=== PATIENT | female | born 1985 ===

== ENCOUNTER → 2020-03-26 08:10 | Outpatient (BNVA) | payer MEDICAID, SELFPAY | PROVIDERS: PCP Family Medicine; Referring Provider Family Medicine; Visit Provider Student in an Organized Health Care Education/Training Program | DX: L40.50 Arthropathic psoriasis, unspecified (principal); L40.9 Psoriasis, unspecified; Z79.899 Other long term (current) drug therapy | CPT/HCPCS: 99214 ==

== ENCOUNTER 2020-06-24 14:02 | Outpatient (REF) | payer MEDICAID, SELFPAY | END 2020-06-24 14:03 | disposition home or self-care (01) | LOC: HO.LAB 14:02 | PROVIDERS: Visit Provider Internal Medicine | DX: Z20.828 Contact with and (suspected) exposure to other viral communicable diseases (principal) | CPT/HCPCS: 36415; C9803; U0003 ==

== ENCOUNTER → 2020-06-30 12:53 | Outpatient (BNVA) | payer MEDICAID, SELFPAY | PROVIDERS: PCP Family Medicine; Visit Provider Student in an Organized Health Care Education/Training Program | DX: Z76.89 Persons encountering health services in other specified circumstances (principal) ==

== ENCOUNTER 2020-11-03 14:29 | Outpatient (REF) | payer MEDICAID, SELFPAY ==
[2020-11-03 15:02] LABS: MANUAL DIFF FLAG NO
[2020-11-03 15:06] LABS: Basophils Percent Auto 0.1 % (0-2); Eosinophils Absolute Auto 0.6 X10*3/uL (0.0-0.4); Eosinophils Percent Auto 6.9 % (0-4); Hematocrit 36.5 % (37-47); Hemoglobin 11.6 g/dl (12.0-16.0); Imm Gran Abs Auto 0.02 X10*3/uL (0.00-0.03); Imm Gran Pct Auto 0.2 % (0.0-0.4); Lymphocytes Absolute Auto 2.1 X10*3/uL (1.2-4.9); Lymphocytes Percent Auto 25.6 % (20-40); Mean Corpuscular HGB Conc 31.8 g/dl (31.0-35.0); Mean Corpuscular Hemoglobin 27.6 pg (27.0-33.0); Mean Corpuscular Volume 86.7 fL (80-98); Mean Platelet Volume 10.4 fL (9.4-12.3); Monocytes Absolute Auto 0.7 X10*3/uL (0.1-1.2); Monocytes Percent Auto 8.1 % (2-11); Neutrophils Absolute Auto 4.8 X10*3/uL (2.0-8.3); Neutrophils Percent Auto 59.1 % (45-73); Platelet Count 336 X10*3/uL (160-400); Red Blood Count 4.21 X10*6/uL (4.20-5.50); Red Cell Distribution Width 14.3 % (11.0-16.0); White Blood Count 8.1 X10*3/uL (4.8-10.8)
[2020-11-03 15:29] LABS: Alanine Aminotransferase 13 U/L (0-31); Albumin Level 4.1 g/dL (3.5-5.0); Alkaline Phosphatase 81 U/L (39-117); Anion Gap 12 (12-20); Aspartate Amino Transferase 16 U/L (5-31); Bilirubin Total 0.4 mg/dL (0.0-1.0); Blood Urea Nitrogen 12 mg/dL (9-16); C Reactive Protein 2.13 mg/dL (< or = 0.50); Calcium 9.3 mg/dL (8.4-10.2); Carbon Dioxide 25 mmol/L (22-29); Chloride 108 mmol/L (96-108); Estimated Glomerular Filt Rate > 60; Glucose Random 73 mg/dL (60-115); Potassium 4.6 mmol/L (3.3-5.1); Sodium 140 mmol/L (135-145); Total Protein 6.9 g/dL (6.5-8.0)
[2020-11-03 15:43] LABS: Erythrocyte Sedimentation Rate 28 MM/HR (0-20)
== END 2020-11-03 14:30 | disposition home or self-care (01) ==
LOC: HO.LAB 14:29
PROVIDERS: PCP Family Medicine; Visit Provider Student in an Organized Health Care Education/Training Program
DX: L40.50 Arthropathic psoriasis, unspecified (principal)
CPT/HCPCS: 36415; 80053; 85025; 85652; 86140

== ENCOUNTER → 2020-11-05 13:57 | Outpatient (BNVA) | payer MEDICAID, SELFPAY | PROVIDERS: Visit Provider Student in an Organized Health Care Education/Training Program ==

== ENCOUNTER → 2020-12-17 07:47 | Outpatient (BNVA) | payer MEDICAID, SELFPAY | PROVIDERS: PCP Family Medicine; Visit Provider Student in an Organized Health Care Education/Training Program | DX: L40.50 Arthropathic psoriasis, unspecified (principal) | CPT/HCPCS: 99212 ==

== ENCOUNTER 2021-02-11 13:40 | Emergency (ER) | payer OTHER, MEDICAID, SELFPAY ==
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
[2021-02-11 14:05] VITALS: BP 108/46; PULSE 69; RESP 18; TEMP 36.4; O2SAT 99; BMI 52.8
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
== END 2021-02-11 18:20 | disposition home or self-care (01) ==
PROVIDERS: Emergency Provider Emergency Medicine; PCP Family Medicine
DX: S13.4XXA Sprain of ligaments of cervical spine, initial encounter (principal); V43.62XA Car passenger injured in collision with other type car in traffic accident, initial encounter; Y93.89 Activity, other specified; Y92.414 Local residential or business street as the place of occurrence of the external cause; Y99.9 Unspecified external cause status
CPT/HCPCS: 72125; 72128; 72131; 73030; 99282; 99284

== ENCOUNTER 2021-03-01 14:23 | Outpatient (REF) | payer MEDICAID, SELFPAY ==
--- NOTE | ~2021-03-01 | XR_ITS ---
EXAMINATION: XR HAND-BILATERAL CLINICAL INFORMATION: Psoriasis. COMPARISON: Left hand radiographs done on 07/21/2013. TECHNIQUE: 3 views each of both hands were obtained. FINDINGS: Right hand: Mild diffuse osteopenia is noted. Arthropathy at the distal radioulnar joint and the ulnar carpal joints are present. Small erosive changes are also noted within the intercarpal joints along the radial aspect of the hand. Erosive arthritic changes are noted at the DIP joint of the third digit. Soft tissues are unremarkable. Left hand: Mild diffuse osteopenia. Arthropathy at the distal radioulnar joint and ulnocarpal joints. Erosive arthropathy is noted at the DIP joint of the third digit. Erosive changes also noted within the distal part of the scaphoid. Soft tissues are unremarkable. XR/XR hand RT min 3V IMPRESSION: Abnormal radiographic appearance of both hands showing features consistent with psoriatic arthropathy.
--- NOTE | ~2021-03-01 | XR_ITS ---
EXAMINATION: XR HAND-BILATERAL CLINICAL INFORMATION: Psoriasis. COMPARISON: Left hand radiographs done on 07/21/2013. TECHNIQUE: 3 views each of both hands were obtained. FINDINGS: Right hand: Mild diffuse osteopenia is noted. Arthropathy at the distal radioulnar joint and the ulnar carpal joints are present. Small erosive changes are also noted within the intercarpal joints along the radial aspect of the hand. Erosive arthritic changes are noted at the DIP joint of the third digit. Soft tissues are unremarkable. Left hand: Mild diffuse osteopenia. Arthropathy at the distal radioulnar joint and ulnocarpal joints. Erosive arthropathy is noted at the DIP joint of the third digit. Erosive changes also noted within the distal part of the scaphoid. Soft tissues are unremarkable. XR/XR hand LT min 3V IMPRESSION: Abnormal radiographic appearance of both hands showing features consistent with psoriatic arthropathy.
[2021-03-01 14:59] LABS: MANUAL DIFF FLAG NO
[2021-03-01 15:03] LABS: Basophils Percent Auto 0.1 % (0-2); Eosinophils Absolute Auto 0.2 X10*3/uL (0.0-0.4); Eosinophils Percent Auto 2.4 % (0-4); Hemoglobin 11.8 g/dl (12.0-16.0); Imm Gran Abs Auto 0.02 X10*3/uL (0.00-0.03); Imm Gran Pct Auto 0.3 % (0.0-0.4); Lymphocytes Percent Auto 27.6 % (20-40); Mean Corpuscular HGB Conc 31.9 g/dl (31.0-35.0); Mean Corpuscular Hemoglobin 27.4 pg (27.0-33.0); Mean Platelet Volume 10.3 fL (9.4-12.3); Monocytes Absolute Auto 0.5 X10*3/uL (0.1-1.2); Monocytes Percent Auto 7.1 % (2-11); Neutrophils Absolute Auto 4.5 X10*3/uL (2.0-8.3); Neutrophils Percent Auto 62.5 % (45-73); Platelet Count 368 X10*3/uL (160-400); Red Cell Distribution Width 14.9 % (11.0-16.0); White Blood Count 7.2 X10*3/uL (4.8-10.8)
[2021-03-01 15:17] LABS: Alanine Aminotransferase 11 U/L (0-31); Albumin Level 4.4 g/dL (3.5-5.0); Alkaline Phosphatase 86 U/L (39-117); Anion Gap 16 (12-20); Aspartate Amino Transferase 18 U/L (5-31); Bilirubin Total 0.5 mg/dL (0.0-1.0); Blood Urea Nitrogen 14 mg/dL (9-16); C Reactive Protein 2.03 mg/dL (< or = 0.50); Calcium 10.1 mg/dL (8.4-10.2); Carbon Dioxide 24 mmol/L (22-29); Chloride 106 mmol/L (96-108); Estimated Glomerular Filt Rate > 60; Glucose Random 92 mg/dL (60-115); Potassium 4.8 mmol/L (3.3-5.1); Sodium 141 mmol/L (135-145); Total Protein 7.3 g/dL (6.5-8.0)
[2021-03-01 16:13] LABS: Erythrocyte Sedimentation Rate 29 MM/HR (0-20)
== END 2021-03-01 14:24 | disposition home or self-care (01) ==
LOC: HO.LAB 14:23
PROVIDERS: PCP Family Medicine; Visit Provider Student in an Organized Health Care Education/Training Program
DX: L40.50 Arthropathic psoriasis, unspecified (principal)
CPT/HCPCS: 36415; 73130; 80053; 85025; 85652; 86140

== ENCOUNTER 2021-03-16 15:32 | Outpatient (REF) | payer MEDICAID, SELFPAY ==
--- NOTE | ~2021-03-16 | XR_ITS ---
EXAMINATION: X-RAY RIGHT ANKLE X-RAY RIGHT FOOT CLINICAL INFORMATION: Pain. COMPARISON: Radiograph of the right foot dated from 04/02/2019. TECHNIQUE: 2 views of the right ankle and 3 views of the right foot were obtained FINDINGS: No evidence of acute fractures or malalignment. The talar dome and ankle mortise are intact. The tibiofibular syndesmosis is preserved. No radiopaque foreign bodies or joint effusions. XR/XR foot RT min 3V IMPRESSION: No acute fractures or malalignment.
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
== END 2021-03-16 15:33 | disposition home or self-care (01) ==
LOC: HO.XRAY 15:32
PROVIDERS: Absent Provider Family Medicine; PCP Family Medicine; Visit Provider Nurse Practitioner Family
DX: M25.571 Pain in right ankle and joints of right foot (principal); M79.671 Pain in right foot
CPT/HCPCS: 73610; 73630

== ENCOUNTER 2021-05-30 12:52 | Outpatient (REF) | payer MEDICAID, SELFPAY ==
[2021-05-30 14:22] LABS: MANUAL DIFF FLAG NO
[2021-05-30 14:35] LABS: Basophils Percent Auto 0.2 % (0-2); Eosinophils Absolute Auto 0.1 X10*3/uL (0.0-0.4); Hematocrit 35.8 % (37.0-47.0); Hemoglobin 11.6 g/dl (12.0-16.0); Imm Gran Abs Auto 0.02 X10*3/uL (0.00-0.03); Imm Gran Pct Auto 0.3 % (0.0-0.4); Lymphocytes Absolute Auto 1.8 X10*3/uL (1.2-4.9); Lymphocytes Percent Auto 27.8 % (20-40); Mean Corpuscular HGB Conc 32.4 g/dl (31.0-35.0); Mean Corpuscular Hemoglobin 28.4 pg (27.0-33.0); Mean Corpuscular Volume 87.7 fL (80.0-98.0); Mean Platelet Volume 10.4 fL (9.4-12.3); Monocytes Absolute Auto 0.5 X10*3/uL (0.1-1.2); Monocytes Percent Auto 7.6 % (2-11); Neutrophils Absolute Auto 4.1 x10*3/uL (2.0-8.3); Neutrophils Percent Auto 62.1 % (45-73); Platelet Count 300 X10*3/uL (160-400); Red Blood Count 4.08 X10*6/uL (4.20-5.50); Red Cell Distribution Width 14.5 % (11.0-16.0); White Blood Count 6.6 X10*3/uL (4.8-10.8)
[2021-05-30 14:58] LABS: Alanine Aminotransferase 15 U/L (0-31); Albumin Level 4.1 g/dL (3.5-5.0); Alkaline Phosphatase 80 U/L (39-117); Anion Gap 11 (12-20); Aspartate Amino Transferase 19 U/L (5-31); Bilirubin Total < 0.2 mg/dL (0.0-1.0); Blood Urea Nitrogen 10 mg/dL (9-16); C Reactive Protein 2.36 mg/dL (< or = 0.50); Calcium 9.8 mg/dL (8.4-10.2); Carbon Dioxide 26 mmol/L (22-29); Chloride 107 mmol/L (96-108); Estimated Glomerular Filt Rate > 60; Glucose Random 90 mg/dL (60-115); Potassium 4.7 mmol/L (3.3-5.1); Sodium 139 mmol/L (135-145); Total Protein 7.2 g/dL (6.5-8.0)
[2021-05-30 15:17] LABS: Erythrocyte Sedimentation Rate 36 MM/HR (0-20)
[2021-05-31 08:07] LABS: HBS Num1 0.53 mIU/mL (0-7.99); ~HepC Num1 0.07 S/CO (0.00-0.79); ~Hepatitis B Surface Antibody NONREACTIVE (Nonreactive); ~Hepatitis C Antibody Nonreactive (Nonreactive)
[2021-05-31 08:34] LABS: HBc Num1 0.06 S/CO (0.00-0.79); HBsAGNum1 0.22 S/CO (0.00-0.99); Hepatitis B Core Antibody Nonreactive (Nonreactive); Hepatitis B Surface Antigen Negative (Negative)
[2021-06-01 08:33] LABS: Hepatitis A Antibody IgM 0.15 Index (0-0.79); ~Hepatitis A Antibody IgM Nonreactive (Nonreactive)
[2021-06-01 21:17] LABS: TS Negative Control Passed; TS Panel A 0; TS Panel B 0; TS Positive Control Passed; TSpotTB Negative (Negative)
== END 2021-05-30 12:53 | disposition home or self-care (01) ==
LOC: HO.LAB 12:52
PROVIDERS: PCP Family Medicine; Visit Provider Nurse Practitioner Family
DX: L40.50 Arthropathic psoriasis, unspecified (principal); Z88.8 Allergy status to other drugs, medicaments and biological substances; Z91.013 Allergy to seafood; Z79.899 Other long term (current) drug therapy
CPT/HCPCS: 36415; 80053; 85025; 85652; 86140; 86481; 86704; 86706; 86709; 86803; 87340; 99212

== ENCOUNTER 2021-08-16 14:45 | Outpatient (REF) | payer MEDICAID, SELFPAY ==
--- NOTE | 2021-08-16 | PFT_ITS ---
FLOWS: FEV1 86% of predicted at 2.55 L. FVC 89% of predicted at 3.19 L. FEV1 to FVC ratio of 0.80. No bronchodilator response. LUNG VOLUMES: Total lung capacity 92% of predicted at 4.52 L. Residual volume 99% of predicted at 1.48 L. Slow vital capacity 89% of predicted at 3.05 L. Expiratory reserve volume 30% of predicted at 0.36 L. Diffusion capacity is normal. IMPRESSION: No obstructive or restrictive ventilatory defect. No bronchodilator response. Decreased expiratory reserve volume suggests extrathoracic restriction likely secondary to abdominal obesity. Steven Sotelo MD AP/MODL / [id number]
== END 2021-08-16 14:46 | disposition home or self-care (01) ==
LOC: HO.RESP 14:45
PROVIDERS: Visit Provider Family Medicine
DX: R07.89 Other chest pain (principal)
CPT/HCPCS: 94060; 94727; 94729

== ENCOUNTER 2021-09-02 12:49 | Outpatient (REF) | payer MEDICAID, SELFPAY ==
[2021-09-02 14:04] LABS: MANUAL DIFF FLAG NO
[2021-09-02 14:12] LABS: Basophils Percent Auto 0.1 % (0-2); Eosinophils Absolute Auto 0.1 X10*3/uL (0.0-0.4); Eosinophils Percent Auto 1.4 % (0-4); Hematocrit 36.7 % (37.0-47.0); Hemoglobin 11.6 g/dl (12.0-16.0); Imm Gran Abs Auto 0.03 X10*3/uL (0.00-0.03); Imm Gran Pct Auto 0.3 % (0.0-0.4); Lymphocytes Absolute Auto 1.8 X10*3/uL (1.2-4.9); Lymphocytes Percent Auto 21.1 % (20-40); Mean Corpuscular HGB Conc 31.6 g/dl (31.0-35.0); Mean Corpuscular Hemoglobin 27.9 pg (27.0-33.0); Mean Corpuscular Volume 88.2 fL (80.0-98.0); Mean Platelet Volume 10.4 fL (9.4-12.3); Monocytes Absolute Auto 0.7 X10*3/uL (0.1-1.2); Monocytes Percent Auto 7.7 % (2-11); Neutrophils Percent Auto 69.4 % (45-73); Platelet Count 358 X10*3/uL (160-400); Red Blood Count 4.16 X10*6/uL (4.20-5.50); Red Cell Distribution Width 15.1 % (11.0-16.0); White Blood Count 8.7 X10*3/uL (4.8-10.8)
[2021-09-02 14:42] LABS: Alanine Aminotransferase 16 U/L (0-31); Albumin Level 4.2 g/dL (3.5-5.0); Alkaline Phosphatase 90 U/L (39-117); Anion Gap 13 (12-20); Aspartate Amino Transferase 18 U/L (5-31); Bilirubin Total 0.3 mg/dL (0.0-1.0); Blood Urea Nitrogen 11 mg/dL (9-16); C Reactive Protein 2.48 mg/dL (< or = 0.50); Calcium 9.8 mg/dL (8.4-10.2); Carbon Dioxide 26 mmol/L (22-29); Chloride 104 mmol/L (96-108); Estimated Glomerular Filt Rate > 60; Glucose Random 88 mg/dL (60-115); Potassium 4.5 mmol/L (3.3-5.1); Sodium 138 mmol/L (135-145); Total Protein 7.2 g/dL (6.5-8.0)
[2021-09-02 14:50] LABS: Erythrocyte Sedimentation Rate 31 MM/HR (0-20)
[2021-09-02 16:02] LABS: Iron 36 mcg/dL (30-160)
[2021-09-02 16:16] LABS: Ferritin 14 ng/mL (10-122)
[2021-09-02 16:22] LABS: Percent Iron Saturation 9 % (15-50); Total Iron Binding Capacity 403 mcg/dL (228-428); Unsaturated Iron Binding 367 ug/dL
== END 2021-09-02 12:50 | disposition home or self-care (01) ==
LOC: HO.LAB 12:49
PROVIDERS: PCP Family Medicine; Visit Provider Nurse Practitioner Family
DX: L40.50 Arthropathic psoriasis, unspecified (principal); D64.9 Anemia, unspecified; Z86.16 Personal history of COVID-19; Z98.84 Bariatric surgery status; Z79.899 Other long term (current) drug therapy
CPT/HCPCS: 36415; 80053; 82728; 83540; 85025; 85652; 86140; 99212

== ENCOUNTER 2021-11-02 12:37 | Outpatient (REF) | payer MEDICAID, SELFPAY ==
[2021-11-02 12:59] LABS: MANUAL DIFF FLAG NO
[2021-11-02 13:36] LABS: Basophils Percent Auto 0.1 % (0-2); Eosinophils Absolute Auto 0.2 X10*3/uL (0.0-0.4); Eosinophils Percent Auto 2.2 % (0-4); Hematocrit 37.5 % (37.0-47.0); Hemoglobin 12.2 g/dl (12.0-16.0); Imm Gran Abs Auto 0.02 X10*3/uL (0.00-0.03); Imm Gran Pct Auto 0.2 % (0.0-0.4); Lymphocytes Absolute Auto 1.7 X10*3/uL (1.2-4.9); Lymphocytes Percent Auto 21.1 % (20-40); Mean Corpuscular HGB Conc 32.5 g/dl (31.0-35.0); Mean Corpuscular Hemoglobin 27.9 pg (27.0-33.0); Mean Corpuscular Volume 85.6 fL (80.0-98.0); Mean Platelet Volume 10.9 fL (9.4-12.3); Monocytes Absolute Auto 0.7 X10*3/uL (0.1-1.2); Monocytes Percent Auto 7.9 % (2-11); Neutrophils Absolute Auto 5.6 x10*3/uL (2.0-8.3); Neutrophils Percent Auto 68.5 % (45-73); Platelet Count 332 X10*3/uL (160-400); Red Blood Count 4.38 X10*6/uL (4.20-5.50); Red Cell Distribution Width 14.6 % (11.0-16.0); White Blood Count 8.2 X10*3/uL (4.8-10.8)
[2021-11-02 14:09] LABS: Alanine Aminotransferase 14 U/L (0-31); Albumin Level 4.3 g/dL (3.5-5.0); Alkaline Phosphatase 80 U/L (39-117); Anion Gap 11 (12-20); Aspartate Amino Transferase 17 U/L (5-31); Bilirubin Total 0.4 mg/dL (0.0-1.0); Blood Urea Nitrogen 15 mg/dL (9-16); C Reactive Protein 2.06 mg/dL (< or = 0.50); Calcium 9.9 mg/dL (8.4-10.2); Carbon Dioxide 27 mmol/L (22-29); Chloride 104 mmol/L (96-108); Estimated Glomerular Filt Rate > 60; Glucose Random 86 mg/dL (60-115); Iron 46 mcg/dL (30-160); Percent Iron Saturation 13 % (15-50); Potassium 4.3 mmol/L (3.3-5.1); Sodium 138 mmol/L (135-145); Total Iron Binding Capacity 361 mcg/dL (228-428); Total Protein 7.2 g/dL (6.5-8.0); Unsaturated Iron Binding 315 ug/dL
[2021-11-02 14:11] LABS: Ferritin 25 ng/mL (10-122)
[2021-11-02 14:14] LABS: Erythrocyte Sedimentation Rate 23 MM/HR (0-20)
== END 2021-11-02 12:38 | disposition home or self-care (01) ==
LOC: HO.LAB 12:37
PROVIDERS: PCP Family Medicine; Visit Provider Nurse Practitioner Family
DX: D64.9 Anemia, unspecified (principal); L40.50 Arthropathic psoriasis, unspecified
CPT/HCPCS: 36415; 80053; 82728; 83540; 85025; 85652; 86140

== ENCOUNTER → 2021-11-28 14:18 | Outpatient (BNVA) | payer MEDICAID, SELFPAY | PROVIDERS: PCP Internal Medicine; Visit Provider Nurse Practitioner Family | DX: L40.50 Arthropathic psoriasis, unspecified (principal); L40.9 Psoriasis, unspecified | CPT/HCPCS: 99212 ==

== ENCOUNTER 2022-02-06 13:38 | Outpatient (REF) | payer MEDICAID, SELFPAY ==
[2022-02-06 13:56] LABS: MANUAL DIFF FLAG NO
[2022-02-06 14:15] LABS: Basophils Percent Auto 0.2 % (0-2); Eosinophils Absolute Auto 0.1 X10*3/uL (0.0-0.4); Eosinophils Percent Auto 2.4 % (0-4); Hematocrit 37.2 % (37.0-47.0); Hemoglobin 12.1 g/dl (12.0-16.0); Imm Gran Abs Auto 0.01 X10*3/uL (0.00-0.03); Imm Gran Pct Auto 0.2 % (0.0-0.4); Lymphocytes Absolute Auto 1.3 X10*3/uL (1.2-4.9); Lymphocytes Percent Auto 25.7 % (20-40); Mean Corpuscular HGB Conc 32.5 g/dl (31.0-35.0); Mean Corpuscular Hemoglobin 29.2 pg (27.0-33.0); Mean Corpuscular Volume 89.6 fL (80.0-98.0); Mean Platelet Volume 11.1 fL (9.4-12.3); Monocytes Absolute Auto 0.4 X10*3/uL (0.1-1.2); Monocytes Percent Auto 8.6 % (2-11); Neutrophils Absolute Auto 3.1 x10*3/uL (2.0-8.3); Neutrophils Percent Auto 62.9 % (45-73); Platelet Count 329 X10*3/uL (160-400); Red Blood Count 4.15 X10*6/uL (4.20-5.50); Red Cell Distribution Width 15.2 % (11.0-16.0)
[2022-02-06 14:43] LABS: Alanine Aminotransferase 12 U/L (0-31); Albumin Level 4.3 g/dL (3.5-5.0); Alkaline Phosphatase 67 U/L (39-117); Anion Gap 15 (12-20); Aspartate Amino Transferase 15 U/L (5-31); Bilirubin Total 0.9 mg/dL (0.0-1.0); Blood Urea Nitrogen 11 mg/dL (9-16); Calcium 9.7 mg/dL (8.4-10.2); Carbon Dioxide 26 mmol/L (22-29); Chloride 107 mmol/L (96-108); Estimated Glomerular Filt Rate > 60; Glucose Random 86 mg/dL (60-115); Potassium 4.4 mmol/L (3.3-5.1); Sodium 144 mmol/L (135-145); Total Protein 7.2 g/dL (6.5-8.0)
[2022-02-06 14:57] LABS: Erythrocyte Sedimentation Rate 22 MM/HR (0-20)
== END 2022-02-06 13:39 | disposition home or self-care (01) ==
LOC: HO.LAB 13:38
PROVIDERS: PCP Family Medicine; Visit Provider Nurse Practitioner Family
DX: L40.50 Arthropathic psoriasis, unspecified (principal)
CPT/HCPCS: 36415; 80053; 85025; 85652; 86140

== ENCOUNTER → 2022-02-28 09:05 | Outpatient (BNVA) | payer MEDICAID, SELFPAY | PROVIDERS: PCP Family Medicine; Visit Provider Nurse Practitioner Family | DX: L40.50 Arthropathic psoriasis, unspecified (principal); M79.672 Pain in left foot | CPT/HCPCS: 99212 ==

== ENCOUNTER 2022-05-04 09:06 | Outpatient (REF) | payer MEDICAID, SELFPAY ==
--- NOTE | ~2022-05-04 | MM_ITS ---
EXAMINATION: MM DIAGNOSTIC DIGITAL BREAST TOMOSYNTHESIS, BILATERAL US DIAGNOSTIC ULTRASOUND BREAST/AXILLA, RIGHT CLINICAL INFORMATION: 36-year-old with recent superficial palpable concern right axilla, smaller than a pea. No prior breast imaging. The lifetime risk of breast cancer based on the Tyrer-Cuzick Model is 17%. COMPARISON: None (current study represents initial baseline exam). TECHNIQUE: Digital breast tomosynthesis is performed in both the craniocaudal and mediolateral oblique views along with computer-aided detection (CAD). Synthesized 2D images are generated from the tomosynthesis. Additional right MLO view is provided. Ultrasound right axillary is performed with patient supine and sitting upright. Grayscale imaging and color Doppler are performed without and with harmonics. Patient is able to point to the site of clinical concern at time of imaging. FINDINGS: There are scattered areas of fibroglandular density (ACR BI-RADS breast composition Category b). Breast tissue composition borders on predominantly fatty. Background stromal and fibroglandular densities appear normal. No significant mass or architectural abnormality or abnormal calcifications. The axilla are unremarkable. The skin contours are smooth. No skin thickening or coarsening of the Cheikh's ligaments. Ultrasound right axilla shows no cystic or solid mass, intradermal lesion, or edema tracking in soft tissue planes. No adenopathy. No hyperemia. Results are discussed with the patient at time of visit. MM/MM tomosynthesis diagnostic BI IMPRESSION: -No mammographic evidence of malignancy or inflammatory changes. -Unremarkable targeted right axillary ultrasound. ASSESSMENT: BI-RADS 1: Negative RECOMMENDATION: 1. Patient should be managed based on the clinical impression. 2. Otherwise, routine annual screening mammography, beginning age 40, or earlier as clinical risk factors warrant. This patient's information was entered into a reminder system with a target due date for their next mammogram.
== END 2022-05-04 09:07 | disposition home or self-care (01) ==
LOC: HO.MAMMO 09:06
PROVIDERS: PCP Family Medicine; Visit Provider Family Medicine
DX: R22.31 Localized swelling, mass and lump, right upper limb (principal)
CPT/HCPCS: 76642; 77062; 77066

== ENCOUNTER 2022-05-31 09:25 | Outpatient (REF) | payer MEDICAID, SELFPAY ==
[2022-05-31 09:43] LABS: MANUAL DIFF FLAG NO
[2022-05-31 10:20] LABS: Basophils Percent Auto 0.3 % (0-2); Eosinophils Absolute Auto 0.1 X10*3/uL (0.0-0.4); Eosinophils Percent Auto 4.5 % (0-4); Hematocrit 37.3 % (37.0-47.0); Imm Gran Abs Auto 0.01 X10*3/uL (0.00-0.03); Imm Gran Pct Auto 0.3 % (0.0-0.4); Lymphocytes Absolute Auto 1.3 X10*3/uL (1.2-4.9); Lymphocytes Percent Auto 41.2 % (20-40); Mean Corpuscular HGB Conc 32.2 g/dl (31.0-35.0); Mean Corpuscular Volume 90.1 fL (80.0-98.0); Monocytes Absolute Auto 0.3 X10*3/uL (0.1-1.2); Monocytes Percent Auto 8.1 % (2-11); Neutrophils Absolute Auto 1.4 x10*3/uL (2.0-8.3); Neutrophils Percent Auto 45.6 % (45-73); Platelet Count 281 X10*3/uL (160-400); Red Blood Count 4.14 X10*6/uL (4.20-5.50); Red Cell Distribution Width 13.4 % (11.0-16.0); White Blood Count 3.1 X10*3/uL (4.8-10.8)
[2022-05-31 11:01] LABS: Alanine Aminotransferase 31 U/L (0-31); Aspartate Amino Transferase 30 U/L (5-31); Estimated Glomerular Filt Rate > 60
[2022-05-31 11:13] LABS: Erythrocyte Sedimentation Rate 16 MM/HR (0-20)
== END 2022-05-31 09:26 | disposition home or self-care (01) ==
LOC: HO.LAB 09:25
PROVIDERS: PCP Family Medicine; Visit Provider Nurse Practitioner Family
DX: L40.50 Arthropathic psoriasis, unspecified (principal); Z79.899 Other long term (current) drug therapy
CPT/HCPCS: 36415; 82565; 84450; 84460; 85025; 85652; 86140; 99212

== ENCOUNTER 2022-06-07 09:34 | Outpatient (REF) | payer MEDICAID, SELFPAY ==
[2022-06-07 09:45] LABS: MANUAL DIFF FLAG NO
[2022-06-07 10:49] LABS: Basophils Percent Auto 0.2 % (0-2); Eosinophils Absolute Auto 0.3 X10*3/uL (0.0-0.4); Eosinophils Percent Auto 6.5 % (0-4); Hematocrit 37.1 % (37.0-47.0); Imm Gran Abs Auto 0.01 X10*3/uL (0.00-0.03); Imm Gran Pct Auto 0.2 % (0.0-0.4); Lymphocytes Absolute Auto 1.3 X10*3/uL (1.2-4.9); Lymphocytes Percent Auto 25.7 % (20-40); Mean Corpuscular HGB Conc 32.3 g/dl (31.0-35.0); Mean Corpuscular Hemoglobin 29.4 pg (27.0-33.0); Mean Corpuscular Volume 90.9 fL (80.0-98.0); Mean Platelet Volume 11.5 fL (9.4-12.3); Monocytes Absolute Auto 0.4 X10*3/uL (0.1-1.2); Monocytes Percent Auto 8.1 % (2-11); Neutrophils Absolute Auto 2.9 x10*3/uL (2.0-8.3); Neutrophils Percent Auto 59.3 % (45-73); Platelet Count 306 X10*3/uL (160-400); Red Blood Count 4.08 X10*6/uL (4.20-5.50); Red Cell Distribution Width 13.4 % (11.0-16.0); White Blood Count 4.9 X10*3/uL (4.8-10.8)
== END 2022-06-07 09:35 | disposition home or self-care (01) ==
LOC: HO.LAB 09:34
PROVIDERS: PCP Family Medicine; Visit Provider Nurse Practitioner Family
DX: L40.50 Arthropathic psoriasis, unspecified (principal)
CPT/HCPCS: 36415; 85025

== ENCOUNTER 2022-07-10 09:42 | Outpatient (REF) | payer MEDICAID, SELFPAY ==
[2022-07-10 09:57] LABS: MANUAL DIFF FLAG NO
[2022-07-10 10:10] LABS: Basophils Percent Auto 0.2 % (0-2); Eosinophils Absolute Auto 0.3 X10*3/uL (0.0-0.4); Eosinophils Percent Auto 5.1 % (0-4); Hematocrit 35.9 % (37.0-47.0); Hemoglobin 11.8 g/dl (12.0-16.0); Imm Gran Abs Auto 0.02 X10*3/uL (0.00-0.03); Imm Gran Pct Auto 0.4 % (0.0-0.4); Lymphocytes Absolute Auto 1.7 X10*3/uL (1.2-4.9); Lymphocytes Percent Auto 32.2 % (20-40); Mean Corpuscular HGB Conc 32.9 g/dl (31.0-35.0); Mean Corpuscular Hemoglobin 30.1 pg (27.0-33.0); Mean Corpuscular Volume 91.6 fL (80.0-98.0); Monocytes Absolute Auto 0.5 X10*3/uL (0.1-1.2); Monocytes Percent Auto 8.8 % (2-11); Neutrophils Absolute Auto 2.7 x10*3/uL (2.0-8.3); Neutrophils Percent Auto 53.3 % (45-73); Platelet Count 285 X10*3/uL (160-400); Red Blood Count 3.92 X10*6/uL (4.20-5.50); Red Cell Distribution Width 13.8 % (11.0-16.0); White Blood Count 5.1 X10*3/uL (4.8-10.8)
== END 2022-07-10 09:43 | disposition home or self-care (01) ==
LOC: HO.LAB 09:42
PROVIDERS: PCP Family Medicine; Visit Provider Nurse Practitioner Family
DX: L40.50 Arthropathic psoriasis, unspecified (principal)
CPT/HCPCS: 36415; 85025

== ENCOUNTER 2022-10-05 12:15 | Outpatient (REF) | payer MEDICAID, SELFPAY ==
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
--- NOTE | 2022-10-05 13:18 | ECG_ITS ---
Test Reason : 287.898 Blood Pressure : / mmHG Vent. Rate : 051 BPM Atrial Rate : 051 BPM P-R Int : 136 ms QRS Dur : 090 ms QT Int : 414 ms P-R-T Axes : 041 040 028 degrees QTc Int : 381 ms Sinus bradycardia Otherwise normal ECG When compared with ECG of 25-OCT-2017 15:26, No significant change was found Referred By: Lilo Aguirre Electronically Signed By:ADIN NIXON
[2022-10-05 13:33] LABS: MANUAL DIFF FLAG NO
[2022-10-05 13:58] LABS: Basophils Percent Auto 0.2 % (0-2); Eosinophils Absolute Auto 0.1 X10*3/uL (0.0-0.4); Eosinophils Percent Auto 3.1 % (0-4); Hematocrit 35.7 % (37.0-47.0); Hemoglobin 11.5 g/dl (12.0-16.0); Lymphocytes Absolute Auto 1.6 X10*3/uL (1.2-4.9); Lymphocytes Percent Auto 34.7 % (20-40); Mean Corpuscular HGB Conc 32.2 g/dl (31.0-35.0); Mean Corpuscular Hemoglobin 29.4 pg (27.0-33.0); Mean Corpuscular Volume 91.3 fL (80.0-98.0); Mean Platelet Volume 11.1 fL (9.4-12.3); Monocytes Absolute Auto 0.5 X10*3/uL (0.1-1.2); Monocytes Percent Auto 11.6 % (2-11); Neutrophils Absolute Auto 2.3 x10*3/uL (2.0-8.3); Neutrophils Percent Auto 50.4 % (45-73); Platelet Count 291 X10*3/uL (160-400); Red Blood Count 3.91 X10*6/uL (4.20-5.50); Red Cell Distribution Width 13.9 % (11.0-16.0); White Blood Count 4.6 X10*3/uL (4.8-10.8)
[2022-10-05 14:38] LABS: Erythrocyte Sedimentation Rate 16 MM/HR (0-20)
[2022-10-05 14:49] LABS: Alanine Aminotransferase 11 U/L (0-31); Albumin Level 4.4 g/dL (3.5-5.0); Alkaline Phosphatase 68 U/L (39-117); Anion Gap 15 (12-20); Aspartate Amino Transferase 16 U/L (5-31); Bilirubin Total 0.9 mg/dL (0.0-1.0); Blood Urea Nitrogen 13 mg/dL (9-16); C Reactive Protein 0.61 mg/dL (< or = 0.50); Calcium 9.6 mg/dL (8.4-10.2); Carbon Dioxide 22 mmol/L (22-29); Chloride 107 mmol/L (96-108); Estimated Glomerular Filt Rate > 60; Glucose Random 83 mg/dL (60-115); Sodium 139 mmol/L (135-145); Total Protein 6.9 g/dL (6.5-8.0)
[2022-10-06 04:26] LABS: HBS Num1 0.76 mIU/mL (0-7.99); HBc Num1 0.09 S/CO (0.00-0.79); HBsAGNum1 0.51 S/CO (0.00-0.99); Hepatitis A Antibody IgM 0.25 Index (0-0.79); Hepatitis B Core Antibody Nonreactive (Nonreactive); Hepatitis B Surface Antigen Negative (Negative); ~HepC Num1 0.07 S/CO (0.00-0.79); ~Hepatitis A Antibody IgM Nonreactive (Nonreactive); ~Hepatitis B Surface Antibody NONREACTIVE (Nonreactive); ~Hepatitis C Antibody Nonreactive (Nonreactive)
[2022-10-08 00:24] LABS: TS Negative Control Passed; TS Panel A 0; TS Panel B 0; TS Positive Control Passed; TSpotTB Negative (Negative)
== END 2022-10-05 12:16 | disposition home or self-care (01) ==
LOC: HO.LAB 12:15
PROVIDERS: PCP Family Medicine; Visit Provider Nurse Practitioner Family
DX: Z11.1 Encounter for screening for respiratory tuberculosis (principal); L40.50 Arthropathic psoriasis, unspecified; M54.50 Low back pain, unspecified; L40.9 Psoriasis, unspecified; Z87.898 Personal history of other specified conditions
CPT/HCPCS: 36415; 72100; 80053; 85025; 85652; 86140; 86481; 86704; 86706; 86709; 86803; 87340; 93005; 99212

== ENCOUNTER 2023-02-08 08:34 | Outpatient (AMB) | payer MEDICAID, SELFPAY ==
--- NOTE | 2023-02-08 08:44 | MHC.OFFVIS ---
Intake Vital Signs 02/08/23 08:45 Height 5 ft 2 in Weight 190 lb 14.725 oz BMI 34.9 BP 104/66 Blood Pressure Location Rt brachial Position Sitting Pulse 58 Pulse Source Pulse Oximeter Temp 97.4 F Temp Source Skin Pulse Oximetry (%) 98 Intake Visit Reasons: PSA Intake Note: Pt seen today for PsA follow up. Lots of knee pain and right hand; inflammation better. Reports hands always being cold, denies changes in color Hris Manager Required: No Accompanied by: Self / Same As Patient Allergies adalimumab [From HUMIRA] Allergy (Unknown, Verified 02/08/23 08:49) Rash seafood Allergy (Verified 02/08/23 08:49) RASH secukinumab [From Cosentyx] Allergy (Verified 02/08/23 08:49) Chest Pain Medication List - Last Reconciled 02/08/23 by Benny Rojas MD acetaminophen 1,000 mg PO Q8H albuterol 90 mcg/actuation mcg inhalation aripiprazole 4 mg PO DAILY baclofen 10 mg PO TID cholecalciferol (vitamin D3) 1,250 mcg PO QWEEK clonidine HCl 0.1 mg PO BID gabapentin 400 mg PO TID hydroxyzine HCl 10 - 20 mg PO Q8H PRN lidocaine 5% 1 patch topical DAILY trazodone 50 mg PO BEDTIME PRN venlafaxine ER 37.5 mg PO DAILY venlafaxine ER 150 mg PO DAILY HPI HPI Comments History of Present Illness Details 37yoF presents for follow-up of Psoriatic Arthritis. She was last seen in 10/08 by Norma Aguirre. Last visit patient complained of squeezing chest pain right after doing the Cosentyx injection. She had an EKG which was unremarkable and she was evaluated by her PCP and was told that no cause for chest pain was found. She has been off the Cosentyx since last visit. Patient is complaining of increasing bilateral knee pain worse in the right knee especially with standing up after sitting down for some time. Right wrist pain. She also has constant mid back pain. She states that her hands are always cold but he never change color to white or blue or purple. [facility] Medical History Allergic urticaria Arthralgia Dermatitis Gestational diabetes mellitus History of PCOS Iron deficiency Mass of finger Seronegative arthritis Surgical History H/O gastric bypass History of tubal ligation Umbilical hernia Family History Mother Thyroid cancer Hypertension Hx of cardiac pacemaker Social History Household Members: Family Housing: House Are you a primary healthcare recruiter to a significant other at home: No Do you presently have visiting nurse or other home services: No Alcohol intake: current Alcohol intake frequency: does not drink Patient Tobacco Use Status: Never used Tobacco e-Cigarette/Vaping Use: Never Used Review of Systems Musc Reports back pain and Reports arthralgias Physical Exam Vital Signs: Last Vital Signs Temp 97.4 F 02/08/23 08:45 Pulse 58 02/08/23 08:45 BP 104/66 02/08/23 08:45 Pulse Ox 98 02/08/23 08:45 BMI result Body Mass Index 34.9 Const General: cooperative, healthy appearing and comfortable Nutritional Appearance: obese Orientation/consciousness: patient oriented x3 Limitations: no limitations HEENT Head: Yes normocephalic and Yes atraumatic Mouth: moist mucous membranes Resp Effort & Inspection: normal respiratory effort and able to speak in complete sentences Auscultation: clear to auscultation bilaterally Cardio Rate: regular rate Rhythm: regular rhythm GI Inspection: No distended Palpation (GI): Soft to palpation Skin General skin exam: no rashes or lesions noted Neuro General: patient oriented x3 Extrem Other: Right wrist tenderness to palpation and pain with full flexion and extension along with crepitus Flexion deformity of the right index PIP Back discomfort with straight leg raise test bilaterally Negative Fabere test bilaterally Brenda test 10-14 cm Bilateral knee crepitus and right knee pain with full flexion Normal nailfold capillaroscopy Results Reviewed Results Reviewed: Previous serology negative RF/CCP/HLA B27/AISHA by IFA Assessment & Plan Assessment & Plan (1) Psoriatic arthritis: Comment: dx around 2009 erosive Humira- Discontinued due Rash Enbrel- 09/2017 - 09/2018 discontinued due to insurance change Xeljanz 11/03 - 04/06 - discontinued due to active disease on exam Cosentyx- 04/06 -10/08 DC due to chest pain Code(s): L40.50 - Arthropathic psoriasis, unspecified Plan: This is a 37-year-old female with is erosive psoriatic arthritis who presents for follow-up. She has been off the Cosentyx since last visit due to chest pain associated with injections. The chest pain lasts about 2-3 minutes. An EKG was unremarkable. Today patient is complaining of worsening right wrist pain as well as bilateral knee pain and back pain. Will check patient's inflammatory markers, check bilateral knee x-rays as well as SI joint x-rays to evaluate for sacroiliitis. Restart Cosentyx with a loading dose as patient has been off the medication for 4 months. Advised patient to use hydroxyzine 30 minutes to 1 hour before doing the Cosentyx injection. Try Salonpas patches for her back pain. Labs today and before next visit in 4 months (2) Psoriasis: Code(s): L40.9 - Psoriasis, unspecified Plan: No psoriasis at this time. Plan I spent 26 minutes reviewing patient's chart, evaluating patient, ordering diagnostic workup, counseling patient and documenting in the chart Orders: Orders Comprehensive Met. Panel Today L40.50 - Arthropathic psoriasis, unspecified C Reactive Protein Today L40.50 - Arthropathic psoriasis, unspecified Complete Blood Count Auto Diff Today L40.50 - Arthropathic psoriasis, unspecified Erythrocyte Sedimentation Rate Today L40.50 - Arthropathic psoriasis, unspecified XR knee LT 3V Today L40.50 - Arthropathic psoriasis, unspecified XR knee RT 3V Today L40.50 - Arthropathic psoriasis, unspecified XR knee standing BI Today L40.50 - Arthropathic psoriasis, unspecified XR sacroiliac joint min 3V Today L40.50 - Arthropathic psoriasis, unspecified Complete Blood Count Auto Diff 4 Months L40.50 - Arthropathic psoriasis, unspecified Comprehensive Met. Panel 4 Months L40.50 - Arthropathic psoriasis, unspecified C Reactive Protein 4 Months L40.50 - Arthropathic psoriasis, unspecified Erythrocyte Sedimentation Rate 4 Months L40.50 - Arthropathic psoriasis, unspecified Medications: New secukinumab (Cosentyx Pen) loading dose: 150 mg at weeks 0, 1, 2, 3, and 4 followed by 150 mg every 4 weeks 5 mL 1RF Coding Level of Care Code Est Pt Level 4 (52254) Diagnoses Psoriatic arthritis L40.50 Psoriasis L40.9
[2023-02-08 08:45] VITALS: BP 104/66; PULSE 58; TEMP 36.3; O2SAT 98; BMI 34.9
== END 2023-02-08 09:17 | disposition home or self-care (01) ==
PROVIDERS: PCP Family Medicine; Visit Provider Student in an Organized Health Care Education/Training Program
DX: L40.50 Arthropathic psoriasis, unspecified (principal); L40.9 Psoriasis, unspecified
CPT/HCPCS: 99214

== ENCOUNTER → 2023-02-08 08:34 | Outpatient (BNVA) | payer MEDICAID, SELFPAY | PROVIDERS: PCP Family Medicine; Visit Provider Student in an Organized Health Care Education/Training Program | DX: L40.50 Arthropathic psoriasis, unspecified (principal); L40.9 Psoriasis, unspecified | CPT/HCPCS: 99212 ==

== ENCOUNTER 2023-02-08 09:24 | Outpatient (REF) | payer MEDICAID, SELFPAY ==
--- NOTE | ~2023-02-08 | XR_ITS ---
EXAMINATION: XR KNEE, RIGHT CLINICAL INFORMATION: Arthropathic psoriasis. COMPARISON: Radiographs dated 01/11/2018. TECHNIQUE: AP, lateral, tunnel, and sunrise views of the right knee. FINDINGS: No fracture or joint effusion. Alignment is anatomic. Joint spaces are maintained. A sclerotic, well marginated bone island is seen within the proximal tibial shaft laterally. No abnormal soft tissue calcification. XR/XR knee LT 4V IMPRESSION: Unremarkable right knee. EXAMINATION: XR KNEE, LEFT CLINICAL INFORMATION: Arthropathic psoriasis. COMPARISON: Radiographs dated 05/21/2019. TECHNIQUE: AP, lateral, tunnel, and sunrise views of the left knee. FINDINGS: No fracture or joint effusion. Alignment is anatomic. Joint spaces are maintained. No abnormal soft tissue calcification. IMPRESSION: Normal left knee.
--- NOTE | ~2023-02-08 | XR_ITS ---
EXAMINATION: XR KNEE, RIGHT CLINICAL INFORMATION: Arthropathic psoriasis. COMPARISON: Radiographs dated 01/11/2018. TECHNIQUE: AP, lateral, tunnel, and sunrise views of the right knee. FINDINGS: No fracture or joint effusion. Alignment is anatomic. Joint spaces are maintained. A sclerotic, well marginated bone island is seen within the proximal tibial shaft laterally. No abnormal soft tissue calcification. XR/XR knee RT 4V IMPRESSION: Unremarkable right knee. EXAMINATION: XR KNEE, LEFT CLINICAL INFORMATION: Arthropathic psoriasis. COMPARISON: Radiographs dated 05/21/2019. TECHNIQUE: AP, lateral, tunnel, and sunrise views of the left knee. FINDINGS: No fracture or joint effusion. Alignment is anatomic. Joint spaces are maintained. No abnormal soft tissue calcification. IMPRESSION: Normal left knee.
--- NOTE | ~2023-02-08 | XR_ITS ---
EXAMINATION: XR SACROILIAC JOINTS CLINICAL INFORMATION: Arthropathic psoriasis. COMPARISON: Sacroiliac joints dated 04/05/2015; lumbar spine radiographs dated 10/05/2022.. TECHNIQUE: AP and bilateral Judet views of the sacroiliac joints FINDINGS: Bones and soft tissues are normal. No fracture. Alignment is anatomic. Sacroiliac joint spaces are well-maintained without erosions or surrounding sclerosis. A transitional lumbosacral junction is more fully appreciated on the lumbar spine radiographs dated 10/05/2022. XR/XR sacroiliac joint min 3V IMPRESSION: Normal sacroiliac joints.
[2023-02-08 10:37] LABS: MANUAL DIFF FLAG NO
[2023-02-08 10:43] LABS: Basophils Percent Auto 0.2 % (0-2); Eosinophils Absolute Auto 0.1 X10*3/uL (0.0-0.4); Hematocrit 36.2 % (37.0-47.0); Hemoglobin 11.5 g/dl (12.0-16.0); Imm Gran Abs Auto 0.01 X10*3/uL (0.00-0.03); Imm Gran Pct Auto 0.2 % (0.0-0.4); Lymphocytes Absolute Auto 1.6 X10*3/uL (1.2-4.9); Lymphocytes Percent Auto 35.6 % (20-40); Mean Corpuscular HGB Conc 31.8 g/dl (31.0-35.0); Mean Corpuscular Hemoglobin 28.5 pg (27.0-33.0); Mean Corpuscular Volume 89.8 fL (80.0-98.0); Mean Platelet Volume 11.2 fL (9.4-12.3); Monocytes Absolute Auto 0.4 X10*3/uL (0.1-1.2); Monocytes Percent Auto 8.8 % (2-11); Neutrophils Absolute Auto 2.4 x10*3/uL (2.0-8.3); Neutrophils Percent Auto 53.2 % (45-73); Platelet Count 309 X10*3/uL (160-400); Red Blood Count 4.03 X10*6/uL (4.20-5.50); Red Cell Distribution Width 15.2 % (11.0-16.0); White Blood Count 4.4 X10*3/uL (4.8-10.8)
[2023-02-08 11:04] LABS: Alanine Aminotransferase 14 U/L (0-31); Albumin Level 4.2 g/dL (3.5-5.0); Alkaline Phosphatase 65 U/L (39-117); Anion Gap 9 (12-20); Aspartate Amino Transferase 19 U/L (5-31); Bilirubin Total 0.7 mg/dL (0.0-1.0); Blood Urea Nitrogen 11 mg/dL (9-16); C Reactive Protein 0.23 mg/dL (< or = 0.50); Calcium 9.5 mg/dL (8.4-10.2); Carbon Dioxide 26 mmol/L (22-29); Chloride 108 mmol/L (96-108); Estimated Glomerular Filt Rate > 60; Glucose Random 86 mg/dL (60-115); Potassium 4.4 mmol/L (3.3-5.1); Sodium 139 mmol/L (135-145); Total Protein 7.3 g/dL (6.5-8.0)
[2023-02-08 11:29] LABS: Erythrocyte Sedimentation Rate 13 MM/HR (0-20)
== END 2023-02-08 09:25 | disposition home or self-care (01) ==
LOC: HO.10HDL 09:24
PROVIDERS: PCP Family Medicine; Visit Provider Student in an Organized Health Care Education/Training Program
DX: L40.50 Arthropathic psoriasis, unspecified (principal); R07.9 Chest pain, unspecified; M54.9 Dorsalgia, unspecified; M25.531 Pain in right wrist; Z79.899 Other long term (current) drug therapy
CPT/HCPCS: 36415; 72202; 73564; 80053; 85025; 85652; 86140

== ENCOUNTER 2023-06-19 07:43 | Outpatient (REF) | payer MEDICAID, SELFPAY ==
[2023-06-19 11:21] LABS: MANUAL DIFF FLAG NO
[2023-06-19 11:24] LABS: Basophils Percent Auto 0.2 % (0-2); Eosinophils Absolute Auto 0.1 X10*3/uL (0.0-0.4); Eosinophils Percent Auto 2.8 % (0-4); Hematocrit 33.4 % (37.0-47.0); Hemoglobin 10.8 g/dl (12.0-16.0); Imm Gran Abs Auto 0.01 X10*3/uL (0.00-0.03); Imm Gran Pct Auto 0.2 % (0.0-0.4); Lymphocytes Absolute Auto 1.5 X10*3/uL (1.2-4.9); Lymphocytes Percent Auto 34.8 % (20-40); Mean Corpuscular HGB Conc 32.3 g/dl (31.0-35.0); Mean Corpuscular Hemoglobin 27.8 pg (27.0-33.0); Mean Corpuscular Volume 86.1 fL (80.0-98.0); Mean Platelet Volume 11.2 fL (9.4-12.3); Monocytes Absolute Auto 0.4 X10*3/uL (0.1-1.2); Monocytes Percent Auto 9.6 % (2-11); Neutrophils Absolute Auto 2.2 x10*3/uL (2.0-8.3); Neutrophils Percent Auto 52.4 % (45-73); Platelet Count 277 X10*3/uL (160-400); Red Blood Count 3.88 X10*6/uL (4.20-5.50); Red Cell Distribution Width 15.8 % (11.0-16.0); White Blood Count 4.3 X10*3/uL (4.8-10.8)
[2023-06-19 11:56] LABS: Alanine Aminotransferase 11 U/L (0-31); Albumin Level 4.1 g/dL (3.5-5.0); Alkaline Phosphatase 60 U/L (39-117); Anion Gap 13 (12-20); Aspartate Amino Transferase 17 U/L (5-31); Bilirubin Total 0.6 mg/dL (0.0-1.0); Blood Urea Nitrogen 13 mg/dL (9-16); C Reactive Protein 0.52 mg/dL (< or = 0.50); Calcium 9.1 mg/dL (8.4-10.2); Carbon Dioxide 23 mmol/L (22-29); Chloride 108 mmol/L (96-108); Estimated Glomerular Filt Rate > 60; Glucose Random 89 mg/dL (60-115); Potassium 3.9 mmol/L (3.3-5.1); Sodium 140 mmol/L (135-145); Total Protein 7.1 g/dL (6.5-8.0)
[2023-06-19 12:00] LABS: Erythrocyte Sedimentation Rate 23 MM/HR (0-20)
== END 2023-06-19 07:44 | disposition home or self-care (01) ==
LOC: HO.10HDL 07:43
PROVIDERS: Visit Provider Student in an Organized Health Care Education/Training Program
DX: L40.50 Arthropathic psoriasis, unspecified (principal); L40.9 Psoriasis, unspecified; Z79.620 Long term (current) use of immunosuppressive biologic
CPT/HCPCS: 36415; 80053; 85025; 85652; 86140; 99212

== ENCOUNTER 2023-06-19 07:53 | Outpatient (AMB) | payer MEDICAID, SELFPAY ==
[2023-06-19 07:59] VITALS: BP 104/82; PULSE 90; TEMP 36.5; O2SAT 96; BMI 34.8
--- NOTE | 2023-06-19 07:59 | A.OFFVIS_ITS ---
Intake Vital Signs 06/19/23 07:59 Height 5 ft 2 in Weight 190 lb 4.143 oz BMI 34.8 BP 104/82 Blood Pressure Location Rt brachial Position Sitting Pulse 90 Pulse Source Pulse Oximeter Temp 97.7 F Temp Source Skin Pulse Oximetry (%) 96 Oxygen Delivery Method Room Air Intake Visit Reasons: PsA Allergies adalimumab [From HUMIRA] Allergy (Unknown, Verified 02/08/23 08:49) Rash seafood Allergy (Verified 02/08/23 08:49) RASH secukinumab [From Cosentyx] Allergy (Verified 02/08/23 08:49) Chest Pain HPI HPI Comments History of Present Illness Details 37yoF presents for follow-up of Psoriati c Arthritis. She was last seen in 02/07 Patient states that she is doing well overall. She had COVID infection last month and held her Cosentyx. She will be doing the Cosentyx injection soon. She states that she was having intermittent right upper chest tenderness to palpation. This has gone away. She denies any psoriasis rashes. No other complaints [facility] Medical History Dermatitis Gestational diabetes mellitus Allergic urticaria Iron deficiency Seronegative arthritis History of PCOS Arthralgia Mass of finger Surgical History Umbilical hernia History of tubal ligation H/O gastric bypass Family History Mother Thyroid cancer Hypertension Hx of cardiac pacemaker Social History Household Members: Family Housing: House Are you a primary senior care assistant to a significant other at home: No Do you presently have visiting nurse or other home services: No 75 years or older and lives alone: No Alcohol intake: current Alcohol intake frequency: does not drink Patient Tobacco Use Status: Never used Tobacco e-Cigarette/Vaping Use: Never Used Review of Systems Musc Denies arthralgias and Denies joint swelling Skin/Breast Denies rash Physical Exam Vital Signs: Last Vital Signs Temp 97.7 F 06/19/23 07:59 Pulse 90 06/19/23 07:59 BP 104/82 06/19/23 07:59 Pulse Ox 96 06/19/23 07:59 Oxygen Delivery Method Room Air 06/19/23 07:59 BMI result Body Mass Index 34.8 Const General: cooperative, healthy appearing and comfortable Nutritional Appearance: obese Orientation/consciousness: patient oriented x3 Limitations: no limitations HEENT Head: Yes normocephalic and Yes atraumatic Mouth: moist mucous membranes Resp Effort & Inspection: normal respiratory effort and able to speak in complete sentences Auscultation: clear to auscultation bilaterally Cardio Rate: regular rate Rhythm: regular rhythm GI Inspection: No distended Palpation (GI): Soft to palpation Skin General skin exam: no rashes or lesions noted Neuro General: patient oriented x3 Extrem Other: No active synovitis Flexion deformity of the right index PIP Back discomfort with straight leg raise test bilaterally Negative Fabere test bilaterally Bilateral knee crepitus without pain Normal nailfold capillaroscopy Results Reviewed Results Reviewed: Previous serology negative RF/CCP/HLA B27/AISHA by IFA Assessment & Plan Assessment & Plan (1) Psoriatic arthritis: Comment: dx around 2009 erosive Humira- Discontinued due Rash Enbrel- 09/2017 - 09/2018 discontinued due to insurance change Xeljanz 11/03 - 04/06 - discontinued due to active disease on exam Cosentyx- 04/06 -10/08 DC due to chest pain Code(s): L40.50 - Arthropathic psoriasis, unspecified Plan: This is a 37-year-old female with erosive psoriatic arthritis who presents for follow-up. On Cosentyx 150 mg every 4 weeks. She held her Cosentyx last month as she was having a COVID infection. This has resolved. She will do the Cosentyx injection soon. There is no active synovitis today. Continue with Cosentyx 150 mg every 4 weeks Labs today and before next visit in 4 months (2) Psoriasis: Code(s): L40.9 - Psoriasis, unspecified Plan: No psoriasis at this time. 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 Advised patient to hold Cosentyx at the 1st sign of infection or fever. Plan I spent 26 minutes reviewing patient's chart, evaluating patient, ordering diagnostic workup, counseling patient and documenting in the chart Orders: Orders Complete Blood Count Auto Diff 4 Months L40.50 - Arthropathic psoriasis, unspecified Comprehensive Met. Panel 4 Months L40.50 - Arthropathic psoriasis, unspecified C Reactive Protein 4 Months L40.50 - Arthropathic psoriasis, unspecified Erythrocyte Sedimentation Rate 4 Months L40.50 - Arthropathic psoriasis, unspecified Coding Level of Care Code Est Pt Level 4 (64514) Diagnoses Psoriatic arthritis L40.50 Psoriasis L40.9 penitentiary (current) use of immunosuppressive biologic Z79.620
== END 2023-06-19 08:27 | disposition home or self-care (01) ==
PROVIDERS: PCP Family Medicine; Referring Provider Family Medicine; Visit Provider Student in an Organized Health Care Education/Training Program
DX: L40.50 Arthropathic psoriasis, unspecified (principal); L40.9 Psoriasis, unspecified; Z79.620 Long term (current) use of immunosuppressive biologic
CPT/HCPCS: 99214

== ENCOUNTER 2023-10-12 09:39 | Outpatient (REF) | payer MEDICAID, SELFPAY ==
[2023-10-12 10:57] LABS: MANUAL DIFF FLAG NO
[2023-10-12 11:03] LABS: Basophils Percent Auto 0.4 % (0-2); Eosinophils Absolute Auto 0.1 X10*3/uL (0.0-0.4); Eosinophils Percent Auto 2.8 % (0-4); Hematocrit 36.9 % (37.0-47.0); Hemoglobin 12.1 g/dl (12.0-16.0); Imm Gran Abs Auto 0.01 X10*3/uL (0.00-0.03); Imm Gran Pct Auto 0.2 % (0.0-0.4); Lymphocytes Absolute Auto 1.4 X10*3/uL (1.2-4.9); Lymphocytes Percent Auto 29.3 % (20-40); Mean Corpuscular HGB Conc 32.8 g/dl (31.0-35.0); Mean Corpuscular Hemoglobin 29.9 pg (27.0-33.0); Mean Corpuscular Volume 91.1 fL (80.0-98.0); Mean Platelet Volume 10.6 fL (9.4-12.3); Monocytes Absolute Auto 0.5 X10*3/uL (0.1-1.2); Monocytes Percent Auto 9.3 % (2-11); Neutrophils Absolute Auto 2.9 x10*3/uL (2.0-8.3); Platelet Count 292 X10*3/uL (160-400); Red Blood Count 4.05 X10*6/uL (4.20-5.50); Red Cell Distribution Width 14.6 % (11.0-16.0); White Blood Count 4.9 X10*3/uL (4.8-10.8)
[2023-10-12 11:22] LABS: Alanine Aminotransferase 15 U/L (0-31); Albumin Level 4.2 g/dL (3.5-5.0); Alkaline Phosphatase 71 U/L (39-117); Anion Gap 8 (12-20); Aspartate Amino Transferase 18 U/L (5-31); Bilirubin Total 0.6 mg/dL (0.0-1.0); Blood Urea Nitrogen 12 mg/dL (9-16); C Reactive Protein 0.28 mg/dL (< or = 0.50); Calcium 9.2 mg/dL (8.4-10.2); Carbon Dioxide 26 mmol/L (22-29); Chloride 108 mmol/L (96-108); Estimated Glomerular Filt Rate > 60; Glucose Random 85 mg/dL (60-115); Potassium 4.3 mmol/L (3.3-5.1); Sodium 138 mmol/L (135-145); Total Protein 7.3 g/dL (6.5-8.0)
[2023-10-12 11:44] LABS: Erythrocyte Sedimentation Rate 14 MM/HR (0-20)
== END 2023-10-12 09:40 | disposition home or self-care (01) ==
LOC: HO.10HDL 09:39
PROVIDERS: Visit Provider Student in an Organized Health Care Education/Training Program
DX: L40.50 Arthropathic psoriasis, unspecified (principal)
CPT/HCPCS: 36415; 80053; 85025; 85652; 86140

== ENCOUNTER 2023-10-19 09:49 | Outpatient (REF) | payer MEDICAID, SELFPAY ==
[2023-10-19 11:40] LABS: Hemoglobin 12.6 g/dl (12.0-16.0); Mean Corpuscular HGB Conc 33.2 g/dl (31.0-35.0); Mean Corpuscular Hemoglobin 30.6 pg (27.0-33.0); Mean Corpuscular Volume 92.2 fL (80.0-98.0); Mean Platelet Volume 10.7 fL (9.4-12.3); Platelet Count 295 X10*3/uL (160-400); Red Blood Count 4.12 X10*6/uL (4.20-5.50); Red Cell Distribution Width 14.7 % (11.0-16.0); White Blood Count 4.1 X10*3/uL (4.8-10.8)
[2023-10-19 11:55] LABS: Estimated Average Glucose 94 mg/dL; Hemoglobin A1c % 4.9 % (<6.0)
[2023-10-19 12:24] LABS: Alanine Aminotransferase 17 U/L (0-31); Albumin Level 4.3 g/dL (3.5-5.0); Alkaline Phosphatase 73 U/L (39-117); Anion Gap 14 (12-20); Aspartate Amino Transferase 20 U/L (5-31); Bilirubin Total 0.6 mg/dL (0.0-1.0); Blood Urea Nitrogen 12 mg/dL (9-16); Calcium 9.9 mg/dL (8.4-10.2); Carbon Dioxide 25 mmol/L (22-29); Chloride 105 mmol/L (96-108); Estimated Glomerular Filt Rate > 60; Glucose Random 84 mg/dL (60-115); Iron 51 mcg/dL (30-160); Percent Iron Saturation 18 % (15-50); Potassium 4.5 mmol/L (3.3-5.1); Sodium 139 mmol/L (135-145); Total Iron Binding Capacity 291 mcg/dL (228-428); Total Protein 7.5 g/dL (6.5-8.0); Unsaturated Iron Binding 240 ug/dL
[2023-10-19 12:45] LABS: Ferritin 18 ng/mL (10-122)
== END 2023-10-19 09:50 | disposition home or self-care (01) ==
LOC: HO.HHCL 09:49
PROVIDERS: Visit Provider Student in an Organized Health Care Education/Training Program
DX: Z01.818 Encounter for other preprocedural examination (principal)
CPT/HCPCS: 36415; 80053; 82728; 83036; 83540; 85027

== ENCOUNTER 2023-12-27 12:52 | Outpatient (AMB) | payer MEDICAID, SELFPAY ==
--- NOTE | 2023-12-27 13:11 | MHC.OFFVIS ---
Vital Signs 12/27/23 13:15 Height 5 ft 2 in Weight 181 lb 10.574 oz BMI 33.2 BP 118/70 Blood Pressure Location Lt brachial Position Sitting Pulse 68 Pulse Source Pulse Oximeter Pulse Oximetry (%) 99 Oxygen Delivery Method Room Air Intake Visit Reasons: PsA/CM Intake Note: Patient presents for PsA. Allergies adalimumab [From HUMIRA] Allergy (Unknown, Verified 12/27/23 13:13) Rash seafood Allergy (Verified 12/27/23 13:13) RASH secukinumab [From Cosentyx] Allergy (Verified 12/27/23 13:13) Chest Pain Medication List - Last Reconciled 12/27/23 by Benny Rojas MD acetaminophen 1,000 mg PO Q8H albuterol 90 mcg/actuation mcg inhalation aripiprazole 4 mg PO DAILY baclofen 10 mg PO TID cholecalciferol (vitamin D3) 1,250 mcg PO QWEEK clonidine HCl 0.1 mg PO BID Cosentyx Pen (secukinumab) 150 mg at weeks 0, 1, 2, 3, and 4 followed by 150 mg every 4 weeks NS gabapentin 400 mg PO TID NS hydroxyzine HCl 10 - 20 mg PO Q8H PRN lidocaine 5% 1 patch topical DAILY trazodone 50 mg PO BEDTIME PRN venlafaxine ER 37.5 mg PO DAILY venlafaxine ER 150 mg PO DAILY HPI Comments Details: 38oF presents for follow-up of Psoriatic Arthritis. She was last seen in 06/2023 Patient held her Cosentyx since 09/2023 as she was going for a panniculectomy. He was asked to hold her Cosentyx by her surgeon. Her panniculectomy has healed well. Denies any surgical complications. She states that since she stopped Cosentyx she has had an episode when she went to the emergency room with left knee swelling. Per patient they did an ultrasound and there was no blood clot in her leg. She has been having lower back pain as well as multiple achy and stiff joints since she stopped Cosentyx. Denies any psoriasis patches [facility] Medical History Dermatitis Gestational diabetes mellitus Allergic urticaria Iron deficiency Seronegative arthritis History of PCOS Arthralgia Mass of finger Surgical History S/P panniculectomy Umbilical hernia History of tubal ligation H/O gastric bypass Family History Mother Thyroid cancer Hypertension Hx of cardiac pacemaker Social History Household Members: Family Housing: House Are you a primary primary care nurse practitioner to a significant other at home: No Do you presently have visiting nurse or other home services: No 75 years or older and lives alone: No Alcohol intake: current Alcohol intake frequency: does not drink Patient Tobacco Use Status: Never used Tobacco e-Cigarette/Vaping Use: Never Used Review of Systems Musc Reports back pain, Reports arthralgias and Reports stiffness Skin/Breast Denies rash Physical Exam Vital Signs: Last Vital Signs Pulse 68 12/27/23 13:15 BP 118/70 12/27/23 13:15 Pulse Ox 99 12/27/23 13:15 Oxygen Delivery Method Room Air 12/27/23 13:15 BMI result Body Mass Index 33.2 Const General: cooperative, healthy appearing and comfortable Nutritional Appearance: obese Orientation/consciousness: patient oriented x3 Limitations: no limitations HEENT Head: Yes normocephalic and Yes atraumatic Mouth: moist mucous membranes Resp Effort & Inspection: normal respiratory effort and able to speak in complete sentences Auscultation: clear to auscultation bilaterally Cardio Rate: regular rate Rhythm: regular rhythm GI Inspection: No distended Palpation (GI): Soft to palpation Skin General skin exam: no rashes or lesions noted Neuro General: patient oriented x3 Extrem Other: No active synovitis Flexion deformity of the right index PIP Left lumbar paraspinal muscle tenderness Back discomfort with straight leg raise test bilaterally Negative Fabere test bilaterally Right 4th toe swelling and tenderness Bilateral knee crepitus without pain Normal nailfold capillaroscopy Results Reviewed Results Reviewed: Previous serology negative RF/CCP/HLA B27/AISHA by IFA Assessment & Plan Assessment & Plan (1) Psoriatic arthritis: Comment: dx around 2009 erosive Humira- Discontinued due Rash Enbrel- 09/2017 - 09/2018 discontinued due to insurance change Xeljanz 11/03 - 04/06 - discontinued due to active disease on exam Cosentyx- 04/06 -10/08 DC due to chest pain, restarted afterwards chest pain likely unrelated to Cosentyx Code(s): L40.50 - Arthropathic psoriasis, unspecified Category: Medical Plan: This is a 38-year-old female with erosive psoriatic arthritis who presents for follow-up. Patient was doing quite well on Cosentyx 150 mg q.4 weeks however has held her Cosentyx since September 2023 because she was getting a panniculectomy. She has not had any surgical site complications. She is flaring as she has been off her medicines. Will need to restart Cosentyx. She will need another loading dose. Labs before next visit in 4 months (2) Psoriasis: Code(s): L40.9 - Psoriasis, unspecified Category: Medical Plan: No psoriasis at this time. 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 Advised patient to hold Cosentyx at the 1st sign of infection or fever. Plan I spent 26 minutes reviewing patient's chart, evaluating patient, ordering diagnostic workup, counseling patient and documenting in the chart Orders: Orders C Reactive Protein 4 Months L40.50 - Arthropathic psoriasis, unspecified Erythrocyte Sedimentation Rate 4 Months L40.50 - Arthropathic psoriasis, unspecified Hepatitis A,B,C Profile 4 Months Z11.59 - Encounter for screening for other viral diseases T Spot TB 4 Months Z11.7 - Encounter for testing for latent tuberculosis infection Complete Blood Count Auto Diff 4 Months L40.50 - Arthropathic psoriasis, unspecified Comprehensive Met. Panel 4 Months L40.50 - Arthropathic psoriasis, unspecified Medications: Changed From Cosentyx Pen (secukinumab) 150 mg subcut Q4W 1 mL 2RF NS To Cosentyx Pen (secukinumab) 150 mg at weeks 0, 1, 2, 3, and 4 followed by 150 mg every 4 weeks 4 mL 1RF NS Coding Level of Care Code Est Pt Level 4 (39386) Diagnoses Psoriatic arthritis L40.50 Psoriasis L40.9 residential (current) use of immunosuppressive biologic Z79.620
[2023-12-27 13:15] VITALS: BP 118/70; PULSE 68; O2SAT 99; BMI 33.2
== END 2023-12-27 13:46 | disposition home or self-care (01) ==
PROVIDERS: PCP Family Medicine; Visit Provider Student in an Organized Health Care Education/Training Program
DX: L40.50 Arthropathic psoriasis, unspecified (principal); L40.9 Psoriasis, unspecified; Z79.620 Long term (current) use of immunosuppressive biologic
CPT/HCPCS: 99214

== ENCOUNTER → 2023-12-27 12:52 | Outpatient (BNVA) | payer MEDICAID, SELFPAY | PROVIDERS: PCP Family Medicine; Visit Provider Student in an Organized Health Care Education/Training Program | DX: L40.50 Arthropathic psoriasis, unspecified (principal); L40.9 Psoriasis, unspecified; Z79.620 Long term (current) use of immunosuppressive biologic | CPT/HCPCS: 99212 ==

== ENCOUNTER 2024-04-28 09:19 | Outpatient (REF) | payer MEDICAID, SELFPAY ==
[2024-04-28 10:46] LABS: MANUAL DIFF FLAG NO
[2024-04-28 10:52] LABS: Basophils Percent Auto 0.5 % (0-2); Eosinophils Absolute Auto 0.1 X10*3/uL (0.0-0.4); Eosinophils Percent Auto 2.9 % (0-4); Hematocrit 37.2 % (37.0-47.0); Hemoglobin 12.1 g/dl (12.0-16.0); Imm Gran Abs Auto 0.01 X10*3/uL (0.00-0.03); Imm Gran Pct Auto 0.3 % (0.0-0.4); Lymphocytes Absolute Auto 1.2 X10*3/uL (1.2-4.9); Lymphocytes Percent Auto 30.9 % (20-40); Mean Corpuscular HGB Conc 32.5 g/dl (31.0-35.0); Mean Corpuscular Hemoglobin 29.8 pg (27.0-33.0); Mean Corpuscular Volume 91.6 fL (80.0-98.0); Mean Platelet Volume 10.5 fL (9.4-12.3); Monocytes Absolute Auto 0.3 X10*3/uL (0.1-1.2); Monocytes Percent Auto 8.1 % (2-11); Neutrophils Absolute Auto 2.2 x10*3/uL (2.0-8.3); Neutrophils Percent Auto 57.3 % (45-73); Platelet Count 325 X10*3/uL (160-400); Red Blood Count 4.06 X10*6/uL (4.20-5.50); Red Cell Distribution Width 13.3 % (11.0-16.0); White Blood Count 3.8 X10*3/uL (4.8-10.8)
[2024-04-28 11:07] LABS: Alanine Aminotransferase 19 U/L (0-31); Albumin Level 4.2 g/dL (3.5-5.0); Alkaline Phosphatase 76 U/L (39-117); Anion Gap 9 (12-20); Aspartate Amino Transferase 25 U/L (5-31); Bilirubin Total 0.8 mg/dL (0.0-1.0); Blood Urea Nitrogen 9 mg/dL (9-16); C Reactive Protein 0.42 mg/dL (< or = 0.50); Calcium 9.2 mg/dL (8.4-10.2); Carbon Dioxide 26 mmol/L (22-29); Chloride 108 mmol/L (96-108); Estimated Glomerular Filt Rate > 60; Glucose Random 103 mg/dL (60-115); Potassium 4.3 mmol/L (3.3-5.1); Sodium 139 mmol/L (135-145); Total Protein 7.2 g/dL (6.5-8.0)
[2024-04-28 11:31] LABS: Erythrocyte Sedimentation Rate 14 MM/HR (0-20)
[2024-04-28 11:33] LABS: HBS Num1 1.75 mIU/mL (0-7.99); HBc Num1 0.15 S/CO (0.00-0.79); HBsAGNum1 0.57 S/CO (0.00-0.99); Hepatitis B Core Antibody Nonreactive (Nonreactive); Hepatitis B Surface Antigen Negative (Negative); ~HepC Num1 0.09 S/CO (0.00-0.79); ~Hepatitis A Antibody IgM Nonreactive (Nonreactive); ~Hepatitis B Surface Antibody NONREACTIVE (Nonreactive); ~Hepatitis C Antibody Nonreactive (Nonreactive)
[2024-05-01 05:09] LABS: TS Negative Control Passed; TS Panel A 0; TS Panel B 0; TS Positive Control Passed; TSpotTB Negative (Negative)
== END 2024-04-28 09:20 | disposition home or self-care (01) ==
LOC: HO.10HDL 09:19
PROVIDERS: Visit Provider Student in an Organized Health Care Education/Training Program
DX: Z11.7 Encounter for testing for latent tuberculosis infection (principal); Z11.59 Encounter for screening for other viral diseases; L40.50 Arthropathic psoriasis, unspecified; L40.9 Psoriasis, unspecified; M54.50 Low back pain, unspecified; G89.29 Other chronic pain; Z96.20 Presence of otological and audiological implant, unspecified
CPT/HCPCS: 36415; 80053; 85025; 85652; 86140; 86481; 86704; 86706; 86709; 86803; 87340; 99212

== ENCOUNTER 2024-04-28 09:38 | Outpatient (AMB) | payer MEDICAID, SELFPAY ==
--- NOTE | 2024-04-28 09:46 | MHC.OFFVIS ---
Vital Signs 04/28/24 09:50 Height 5 ft 3.5 in Weight 182 lb 8.684 oz BMI 31.8 BP 115/70 Blood Pressure Location Lt brachial Position Sitting Pulse 64 Pulse Source Pulse Oximeter Pulse Oximetry (%) 99 Oxygen Delivery Method Room Air Intake Visit Reasons: PsA/cm Intake Note: Patient presents for PsA. Allergies adalimumab [From HUMIRA] Allergy (Unknown, Verified 04/28/24 09:50) Rash seafood Allergy (Verified 04/28/24 09:50) RASH secukinumab [From Cosentyx] Allergy (Verified 04/28/24 09:50) Chest Pain Medication List - Last Reconciled 04/28/24 by Benny Rojas MD acetaminophen 1,000 mg PO Q8H albuterol 90 mcg/actuation mcg inhalation aripiprazole 4 mg PO DAILY baclofen 10 mg PO TID cholecalciferol (vitamin D3) 1,250 mcg PO QWEEK clonidine HCl 0.1 mg PO BID Cosentyx Pen (secukinumab) 150 mg at weeks 0, 1, 2, 3, and 4 followed by 150 mg every 4 weeks NS gabapentin 400 mg PO TID NS hydroxyzine HCl 10 - 20 mg PO Q8H PRN lidocaine 5% 1 patch topical DAILY trazodone 50 mg PO BEDTIME PRN venlafaxine ER 37.5 mg PO DAILY venlafaxine ER 150 mg PO DAILY HPI Comments Details: 38oF presents for follow-up of Psoriatic Arthritis. She was last seen in 12/2023 She remains on Cosentyx regularly. She states that last week she had some pain and swelling of her right hand fingers. They lasted 2 or 3 days. It has resolved now. She states that she has been having lower mid back pain. 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 She states that she takes ibuprofen as needed for joint pains. She takes ibuprofen 800 mg about once a week. Psoriasis is well controlled [facility] Medical History Dermatitis Gestational diabetes mellitus Allergic urticaria Iron deficiency Seronegative arthritis History of PCOS Arthralgia Mass of finger Surgical History S/P panniculectomy Umbilical hernia History of tubal ligation H/O gastric bypass Family History Mother Thyroid cancer Hypertension Hx of cardiac pacemaker Social History Household Members: Family Housing: House Are you a primary healthcare network pricing consultant to a significant other at home: No Do you presently have visiting nurse or other home services: No 75 years or older and lives alone: No Alcohol intake: current Alcohol intake frequency: does not drink Patient Tobacco Use Status: Never used Tobacco e-Cigarette/Vaping Use: Never Used Review of Systems Musc Reports back pain, Reports arthralgias and Reports stiffness Skin/Breast Denies rash Physical Exam Vital Signs: Last Vital Signs Pulse 64 04/28/24 09:50 BP 115/70 04/28/24 09:50 Pulse Ox 99 04/28/24 09:50 Oxygen Delivery Method Room Air 04/28/24 09:50 BMI result Body Mass Index 31.8 Const General: cooperative, healthy appearing and comfortable Nutritional Appearance: obese Orientation/consciousness: patient oriented x3 Limitations: no limitations HEENT Head: Yes normocephalic and Yes atraumatic Mouth: moist mucous membranes Resp Effort & Inspection: normal respiratory effort and able to speak in complete sentences Auscultation: clear to auscultation bilaterally Cardio Rate: regular rate Rhythm: regular rhythm GI Inspection: No distended Palpation (GI): Soft to palpation Skin General skin exam: no rashes or lesions noted Neuro General: patient oriented x3 Extrem Other: No active synovitis both hands and wrists Flexion deformity of the right index PIP Lower lumbar vertebral tenderness as well as paraspinal muscle tenderness Back discomfort with straight leg raise test bilaterally Negative Fabere test bilaterally Bilateral knee crepitus without pain Normal nailfold capillaroscopy Assessment & Plan Assessment & Plan (1) Psoriatic arthritis: Comment: dx around 2009 erosive Humira- Discontinued due Rash Enbrel- 09/2017 - 09/2018 discontinued due to insurance change Xeljanz 11/03 - 04/06 - discontinued due to active disease on exam Cosentyx- 04/06 -10/08 DC due to chest pain, restarted afterwards chest pain likely unrelated to Cosentyx Code(s): L40.50 - Arthropathic psoriasis, unspecified Category: Medical Plan: This is a 38-year-old female with erosive psoriatic arthritis who presents for follow-up. doing quite well on Cosentyx 150 mg q.4 weeks. Her complaints are largely related to degenerative arthritis Continue with Cosentyx 150 mg q.4 weeks labs before next visit in 4 months (2) Psoriasis: Code(s): L40.9 - Psoriasis, unspecified Category: Medical Plan: No psoriasis at this time. 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 Advised patient to hold Cosentyx at the 1st sign of infection or fever. (4) Chronic lower back pain: Code(s): M54.50 - Low back pain, unspecified; G89.29 - Other chronic pain Category: Medical Qualifiers: Back pain laterality: midline Sciatica presence: without sciatica Qualified Code(s): M54.50 - Low back pain, unspecified; G89.29 - Other chronic pain Plan: Not interested in PT. Referred to pain manage Plan I spent 26 minutes reviewing patient's chart, evaluating patient, ordering diagnostic workup, counseling patient and documenting in the chart Orders: Orders Complete Blood Count Auto Diff 4 Months L40.50 - Arthropathic psoriasis, unspecified, Z79.620 - prison (current) use of immunosuppressive biologic Comprehensive Met. Panel 4 Months L40.50 - Arthropathic psoriasis, unspecified, Z79.620 - terminal makeup operator (current) use of immunosuppressive biologic C Reactive Protein 4 Months L40.50 - Arthropathic psoriasis, unspecified, Z79.620 - prison (current) use of immunosuppressive biologic Erythrocyte Sedimentation Rate 4 Months L40.50 - Arthropathic psoriasis, unspecified, Z79.620 - terminal makeup operator (current) use of immunosuppressive biologic Referrals Pain Management Referral M51.369 - Other intervertebral disc degeneration, lumbar region without mention of lumbar back pain or lower extremity pain Coding Level of Care Code Est Pt Level 4 (93245) Complex EM visit Add On G2211 Diagnoses Psoriatic arthritis L40.50 Psoriasis L40.9 terminal makeup operator (current) use of immunosuppressive biologic Z79.620 Chronic midline low back pain without sciatica M54.50; G89.29 Back pain laterality: midline Sciatica presence: without sciatica
[2024-04-28 09:50] VITALS: BP 115/70; PULSE 64; O2SAT 99; BMI 31.8
== END 2024-04-28 10:09 | disposition home or self-care (01) ==
PROVIDERS: PCP Family Medicine; Visit Provider Student in an Organized Health Care Education/Training Program
DX: L40.50 Arthropathic psoriasis, unspecified (principal); L40.9 Psoriasis, unspecified; Z79.620 Long term (current) use of immunosuppressive biologic; M54.50 Low back pain, unspecified; G89.29 Other chronic pain
CPT/HCPCS: 99214

== ENCOUNTER 2024-08-29 09:08 | Outpatient (REF) | payer MEDICAID, SELFPAY ==
--- OUTSIDE RECORDS SUMMARY | 2024-08-29 09:43 | XMS_ITS | Encounter Summary ---
Author Organization [employer] Address [address] [place] [address] Care Team Providers Care Media Manager Name Role Phone Ginger Medel MD Primary Care Provider [phone] David Miller Unavailable Unavailable Encounter Details Date Type Department Care Team (Late st Contact Info) Description 07/25/2022 Abstract [facility] MEDICINE [address], [place] [id number] Ginger Medel MD [address], [place] [phone] Social History Tobacco Use Types Packs/Day Years Used Date Smoking Tobacco: Never Assessed Comments Unknown Sex and Gender Information Value Date Recorded Sex Assigned at Female 04/17/2022 10:18 AM EDT Legal Sex Female 10:18 AM EDT Gender Identity Female 04/17/2022 10:18 AM EDT Sexual Orientation Straight 04/17/2022 10 :18 AM EDT documented as of this encounter Plan of Treatment Not on file documented as of this encounter Procedures Procedure Name Priority Date/Time Associated Diagnosis Comments PAP SMEAR Routine 05/14/2009 12:00 AM EST documented in this encounter Results * Pap Smear (05/14/2009 12:00 AM EST) Swab us Historical Provider LAB CYTOLOGY ORDERABLES F inal Result IMAGING documented in this encounter Visit Diagnoses Not on filedocumented in this encounter Additional Health Concerns Assessment Noted Time PHQ-9 Depression Total Score: 4 07/17/19 23 9:08 AM EST documented as of this encounter Care Teams Media Manager Relationship Specialty Start Date End Date Ginger Medel MD [address] [place] [address] PCP - General Family Medicine 06/18/18 David Miller FNP [address] [place] [address] Nurse Practitioner Family Medicine 05/01/23 documented as of this encounter
--- OUTSIDE RECORDS SUMMARY | 2024-08-29 09:43 | XMS_ITS | Clinical Summary ---
Author Organization [address] Address [address] [place] [address] Phone Care Team Providers Care Dinkey Dispatcher Name Role Phone Ginger Medel MD Primary Care Provider [phone] Allergies Active Allergy Reactions Criticality Noted Date Comments Adalimumab Rash 07/03/2019 Shellfish Containing Products Hives 2019 Medications acetaminophen (TYLENOL) 325 mg tablet Take 2 tablets (650 mg total) by mouth. Active acetaminophen (TYLENOL) 500 mg tablet Take 2 tablets (1,000 mg total) by mouth. 10/26/19 22 Active betamethasone dipropionate 0.05 % lotion Apply 5 to 10 drops to scalp twice a day if itchy 07/03/19 20 Active cyanocobalamin, vitamin B-12, 1,000 mcg tablet, sublingual Place 1,000 mcg under the tongue. 03/29/20 23 Active drospirenone-eth inyl estradiol-levome folate calcium (SANTY LINO) 3-0.02-0.451 mg (24) (4) per tablet Take 1 tablet by mouth 1 (one) time each day. 04/19/20 20 Active gabapentin (NEURONTIN) 300 mg capsule Take 1 capsule (300 mg total) by mouth. Active mometasone (ELOCON) 0.1 % cream APLIQUE AL AREA AFECTADA DOS VECES AL JUSTINO CUANDO SEA NECESARIO FOR ECZEMA 03/18/20 20 Active nystatin, bulk, 10 billion unit powder 1 each by Not Applicable route. 06/26/19 24 Active pantoprazole (PROTONIX) 40 mg EC tablet Take 1 tablet (40 mg total) by mouth 1 (one) time each day. 10/26/19 22 Active polyethylene glycol (MIRALAX) 17 gram packet Take 17 g by mouth. 10/26/19 Active simethicone (MYLICON) 80 mg chewable tablet Chew 1 tablet (80 mg total). 10/26/19 Active ursodioL (ACTIGALL) 300 mg capsule Take 2 capsules (600 mg total) by mouth. 10/26/19 Active U5-jjzdekh-anoq- B8-fvmuep-CW 295-2-53-5-1.5 mg tablet Take 1 tablet by mouth 1 (one) time each day. 08/23/19 24 Active medroxyprogester one acetate (PROVERA ORAL) Take by mouth. Active multivitamin (MULTIPLE VITAMINS ORAL) Take 1 tablet by mouth 1 (one) time each day. 08/23/19 Active ONDANSETRON HCL ORAL Take 4 mg by mouth. 10/26/19 Active VITAMIN A ORAL Take 1 capsule by mouth. 08/29/19 Active wheat dextrin 3 gram/3.8 gram powder Take 4 g by mouth. 10/26/19 Active multivitamin-min -iron-FA-vit K (Bariatric Multivitamins) 45 mg iron- 800 mcg-120 mcg capsuleIndicatio ns:Class 1 obesity due to excess calories with body mass index (BMI) of 32.0 to 32.9 in adult, unspecified whether serious comorbidity present,Postoper ative intestinal malabsorption Take 1 capsule by mouth 1 (one) time each day. 90 capsule 2 06/26/19 25 025 Active topiramate (Topamax) 50 mg tabletIndication s:Class 1 obesity due to excess calories with body mass index (BMI) of 32.0 to 32.9 in adult, unspecified whether serious comorbidity present Take 1 tablet (50 mg total) by mouth at bedtime. 30 each 1 07/23/19 25 025 Active phentermine 30 mg capsule Take 1 capsule (30 mg total) by mouth 1 (one) time each day before breakfast. Max Daily Amount: 30 mg 30 each 2 08/23/19 25 025 Active phentermine 15 mg capsuleIndicatio ns:Class 1 obesity due to excess calories with body mass index (BMI) of 32.0 to 32.9 in adult, unspecified whether serious comorbidity present Take 1 capsule (15 mg total) by mouth 1 (one) time each day before breakfast. Max Daily Amount: 15 mg 30 each 07/23/19 25 025 Discontinued Encounters Date Type Department Care Team Description 06/26/2024 10:15 AM EST Office Visit Bariatric Surgery - [address] [place] [address] Cristhian Vaz MD Class 1 obesity due to excess calories with body mass index (BMI) of 32.0 to 32.9 in adult, unspecified whether serious comorbidity present (Primary Dx); Postoperative intestinal malabsorption from Last 3 Months Surgical History Surgery Date Site/Laterality Comments GASTRIC BYPASS 08/2008 PROCEDURE: GASTRIC BYPASS FOR OBESIT; COMMENT: Liz-en-Y and small bowel resection TUBAL LIGATION 01/27/15 PROCEDURE: HISTORICAL TUBAL LIGATION; COMMENT: [facility] GASTRIC BYPASS 11/11/2021 PROCEDURE: RI GASTRIC RSTCV W/BYP W/SM INT RCNSTJ LIMIT ABSRPJ Medical History Medical History Date Comments H/O bariatric surgery 2016 DX:H/O bar iatric surgery; COMMENT: 08/2011 Liz-en-Y and small bowel resection RA (rheumatoid arthritis) ([facility]) 03/19/2018 DX:RA (rheumatoid arthritis) ([facility]) Asthma 11/17/2014 DX:Asthma Anxiety DX:Anxiety Depression 03/19/2018 DX:Depression PCOS (polycystic ovarian syndrome) DX:PCOS (polycystic ovarian syndrome) Vitamin D deficiency 09/22/2021 DX:Vitamin D deficiency Class 3 severe obesity due t o excess calories with serious comorbidity and body mass index (BMI) of 45.0 to 49.9 in adult ([facility]) 03/06/2019 DX:Class 3 severe obesity du e to excess calories with serious comorbidity and body mass index (BMI) of 45.0 to 49.9 in adult ([facility]) Iron deficiency anemia 09/22/2021 DX:Iron d eficiency anemia History of cervical dysplasia 09/22/2021 DX :History of cervical dysplasia; COMMENT: 03/20/12 Eating disorder, unspecified 09/22/2021 DX: Eating disorder, unspecified; COMMENT: Nu Newton PhD Family History Medical History Relation Name Comments Arthritis Maternal Grandmother Other cancer Mother thyroid cancer Prostate cancer Paternal Grandmother Breast cancer Neg Hx Cervical cancer Neg Hx Colon cancer Neg Hx Ovarian cancer Neg Hx Relation Name Status Comments Maternal Grandmother Mother Paternal Grandmother Social History Tobacco Use Types Packs/Day Years Used Date Smoking Tobacco: Never Smokeless Tobacco: Never Alcohol Use Standard Drinks/Week Comments No 0 (1 standard drink = 0.6 oz pur e alcohol) Comments Unknown Sex and Gender Information Value Date Recorded Sex Assigned at Not on file Legal Sex Female 9:05 AM EST Gender Identity Not on file Sexual Orientation Not on file Obstetrics History Last Filed Vital Signs Vital Sign Reading Time Taken Comments Blood Pressure 119/70 06/26/2024 10:11 AM EST Pulse 61 06/26/2024 10:11 AM EST Temperature 36.8 ??C (98.2 ??F) 06/26/2024 10:[address] Respiratory Rate - - Oxygen Saturation - - Inhaled Oxygen Concentration - - Weight 84.8 kg (187 lb) 06/26/2024 10:11 AM EST Height 162.6 cm (5' 4 ) 06/26/2024 10:11 AM EST Body Mass Index 32.1 06/26/2024 10:11 AM EST Plan of Treatment Upcoming Encounters Date Type Department Care Team (Late st Contact Info) Description 09/25/2024 10:00 AM EDT Office Visit Bariatric Surgery - [place] [address] [address] Cristhian Vaz MD [address] [address] 11/24/2024 9:45 AM EDT Office Visit Obstetrics & Gynecology - [facility] [address] [place] [phone] Dequan Gant CNM [address] [place] [phone] Health Maintenance Due Date Last Done Comments Social Influencers of Health Screening 05/27/2022 COVID-19 Vaccine ( - season) 2024 04/19/2021, 08/21/2020, 07/31/2020 DTaP,Tdap,and Td Vaccines (4 - Td or Tdap) 08/14/2024 08/14/2014, 02/11/2013, 03/20/2012 Depression Screening 12/10/2024 12/11/2023 Cervical Cancer Screening: Pap Smear 12/12/2024 12/12/2021 Breast Cancer Screening 11/07/2025 11/08/2023, 11/06 Cholesterol Screening (Lipid Panel) 10/28/2027 10/27/2022 Hepatitis A Vaccines Aged Out 01/23/2012, 08/23/2011, 07/25/2011 No longer eligible based on patient's age to complete this topic Hepatitis B Vaccines Completed 01/23/2012, 08/23/2011, 07/25/2011 HIV Screening Completed 10/27/2022 Hepatitis C Screening Completed 10/27/2022 MMR Vaccines Aged Out 2022 No longer eligi ble based on patient's age to complete this topic Pneumococcal Vaccine: Pediatrics (0 to 5 Years) and At-Risk Patients (6 to 64 Years) Completed 12/24/2023, 06/14/2006 Influenza Vaccine Completed 04/13/2024, , 04/06/2022, Additional history exists HIB Vaccines Aged Out No longer eligi ble based on patient's age to complete this topic HPV Vaccines Aged Out No longer eligi ble based on patient's age to complete this topic IPV Vaccines Aged Out No longer eligi ble based on patient's age to complete this topic Meningococcal ACWY Vaccine Aged Out N o longer eligible based on patient's age to complete this topic Meningococcal B Vacine Aged Out No lo nger eligible based on patient's age to complete this topic RSV Immunization Patients Under 20 months Aged Out No longer eligible based on patient's age to complete this topic Varicella Vaccines Aged Out No longer eligible based on patient's age to complete this topic Procedures Procedure Name Priority Date/Time Associated Diagnosis Comments [facility] SCREENING DIGITAL Routine 11/08/2023 3:48 PM EDT Encounter for screening mammogram for malignant neoplasm of breast PAP SMEAR Routine 12/12/2021 from Last 3 Months or Most Recently Relevant to Health Maintenance Results * [facility]WRENCE SCREENING DIGITAL (11/08/2023 3:48 PM EDT) Anatomical Region Laterality Modality Mammography 11/07/2023 9:10 AM EDT Narrative 11/08/2023 3:48 PM EDT [facility] Diagnostic Imaging Department [address] [place] [id number] Patient: ??CHERRY,PARRISH ?/Age/Sex: 1985 - 38 - Unit#: ??[id number] ? Location/Status: ??SPDIMAM/REG CLI ? Mnemonic/Ordering Site: ??DIGSC/SPMAM Ordering Physician: ??DEQUAN GANT CNM [facility] Screening Digital - 11/07/23 - 0941 Report Status:Signed EXAM: [facility] Screening Digital EXAM DATE AND TIME: 11/07/2023 9:41 AM HISTORY: ??Screening. 100 pound weight loss since 2021 following bariatric surgery per technologist notes. COMPARISON: ??05/04/22 TECHNIQUE: Bilateral digital breast tomosynthesis was performed in the CC and MLO projections. Computer aided detection with Technology Keiretsu 3D 3.1 was em ployed. TISSUE DENSITY: b. There are scattered areas of fibroglandular density. FINDINGS: No suspicious masses, grouped microcalcifications, or areas of architectural distortion are seen. There are rare benign calcifications, including skin calcifications. The vascularity is unremarkable. IMPRESSION: No mammographic evidence of malignancy is seen. No significant change. A negative mammogram in the presence of a clinically suspicious palpable abnormality does not preclude the possibility of malignancy or alter the indications for biopsy. BI-RADS: ??Category 2: Benign RECOMMENDATION(S): 1: Routine screening mammogram BILATERAL in 1 year. Dictating Physician: ??ALESSIA CUEVA MD Electronically Signed by: ??ALESSIA CUEVA MD Dic Date/Time: ??11/08/23 1547 Sign date/Time: ??11/08/231547 Procedure Note Alessia Cueva MD - 02/04/2024 [facility] Diagnostic Imaging Department [address] [place] [address] Patient: PARRISH CHERRY /Age/Sex: 1985 - 38 - F Unit#: [id number] Location/Status: [facility] CLI Mnemonic/Ordering Site: [facility] Ordering Physician: DEQUAN GANT CNM [facility] Screening Digital - 11/07/23 - 0941 Report Status:Signed EXAM: [facility] Screening Digital EXAM DATE AND TIME: 11/07/2023 9:41 AM HISTORY: Screening. 100 pound weight loss since 2021 followingbariatric surgery per technologist notes. COMPARISON: 05/04/22 TECHNIQUE: Bilateral digital breast tomosynthesis was performed in the CCand MLO projections. Computer aided detection with Technology Keiretsu 3D 3.1 wasem ployed. TISSUE DENSITY: b. There are scattered areas of fibroglandular density. FINDINGS: No suspicious masses, grouped microcalcifications, or areas ofarchitectural distortion are seen. There are rare benign calcifications, includingskin calcifications. The vascularity is unremarkable. IMPRESSION: No mammographic evidence of malignancy is seen. No significant change. A negative mammogram in the presence of a clinically suspicious palpable abnormality does not preclude the possibility of malignancy or alter the indications for biopsy. BI-RADS: Category 2: Benign RECOMMENDATION(S): 1: Routine screening mammogram BILATERAL in 1 year. Dictating Physician: ALESSIA CUEVA MD Electronically Signed by: ALESSIA CUEVA MD Dic Date/Time: 11/08/23 1547 Sign date/Time: 11/08/23 1548 us Dequan Gant CNM IMG BI PROCEDURES Final Result * Pap smear (12/12/2021) 12/12/2021 Narrative HISTORICAL TESTING LAB RESULTING AGENCY - 12/20/2021 9:30 AM EDT [id number] THINPREP PAP, IMAGED: NEGATIVE FOR SQUAMOUS INTRAEPITHELIAL LESION AND MALIGNANCY . JOS MURRAY , HANNAH(ASCP) (CASE ELECTRONICALLY SIGNED 12 18 2021) RESULT OF APTIMA HIGH RISK HPV ASSAY: HIGH RISK HPV: ??NEGATIVE (SEROTYPES 16,18,31,33,35,39,45,51,52,56,58,59,66,68) COMPLETED ON 2021-12-14 ADEQUACY: SATISFACTORY ENDOCERVICAL/TRANSFORMATION ZONE COMPONENT PRESENT. SOURCE: THINPREP PAP HPV ANY DX: ??REFLEX 16 AND 18, CERVICAL, IMAGED CLINICAL INFORMATION: HPV ANY DIAGNOSIS. HORMONES, [[id number]] us Dequan Gant CNM LAB CYTOLOGY ORDERABLES Final R esult HISTORICAL TESTING LAB RESULTING AGENCY from Last 3 Months or Most Recently Relevant to Health Maintenance Insurance MEDICAID - [place] Care Teams Dinkey Dispatcher Relationship Specialty Start Date End Date [place], MD Ginger [address] [address] PCP - General Internal Medicine 10/22/14
--- OUTSIDE RECORDS SUMMARY | 2024-08-29 09:43 | XMS_ITS | Clinical Summary ---
Author Organization [employer] Address [address] [facility] [address] [place] [address] Care Team Providers Care Senior Java Web Developer Name Role Phone Ginger Medel MD Primary Care Provider [phone] David Miller Unavailable Unavailable Allergies Active Allergy Reactions Criticality Noted Date Comments Adalimumab Rash Low 07/23/2017 Other reaction(s): Rash Fish-Derived Products Rash Low 11/01/2023 Shellfish Allergy 10/23/2022 Medications * This document contains information received from the source organization and may not represent a complete record from that organization. cloNIDine (Catapres) 0.1 MG tabletIndicatio ns:Anxious depression Take 1 tablet (0.1 mg) by mouth 2 times daily. 180 tablet 3 12/11/2023 Active hydrOXYzine HCl (Atarax) 10 MG tabletIndicatio ns:Anxious depression TAKE 1 TO 2 TABLETS BY MOUTH EVERY 6 HOURS IF NEEDED FOR ANXIETY 200 tablet 5 12/11/2023 Active traZODone (Desyrel) 150 MG tabletIndicatio ns:Anxious depression Take 1 tablet (150 mg) by mouth at bedtime. 90 tablet 3 12/11/2023 Active venlafaxine XR (Effexor XR) 150 MG 24 hr capsuleIndicati ons:Anxious depression Take 1 capsule orally once daily with food. Do not crush or chew. 90 capsule 3 12/11/2023 Active cyclobenzaprine (Flexeril) 10 MG tabletIndicatio ns:Psoriatic arthritis mutilans (CMS/HCC) Take 10 mg by mouth if needed in the morning, at noon, and at bedtime. 10/23/2023 Active ferrous sulfate 324 (65 Fe) MG EC tabletIndicatio ns:Hx of gastric bypass TOME YUDI TABLETA DOS VECES AL D A 05/30/2023 Active Cyanocobalamin (Vitamin B-12) 1000 MCG sublingual tabletIndicatio ns:Hx of gastric bypass Place 1 tablet under the tongue Once per day. 03/29/2023 Active gabapentin (Neurontin) 400 MG capsuleIndicati ons:Psoriatic arthritis mutilans (CMS/HCC) Take 400 mg by mouth 3 times daily. Active cholecalciferol (Vitamin D-3) 25 MCG (1000 UT) tabletIndicatio ns:Hx of gastric bypass Take 1,000 Units by mouth Once per day. Active Multiple Vitamin (multivitamin) capsuleIndicati ons:Hx of gastric bypass Take 1 capsule by mouth Once per day. Active ARIPiprazole (Abilify) 10 MG tabletIndicatio ns:Anxious depression Take 1 tablet (10 mg) by mouth Once per day. 90 tablet 3 12/24/2023 Active Active Problems Problem Noted Date Diagnosed Date Encounter for immunization 12/24/2023 Exercise counseling 12/24/2023 Dietary counseling 12/24/2023 Edentulous 12/24/2023 Overview (12/24/2023): -has dentures due to snoring occasionally -will schedule with specialist for refitting Assessment & Plan (12/24/2023 9:20 AM EDT): -has dentures due to snoring occasionally -will schedule with specialist for refitting Preventative health care 12/21/2023 Overview (12/24/2023): -next physical exam due after 12/23/2024 -eye care facilitated by Dr bree Falcon -dental home is in [facility] proxy given and filled Assessment & Plan (12/24/2023 9:18 AM EDT): -next physical exam due after 12/23/2024 -eye care facilitated by Dr bree Falcon -dental home is in [facility] proxy given and filled 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 Continue current medications: Trazodone 150 mg at bedtime, Abilify 10 mg daily, Venlafaxine 150 mg daily, Clonidine 0.1 mg BID, and Hydroxyzine 10 mg prn anxiety. She also takes Gabapentin 400 mg TID per [employer]. She has discontinued with her therapist. May request new referral in the future if interested. Since this provider will be retiring, patient is now referred back to PCP for further medication management. Any issues or concerns, call [facility]. All her questions were answered and I have wished her well. She agrees with the plan. Assessment & Plan (10/18/2023 1:53 PM EDT): Generally doing OK. Continue current medications: Trazodone 150 mg at bedtime, Abilify 10 mg daily, Venlafaxine 150 mg daily, Clonidine 0.1 mg BID, and Hydroxyzine 10 mg prn anxiety. She also takes Gabapentin 400 mg TID per [employer]. She will F/u with her therapist. F/U with me for final appointment in 6-8 weeks, at which we will discuss plans for transition of care. She agrees with the plan. Assessment & Plan (08/13/2023 10:25 AM EST): Not sleeping well. Will increase to Trazodone 150 mg at bedtime. Continue Abilify 10 mg daily, Venlafaxine 150 mg daily, Clonidine 0.1 mg BID, and Hydroxyzine 10 mg prn anxiety. She also takes Gabapentin 400 mg TID per [employer]. She will F/u with Integrated clinician as needed. On 05/01/2023 provider informed patient that I would be retiring, but we would make every effort to ensure smooth transition of care. F/U with me in 2 months. She agrees with the plan. Assessment & Plan (07/12/2023 10:10 AM EST): Mood has not been stable, stress and anxiety r/t her ESL classes. Will increase to Abilify 10 mg daily. Continue Trazodone 100 mg at bedtime, Venlafaxine 150 mg daily, Clonidine 0.1 mg BID, and Hydroxyzine 10 mg prn anxiety. She also takes Gabapentin 400 mg TID per [employer]. She will F/u with Integrated clinician. On 05/01/2023 provider informed patient that I would be retiring, but we would make every effort to ensure smooth transition of care. F/U with me in 1 month. She agrees with the plan. Hx of gastric bypass 10/23/2022 Overview (12/21/2023): Pt s/p kelli en y bypass 08/2011. She desires revision and had gained most of the weight back. -She under went robotic laparoscopic revision of gastric bypass to long limb bypass w/ Dr. Olivo on 11/11/21. -Doing well. Assessment & Plan (12/21/2023 9:03 AM EDT): Pt s/p kelli en y bypass 08/2011. She desires revision and had gained most of the weight back. -She under went robotic laparoscopic revision of gastric bypass to long limb bypass w/ Dr. Olivo on 11/11/21. -Doing well. Assessment & Plan (10/23/2022 9:05 AM EDT): Pt s/p kelli en y bypass 08/2011. She desires revision and had gained most of the weight back. -She under went robotic laparoscopic revision of gastric bypass to long limb bypass w/ Dr. Olivo on 11/11/21. -Doing well. 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 Serology was negative RF and CCP. -Humira discontinued due to rash. -Enbrel discounted due to insurance. -Xeljanz 11/03-03/2020 discontinued due to inactive disease on exam. -Cosentyx since 03/2021 discontinued due to chest pain. -Rheumatology visit with Dr. Richardson 12/27/23: From Cosentyx Pen (secukinumab) restarted 150 mg subcut Q4W 1 mL 2RF NS To Cosentyx Pen (secukinumab) 150 mg at weeks 0, 1, 2, 3, and 4 followed by 150 mg every 4 weeks 4 mL 1RF NS -Rheumatology visit with Dr. Richardson 04/28/24 doing quite well on Cosentyx 150 mg q.4 weeks Assessment & Plan (12/24/2023 8:19 AM EDT): - Pt followed by rheumatology Lilo Aguirre, SEMAJ - T-spot was neg 04/2017 -MRI of her hands from 2009 demonstrated tenosynovitis. Serology was negative RF and CCP. -Humira discontinued due to rash. -Enbrel discounted due to insurance. -Xeljanz 11/03-03/2020 discontinued due to inactive disease on exam. -Cosentyx since 03/2021 discontinued due to chest pain. -Not on any medication. Assessment & Plan (10/24/2022 7:11 AM EDT): - Pt followed by rheumatology Lilo Aguirre, SEMAJ - T-spot was neg 04/2017 -MRI of her hands from 2009 demonstrated tenosynovitis. Serology was negative RF and CCP. -Humira discontinued due to rash. -Enbrel discounted due to insurance. -Xeljanz 11/03-03/2020 discontinued due to inactive disease on exam. -Cosentyx since 03/2021 discontinued due to chest pain. -Not on any medication. 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 Currently no anemia. Hemaglobin 11.4 w/NCV 86 on 07/27/2021. Ferritin was 14 on 2018. Vitamin D deficiency 04/03/2013 Overview (12/21/2023): Dysplasia of cervix 03/20/2012 Overview (12/24/2023): -Distant hx of dysplasia [facility] cervix. [facility]20[facility]. Assessment & Plan (12/24/2023 8:58 AM EDT): -Distant hx of dysplasia of cervix. [facility] normal [facility]2021. Assessment & Plan (10/24/2022 7:15 AM EDT): -Distant hx of dysplasia of cervix. [facility], last pap was normal 11/2021. We have requested report for our records on 10/24/2022. PCOS (polycystic ovarian syndrome) 03/20/2012 Assessment & Plan (10/24/2022 7:16 AM EDT): -now with monthly periods -continue metformin Mild intermittent asthma without complication Overview (10/24/2022): Well controlled. It is possible she does not have asthma or only with URIs. PFTs revealed very mild degree of restrictive pulmonary disorder, which may be consistent with obesity. A very mild degree of small airway obstructive disorder, which may not be significant. Assessment & Plan (12/24/2023 8:19 AM EDT): Well controlled. It is possible she does not have asthma or only with URIs. PFTs revealed very mild degree of restrictive pulmonary disorder, which may be consistent with obesity. A very mild degree of small airway obstructive disorder, which may not be significant. Assessment & Plan (10/24/2022 7:14 AM EDT): -Well controlled. It is possible she does not have asthma or only with URIs. PFTs revealed very mild degree of restrictive pulmonary disorder, which may be consistent with obesity. A very mild degree of small airway obstructive disorder, which may not be significant. Obesity 12/25/2011 Assessment & Plan (10/24/2022 7:16 AM EDT): -hx of gastric bypass with revision 10/[address] Vaz Resolved Problems Problem Noted Date Diagnosed Date Resolved Date Preop examination 10/19/2023 12/21/2023 Assessment & Plan (10/19/2023 6:05 PM EDT): RCRI is 0 going for moderate risk procedure Today had CBC,chem and hb1AC wnl, only noted mild leukopenia -to f w PCP No indication for EKG There are no contraindications for procedure -advised pt to avoid any NSAIDS,ASA 7 days prior surgery -pt is ok to take w sip of water aripiprazole and clonidine the morning of surgery ,and to hold rest of meds that takes in am . Pt is no longer using Cosentyx for lat 2 months so no further recommendation in regards this biologic agent . -this note will be faxed to surgeon Major depression 07/06/2023 12/21/2023 Panic disorder 06/04/2023 12/21/2023 Physical exam 10/23/2022 12/21/2023 Assessment & Plan (10/24/2022 7:17 AM EDT): -We called her [facility]PER, last PAP was 11/2021, NILM HPV negative. We are requesting results. -Next PE due 10/2023 KOMAL (generalized anxiety disorder) 07/17/2022 12/21/2023 Assessment & Plan (06/04/2023 5:00 PM EST): During IBH Consult Ruchi presenting with depressed mood, loss of interests/pleasure , changes in sleep difficulty falling asleep and difficulty staying asleep , change in appetite or weight reduce appetite, thoughts of worthlessness or guilt, fatigue/loss of energy, difficulty concentrating, excessive worry/anxiety, difficulty controlling worry, restless/keyed up/On edge, easily fatigued, and irritability, and palpitations, sensation of shortness of breath/smothering, Chest pain/discomfort, nausea/abdominal distress; for a period of 18+ mo, Ruchi reports feeling onset of panic attack today, in the context of unable to identify significant stressors. Behavioral Health Integration Plan Internal Follow up with [facility] Assessment & Plan (05/01/2023 9:53 AM EST): Mood is better, more stable. Still having problems concentrating and retaining information. Unclear if this is a recent development since starting ESL classes, or may have also affected her early schooling, since she does not remember much about childhood. She is finding it very distressing. Will request a BE with integrated clinician to help further assess. Also encouraged her to consider referral for counseling. Today 05/01/2023 provider informed patient that I would be retiring within the next year or so, but we would make every effort to ensure smooth transition of care. Continue current medications: Trazodone 100 mg at bedtime, Abilify to 5 mg daily, Venlafaxine 150 mg daily, Clonidine 0.1 mg BID, and Hydroxyzine 10 mg prn anxiety. She also takes Gabapentin 400 mg TID per [employer]. F/U with me in 6-8 weeks. She agrees with the plan. Assessment & Plan (03/19/2023 9:25 AM EDT): Not doing well, with increased anxiety, mood swings, poor sleep with racing thoughts. Will increase Trazodone to 100 mg at bedtime. Increase Abilify to 5 mg daily. Decrease Venlafaxine to 150 mg daily (stop the additional Venlafaxine 37.5 mg daily). Continue Clonidine 0.1 mg BID, and Hydroxyzine 10 mg prn anxiety. She also takes Gabapentin 400 mg TID per [employer]. F/U with me in 4-6 weeks. She agrees with the plan. Assessment & Plan (11/14/2022 9:47 AM EDT): Not doing as well, encouraged to continue looking for other work/activities outside the home. Consider finding a new therapist. Meanwhile, continue Aripiprazole 2 mg 2 tablets daily, Venlafaxine 150 mg plus 37.5 mg daily, Trazodone 50 mg at bedtime, Clonidine 0.1 mg BID, and Hydroxyzine 10 mg prn anxiety. She also takes Gabapentin 400 mg TID per [employer]. F/U with me in 2-3 months. She agrees with the plan. Assessment & Plan (10/24/2022 7:13 AM EDT): -Followed by Margaret for therapy and ARNOLD Guaman for psychiatric prescribing. -Continue venlafaxine 150 mg plus 37.5 mg daily, Abilify 2 mg 2 tablets (total dose of 4 mg) daily, Trazodone 50 mg at bedtime, clonidine 0.1 mg BID; and hydroxyzine 25 mg every 6-8 hours as needed for panic attack. -Lewis BINGHAM Assessment & Plan (09/14/2022 9:32 AM EDT): Doing well. Continue medications as usual. F/U 2 months. She agrees with the plan. Assessment & Plan (07/17/2022 9:44 AM EST): Having increasing anxiety episodes, but avoids Hydroxyzine r/t sedation. Will discontinue Hydroxyzine 25 mg. Will instead have Hydroxyine 10 mg to take 1-2 tabs every 8 hrs prn. Continue other medications as usual. Not interested in resuming counseling. F/U 2 months. She agrees with the plan. Seronegative arthritis 09/11/201310/24 Overview (10/23/2022): Followed by rheumatology 05/31/2022 for psoriatic arthritis. -Humira discontinued due to rash. -Enbrel discounted due to insurance. -Xeljanz 11/03-03/2020 discontinued due to inactive disease on exam. -Cosentyx since 03/2020 discontinued due to chest discomfort. -Not on any medication. Assessment & Plan (10/23/2022 10:15 AM EDT): Followed by rheumatology 05/31/2022 for psoriatic arthritis. -Humira discontinued due to rash. -Enbrel discounted due to insurance. -Xeljanz 11/03-03/2020 discontinued due to inactive disease on exam. -Cosentyx since 03/2020 discontinued due to chest discomfort.. -Not on any medication. Joint pain 07/02/2013 10/24/2022 Immunizations Name Administration Dates Next Due Hep A / Hep B 01/23/2012,08/23/2011,07/25/2011 Influenza Injectable Quadriv alant Preservative Free IIV4 MDCK 03/31/2020 Influenza injectable quadriv alent IIV4 with preservative 03/07/2021,04/02/2018,05/23/2017,05/04,03/25/2015 Influenza injectable quadriv alent preservative free 03/16/2023,04/06/2022,03/07/2021,04/02 Influenza, IIV3, injectable 03/16/2011,0 03/02/2010,04/22/2007,06/14 Influenza, Split (incl. twin fied surface antigen) 04/03/2013,03/20/2012 MMR 2022 Pneumococcal Conjugate PCV 20 12/24/2023 Pneumococcal Polysaccharide PPSV23 06/14/2006 Tdap 08/14/2014,02/11/2013,03/20/2012 Family History Medical History Relation Name Comments Thyroid cancer Mother pacemarker Mother Relation Name Status Comments Mother Social History Tobacco Use Types Packs/Day Years Used Date Smoking Tobacco: Never Smokeless Tobacco: Never Tobacco Cessation:Counseling Given: Not Answered Alcohol Use Standard Drinks/Week Comments Never 0 (1 standard drink = 0.6 oz pur e alcohol) Alcohol Answer Date Recorded Frequency of Alcohol Consumption Not on file 12/24/2023 Average Number of Drinks Not on file 024 Frequency of Binge Drinking Not on file 070 01/2024 Score 0 12/24/2023 Depression Answer Date Recorded Patient Health Questionnaire-9 Score 4 12/11/2023 Patient Health Questionnaire-9 Score 4 12/11/2023 Last PHQ-9: Questionnaire Data Not on file 0 12/11/2023 Housing Stability Answer Date Recorded What is your housing situation today? I have corazon reeves 12/12/[address] you li ve. Do you have problems with any of the following? None of the above 12/12/2023 Food Insecurity Answer Date Recorded Within the past 12 months, y ou worried that your food would run out before you got money to buy more: Sometimes True 2023 Within the past 12 months,th e food you bought just didn't last and you didn't have enough money to get more: Sometimes True 12/12/2023 Transportation Answer Date Recorded In the past 12 months, has l ack of transportation kept you from medical appts, meetings, work or from getting things needed for daily living? No 12/12/2023 Utilities Answer Date Recorded In the past 12 months, has t he electric, gas, oil or water company threatened to shut off services in your home? No 12/12/2023 Depression Answer Date Recorded Patient Health Questionnaire-2 Score 2 12/11/2023 Internet Access Answer Date Recorded Internet Access Q1 Yes 02/18/2024 Internet Access Q2 Not on file 02/18/2024 Comments Unknown Sex and Gender Information Value Date Recorded Sex Assigned at Female 04/17/2022 10:18 AM EDT Legal Sex Female 10:18 AM EDT Gender Identity Female 04/17/2022 10:18 AM EDT Sexual Orientation Straight 04/17/2022 10 :18 AM EDT Last Filed Vital Signs Vital Sign Reading Time Taken Comments Blood Pressure 110/64 12/24/2023 8:58 AM EDT Pulse 63 12/24/2023 8:58 AM EDT Temperature 37.2 ??C (98.9 ??F) 12/24/2023 8:58 AM ED T Respiratory Rate 20 12/24/2023 8:58 AM EDT Oxygen Saturation 98% 12/24/2023 8:58 AM EDT Inhaled Oxygen Concentration - - Weight 83.3 kg (183 lb 9.6 oz) 12/24/2023 8:58 A M EDT Height 160.7 cm (5' 3.25 ) 12/24/2023 8:58 AM ED T Body Mass Index 32.27 12/24/2023 8:58 AM EDT Plan of Treatment Health Maintenance Due Date Last Done Comments COVID-19 Vaccine ( season) 2024 04/19/2021, 08/21/2020, 07/31/2020 Influenza Vaccine (#1) 2024 , 04/06/2022, 03/07/2021, Additional history exists Mammogram 05/04/2024 05/04/2022 DTaP/Tdap/Td Vaccines (4 - Td or Tdap) 08/14/2024 08/14/2014, 02/11/2013, 03/20/2012 Depression Screening 12/10/2024 12/11/2023, 12/11/19 24 SDOH Screening 12/11/2024 12/12/2023 Alcohol/Substance Use Screening 12/23/2024 12/24/2023 Family Planning (PISQ) 12/23/2024 12/24/2023 Tobacco Screening 12/23/2024 12/24/2023 Cervical Cancer Screening 11/16/2026 HPV/Cotest 11/16/2026 11/16/2021 Pap Smear 11/16/2026 11/16/2021, 05/14/2009 Lipid Panel 10/28/2027 10/27/2022 Zoster Vaccines (1 of 2) 11/05/2033 RSV Patients and Patients Aged 60 years or older (1 - 1-dose 75+ series) 11/05/2058 Hepatitis A Vaccines Aged Out 01/23/2012, 08/23/2011, 07/25/2011 No longer eligible based on patient's age to complete this topic Hepatitis B Vaccines Completed 01/23/2012, 08/23/2011, 07/25/2011 HIV Screening Completed 10/27/2022 Hepatitis C Screening Completed 10/27/2022 , 10/05/2022, 05/30/2021 Pneumococcal Vaccine: Pediatrics (0 to 5 Years) and At-Risk Patients (6 to 49) Years) Completed 12/24/2023, 06/14/2006 HIB Vaccines Aged Out No longer eligi ble based on patient's age to complete this topic HPV Vaccines Aged Out No longer eligi ble based on patient's age to complete this topic IPV Vaccines Aged Out No longer eligi ble based on patient's age to complete this topic Meningococcal Vaccine Aged Out No sherlyn hieu eligible based on patient's age to complete this topic RSV under 20 months Aged Out No longe r eligible based on patient's age to complete this topic Rotavirus Vaccines Aged Out No longer eligible based on patient's age to complete this topic Procedures Procedure Name Priority Date/Time Associated Diagnosis Comments HEPATITIS C AB W/REFL TO HCV RNA, QN, PCR Routine 10/27/2022 9:47 AM EDT Routine screening for STI (sexually transmitted infection) HIV 1/2 ANTIGEN/ANTIBODY, FOURTH GENERATION W/RFL Routine 10/27/2022 9:47 AM EDT Routine screening for STI (sexually transmitted infection) LIPID PANEL, STANDARD Routine 10/27/2022 9:47 AM EDT Class 2 severe obesity due to excess calories with serious comorbidity and body mass index (BMI) of 35.0 to 35.9 in adult (CMS/HCC) MAMMOGRAM GENERIC Routine 05/04/2022 9:5 3 AM EST PAP + HPV30 NEG (AGE 30+) Routine 11/16/2021 12:00 AM EDT from Last 3 Months or Most Recently Relevant to Health Maintenance Results * Hepatitis C Antibody with Reflex to HCV, RNA, Quantitative, Real-Time PCR (10/27/2022 9:47 AM EDT) Hepatitis C Antibody NON-REACT THALIA NON-REACT THALIA Comuto Index 0.11 <1.00 Comuto Comment: HCV antibody was non-reactive. There is no laboratory evidence of HCV infection. In most cases, no further action is required. However, if recent HCV exposure is suspected, a test for HCV RNA (test code 16484) is suggested. For additional information please refer to http://[employer]/faq/RZI20q4 (This link is being provided for informational/ educational purposes only.) Blood Venous blood specimen / Unknown 10/27/2022 9:47 AM EDT 10/27/2022 9:47 AM EDT Narrative [facility] - 11/02/2022 2:24 PM EDT FASTING:YES FASTING: YES Ginger Medel MD LAB BLOOD ORDERABLES Final Result [facility] [address], [place] [address] [employer] [place] [employer] [address] [place] [address] * HIV-1/2 Antigen and Antibodies, Fourth Generation, with Reflexes (10/27/2022 9:47 AM EDT) Pathologist [facility] HIV Antigen/Antibody, 4th Generation NON-REAC TIVE NON-REAC TIVE [employer] [facility] Comment: HIV-1 antigen and HIV-1/HIV-2 antibodies were not detected. There is no laboratory evidence of HIV infection. PLEASE NOTE: This information has been disclosed to you from records whose confidentiality may be protected by state law. ??If your state requires such protection, then the state law prohibits you from making any further disclosure of the information without the specific written consent of the person to whom it pertains, or as otherwise permitted by law. A general authorization for the release of medical or other information is NOT sufficient for this purpose. ?? For additional information please refer to http://[employer]/faq/DOG764 (This link is being provided for informational/ educational purposes only.) The performance of this assay has not been clinically validated in patients less than 2 years old. Blood Venous blood specimen / Unknown 10/27/2022 9:47 AM EDT 10/27/2022 9:47 AM EDT Narrative [facility] - 11/02/2022 2:24 PM EDT FASTING:YES FASTING: YES Ginger Medel MD LAB BLOOD ORDERABLES Final Result Performing Organization Address City/[facility]/ZIP Co de Phone Number [facility] [address], [place] [address] [employer] [place] [employer] [address] [place] [address] * Lipid Panel, Standard (10/27/2022 9:47 AM EDT) Cholesterol, Total 176 <200 mg/dL [employer] [place] [employer] HDL Cholesterol 74 > OR = 50 mg/dL [employer] [place] [employer] Triglycerides 57 <150 mg/dL [employer] [place] [employer] LDL Cholesterol 88 mg/dL (calc) [employer] [place] [employer] Comment: Reference range: <100 Desirable range <100 mg/dL for primary prevention; ?? <70 mg/dL for patients with CHD or diabetic patients with > or = 2 CHD risk factors. LDL-C is now calculated using the Kathleen calculation, which is a validated novel method providing better accuracy than the Friedewald equation in the estimation of LDL-C. Filemon CHANCE et al. TATYANA. 2013;310(19): 8756-0677 (http://education.[employer]/faq/XXY240) Chol/HDLC Ratio 2.4 <5.0 (calc) [facility] Non-HDL Cholesterol 102 <130 mg/dL (calc) [facility] [facility] Comment: For patients with diabetes plus 1 major ASCVD risk factor, treating to a non-HDL-C goal of <100 mg/dL (LDL-C of <70 mg/dL) is considered a therapeutic option. Blood Venous blood specimen / Unknown 10/27/2022 9:47 AM EDT 10/27/2022 9:47 AM EDT Narrative [facility] - 11/02/2022 2:24 PM EDT FASTING:YES FASTING: YES Ginger Medel MD LAB BLOOD ORDERABLES Final Result [facility] [address], [place] [address] [facility] [address] [place] [address] * Mammography Report 1 (05/04/2022 9:53 AM EST) Anatomical Region Laterality Modality Breast Bilateral Mammography 05/04/2022 9:53 AM EST Narrative 05/04/2022 10:41 AM EST Refer to the Notes tab for result details [facility] Procedure: Mammography Report 1 Procedure Note Provider, Kaila, - 09/10/2022 Refer to the Notes tab for result details [facility] Procedure: Mammography Report 1 Ginger Medel MD IMG BI PROCEDURES Final Re sult * PAP + HPV30 neg (age 30+) (11/16/2021 12:00 AM EDT) Historical Provider LAB PATHOLOGY ORDERABLES Final Result IMAGING from Last 3 Months or Most Recently Relevant to Health Maintenance Insurance [employer] C3 Care Teams Senior Java Web Developer Relationship Specialty Start Date End Date Ginger Medel MD [address] [place] [address] PCP - General Family Medicine 06/18/18 David Miller FNP [address] [place] [address] Nurse Practitioner Family Medicine 05/01/23
--- OUTSIDE RECORDS SUMMARY | 2024-08-29 09:43 | XMS_ITS | Encounter Summary ---
Author Organization [facility] [employer] Address [address] [place] [address] Care Team Providers Care Cognos Architect Name Role Phone Ginger Medel MD Primary Care Provider [phone] David Miller Unavailable Unavailable Reason for Visit * Reason Comments Med Refill Encounter Details Date Type Department Care Team (Late st Contact Info) Description 07/11/2023 Refill [facility] [address] [place] [address] David Miller FNP Anxious depression Social History Tobacco Use Types Packs/Day Years Used Date Smoking Tobacco: Never Smokeless Tobacco: Never Alcohol Use Standard Drinks/Week Comments Never 0 (1 standard drink = 0.6 oz pur e alcohol) Depression Answer Date Recorded Patient Health Questionnaire-9 Score 8 07/12/2023 Patient Health Questionnaire-9 Score 8 07/12/2023 Last PHQ-9: Questionnaire Data Not on file 0 07/12/2023 Housing Stability Answer Date Recorded What is your housing situation today? I have corazon reeves 04/23/[address] you li ve. Do you have problems with any of the following? None of the above 04/23/2023 Food Insecurity Answer Date Recorded Within the past 12 months, y ou worried that your food would run out before you got money to buy more: Often true 04/23/2023 Within the past 12 months,th e food you bought just didn't last and you didn't have enough money to get more: Often true 11/2022 Transportation Answer Date Recorded In the past 12 months, has l ack of transportation kept you from medical appts, meetings, work or from getting things needed for daily living? No 04/23/2023 Utilities Answer Date Recorded In the past 12 months, has t he electric, gas, oil or water company threatened to shut off services in your home? 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
[2024-08-29 10:25] LABS: MANUAL DIFF FLAG NO
[2024-08-29 10:31] LABS: Basophils Percent Auto 0.6 % (0-2); Eosinophils Absolute Auto 0.1 X10*3/uL (0.0-0.4); Eosinophils Percent Auto 3.1 % (0-4); Hematocrit 34.8 % (37.0-47.0); Hemoglobin 11.6 g/dl (12.0-16.0); Imm Gran Abs Auto 0.01 X10*3/uL (0.00-0.03); Imm Gran Pct Auto 0.3 % (0.0-0.4); Lymphocytes Absolute Auto 1.3 X10*3/uL (1.2-4.9); Mean Corpuscular HGB Conc 33.3 g/dl (31.0-35.0); Mean Corpuscular Hemoglobin 29.7 pg (27.0-33.0); Mean Platelet Volume 10.5 fL (9.4-12.3); Monocytes Absolute Auto 0.3 X10*3/uL (0.1-1.2); Monocytes Percent Auto 9.1 % (2-11); Neutrophils Absolute Auto 1.7 x10*3/uL (2.0-8.3); Neutrophils Percent Auto 48.9 % (45-73); Platelet Count 282 X10*3/uL (160-400); Red Blood Count 3.91 X10*6/uL (4.20-5.50); Red Cell Distribution Width 14.2 % (11.0-16.0); White Blood Count 3.5 X10*3/uL (4.8-10.8)
[2024-08-29 11:10] LABS: Erythrocyte Sedimentation Rate 14 MM/HR (0-20)
[2024-08-29 11:20] LABS: Alanine Aminotransferase 17 U/L (0-31); Albumin Level 3.9 g/dL (3.5-5.0); Alkaline Phosphatase 79 U/L (39-117); Anion Gap 11 (12-20); Aspartate Amino Transferase 23 U/L (5-31); Bilirubin Total 0.5 mg/dL (0.0-1.0); Blood Urea Nitrogen 11 mg/dL (9-16); C Reactive Protein 0.23 mg/dL (< or = 0.50); Calcium 8.8 mg/dL (8.4-10.2); Carbon Dioxide 24 mmol/L (22-29); Chloride 109 mmol/L (96-108); Estimated Glomerular Filt Rate > 60; Glucose Random 84 mg/dL (60-115); Potassium 3.9 mmol/L (3.3-5.1); Sodium 140 mmol/L (135-145)
== END 2024-08-29 09:09 | disposition home or self-care (01) ==
LOC: HO.10HDL 09:08
PROVIDERS: Visit Provider Student in an Organized Health Care Education/Training Program
DX: L40.50 Arthropathic psoriasis, unspecified (principal); Z79.620 Long term (current) use of immunosuppressive biologic
CPT/HCPCS: 36415; 80053; 85025; 85652; 86140; 99212

== ENCOUNTER 2024-08-29 09:16 | Outpatient (AMB) | payer MEDICAID, SELFPAY ==
--- NOTE | 2024-08-29 09:22 | A.OFFVIS_ITS ---
Vital Signs 08/29/24 09:30 Height 5 ft 3.5 in Weight 185 lb 10.067 oz BMI 32.4 BP 112/70 Blood Pressure Location Lt brachial Position Sitting Pulse 63 Pulse Source Pulse Oximeter Pulse Oximetry (%) 98 Oxygen Delivery Method Room Air Intake Visit Reasons: PsA Intake Note: Patient presents for PsA. Allergies adalimumab [From HUMIRA] Allergy (Unknown, Verified 08/29/24 09:29) Rash seafood Allergy (Verified 08/29/24 09:29) RASH secukinumab [From Cosentyx] Allergy (Verified 08/29/24 09:29) Chest Pain Medication List - Last Reconciled 08/29/24 by Eli Holcomb MD acetaminophen 1,000 mg PO Q8H albuterol 90 mcg/actuation mcg inhalation aripiprazole 4 mg PO DAILY baclofen 10 mg PO TID cholecalciferol (vitamin D3) 1,250 mcg PO QWEEK clonidine HCl 0.1 mg PO BID gabapentin 400 mg PO TID hydroxyzine HCl 10 - 20 mg PO Q8H PRN lidocaine 5% 1 patch topical DAILY secukinumab (Cosentyx Pen) 150 mg subcut Q4W trazodone 50 mg PO BEDTIME PRN venlafaxine ER 37.5 mg PO DAILY venlafaxine ER 150 mg PO DAILY HPI Comments Details: Patient is a 38-year-old female with chronic lower back pain, psoriasis and psor iatic arthritis here today for follow up Interval History: Patient last seen 04/28/[address] Rojas. At that time she was on Cosentyx every 4 weeks. She continued to have intermittent pain and swelling specifically to her right hand. When it would occur it would last for about 2-3 days. 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 Her psoriasis was well controlled. Today, Reports that her arthritis is controlled Complaining of low back pain that is worse than usual. Worse at the end of the day. No prolonged AM stiffness Also notes an episode of dactylitis involving one of the toes of her feet. This also resolved Rheumatologic History: Psoriasis and psoriatic arthritis dx around 2009 erosive Humira- Discontinued due Rash Enbrel- 09/2017 - 09/2018 discontinued due to insurance change Xeljanz 11/03 - 04/06 - discontinued due to active disease on exam Cosentyx- 04/06 -10/08 DC due to chest pain, restarted afterwards chest pain likely unrelated to Cosentyx Current Rheumatology Medication(s): Cosentyx 150mg every 4 weeks SC Gabapentin 400mg tid daily PFSH Medical History Dermatitis Gestational diabetes mellitus Allergic urticaria Iron deficiency Seronegative arthritis History of PCOS Arthralgia Mass of finger Surgical History S/P panniculectomy Umbilical hernia History of tubal ligation H/O gastric bypass Family History Mother Thyroid cancer Hypertension Hx of cardiac pacemaker Social History Household Members: Family Housing: House Are you a primary child care sitter to a significant other at home: No Do you presently have visiting nurse or other home services: No 75 years or older and lives alone: No Alcohol intake: current Alcohol intake frequency: does not drink Patient Tobacco Use Status: Never used Tobacco e-Cigarette/Vaping Use: Never Used Review of Systems Const Details: Review of Systems Constitutional: Denies fever, chills, weight loss ENT: Denies vision changes, eye pain or eye redness, dental caries, dry mouth GI: Denies nausea, vomiting, diarrhea, abdominal pain, change in BM Pulm: Denies SOB, ROMO, hemoptysis, wheezing Cards: Denies chest pain, palpitations Skin: Denies Raynaud's, rash, nail changes, photosensitivity, ETCHER MACHINE: Denies headaches, weakness, paresthesias, recurrent falls MSK: as per HPI All other systems reviewed and are unremarkable except noted above Physical Exam Vital Signs: Last Vital Signs Pulse 63 08/29/24 09:30 BP 112/70 08/29/24 09:30 Pulse Ox 98 08/29/24 09:30 Oxygen Delivery Method Room Air 08/29/24 09:30 BMI result Body Mass Index 32.4 Vital signs reviewed Physical Examination CONSTITUITIONAL Patient alert and cooperative. Well appearing and in no apparent painful distress HEENT Conjunctiva and sclera clear. ?Pupils equal round and reactive to light. ?No lymphadenopathy. ? CHEST/RESPIRATORY SYSTEM Normal respiratory effort and able to speak in complete sentences. ?Clear to auscultation bilaterally. ?No crackles, rales, rhonchi, wheezes heard. CARDIAC SYSTEM Regular rate and rhythm. ?S1 and S2 heard no murmurs. ?Radial pulses intact bilaterally MSK Hands: ?Good appraiser auditor strength bilaterally. No deformities noted. ?No synovitis noted to the MCPs, PIPs or DIPs. ?No tenderness to palpation of these joints. [place]-neck deformity noted to the right 2nd PIP Wrists: ?Full range of motion at the wrists without pain. ?No tenderness to palpation or synovitis noted to the wrists. Elbows: Full range of motion without pain. No tenderness, weakness, swelling, increased warmth or erythema. Shoulders: Full range of motion without pain. No tenderness, weakness, swelling, increased warmth or erythema. Hips: Full range of motion without pain. Hip bursa: No tenderness to palpation Knees: ?Full range of motion. ?No tenderness, swelling, increased warmth or erythema.?No effusion or crepitations Ankles: Full range of motion. ?No tenderness, swelling, increased warmth or er ythema.? Feet: ?Negative squeeze test. ?No tenderness to palpation or swelling of the MTPs. Tender points:?No tenderness to palpation of the bilateral trapezius, supraspinatus, greater trochanters, anterior costochondral junctions, bilateral gluteal areas, bilateral suboccipital muscle insertions SKIN Skin intact without rashes. Results Reviewed Results Reviewed: Laboratory Tests 04/28/24 08/29/24 09:26 09:12 WBC 3.5 L RBC 3.91 L Hgb 11.6 L Hct 34.8 L Plt Count 282 ESR 14 Pending Sodium 139 Pending Potassium 4.3 Pending Chloride 108 Pending Carbon Dioxide 26 Pending BUN 9 Pending Creatinine 0.68 Pending Calcium 9.2 D Pending AST 25 Pending ALT 19 Pending Alkaline Phosphatase 76 Pending C-Reactive Protein 0.42 Pending Total Protein 7.2 Pending Albumin 4.2 Pending Infectious serologies 04/28/24 09:26 Hepatitis A IgM Ab Nonreactive Hep Bs Antigen Negative Hep Bs Antibody NONREACTIVE Hep B Core Total Ab Nonreactive Hepatitis C Ab (EIA) Nonreactive TB Test (T-Spot) Com Negative Assessment & Plan Assessment & Plan (1) Psoriatic arthritis: Comment: dx around 2009 erosive Humira- Discontinued due Rash Enbrel- 09/2017 - 09/2018 discontinued due to insurance change Xeljanz 11/03 - 04/06 - discontinued due to active disease on exam Cosentyx- 04/06 -10/08 DC due to chest pain, restarted afterwards chest pain likely unrelated to Cosentyx Code(s): L40.50 - Arthropathic psoriasis, unspecified Category: Medical Plan: #PsA/PsO Patient is a 38-year-old female with psoriasis complicated by psoriatic arthritis currently in remission. There is concern that her low back pain and her dactylitis episode with her toe are evidence of still underlying disease. We will get x-rays of her low back as well as follow up her labs done today they are not resulted as yet. Plan - Cosentyx 150mg SC every 4 weeks - Gabapentin 400mg tid - Check L/S spine and SI joint XR - Follow up labs - RTC 4 months - Labs before follow up: CBC, CMP, ESR, CRP, hepatitis panel, T spot (2) Chronic lower back pain: Code(s): M54.50 - Low back pain, unspecified; G89.29 - Other chronic pain Category: Medical Qualifiers: Back pain laterality: midline Sciatica presence: without sciatica Qualified Code(s): M54.50 - Low back pain, unspecified; G89.29 - Other chronic pain Plan: #Chronic low back pain Patient with known chronic low back pain but now having worsening. We will check x-rays to see if there is involvement of psoriatic arthritis in her SI joints/L-spine. 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 ?Risks include infections, injection site reactions, activation of inflammatory bowel disease. Benefits include improved disease activity. Discussed with patient that if she is feeling sick or having flu-like symptoms she is to hold the medication that week and resolved the following week. Plan I spent 33 minutes reviewing the record and labs, taking a history, examining the patient, discussing the treatment plan, ordering diagnostic work up and documenting in the medical record Orders: Orders Complete Blood Count Auto Diff 4 Months L40.50 - Arthropathic psoriasis, unspecified, Z79.620 - [facility] (current) use of immunosuppressive biologic Erythrocyte Sedimentation Rate 4 Months L40.50 - Arthropathic psoriasis, unspecified, Z79. - manager intermediate (current) use of immunosuppressive biologic T Spot TB 4 Months L40.50 - Arthropathic psoriasis, unspecified, Z79.620 - manager intermediate (current) use of immunosuppressive biologic Comprehensive Met. Panel 4 Months L40.50 - Arthropathic psoriasis, unspecified, Z79.620 - [facility] (current) use of immunosuppressive biologic C Reactive Protein 4 Months L40.50 - Arthropathic psoriasis, unspecified, Z79.620 - [facility] (current) use of immunosuppressive biologic Hepatitis A,B,C Profile 4 Months L40.50 - Arthropathic psoriasis, unspecified, Z79.620 - manager intermediate (current) use of immunosuppressive biologic XR sacroiliac joint min 3V Today G89.29 - Other chronic pain, L40.50 - Arthropathic psoriasis, unspecified, M54.50 - Low back pain, unspecified XR lumbar spine 4V min Today G89.29 - Other chronic pain, L40.50 - Arthropathic psoriasis, unspecified, M54.50 - Low back pain, unspecified Coding Level of Care Code Est Pt Level 4 (21175) Complex EM visit Add On G2211 Diagnoses Psoriatic arthritis L40.50 Chronic midline low back pain without sciatica M54.50; G89.29 Back pain laterality: midline Sciatica presence: without sciatica [facility] (current) use of immunosuppressive biologic Z79.
[2024-08-29 09:30] VITALS: BP 112/70; PULSE 63; O2SAT 98; BMI 32.4
== END 2024-08-29 10:11 | disposition home or self-care (01) ==
LOC: HO.RHE 09:16
PROVIDERS: PCP Family Medicine; Visit Provider Student in an Organized Health Care Education/Training Program
DX: L40.50 Arthropathic psoriasis, unspecified (principal); M54.50 Low back pain, unspecified; G89.29 Other chronic pain; Z79.620 Long term (current) use of immunosuppressive biologic
CPT/HCPCS: 99214

== ENCOUNTER 2024-09-13 10:03 | Outpatient (REF) | payer MEDICAID, SELFPAY ==
--- NOTE | ~2024-09-13 | XR_ITS ---
CLINICAL HISTORY: L40.50 - Arthropathic psoriasis, unspecified 5 views lumbar spine Comparison: None Findings: Normal alignment. Very mild dextrocurvature. No acute fractures or dislocation. No significant degenerative change. IMPRESSION: No acute findings. This document has been electronically signed by: Ariela Pratt MD on 09/15/2024 15:56:50
--- NOTE | ~2024-09-13 | XR_ITS ---
CLINICAL HISTORY: L40.50 - Arthropathic psoriasis, unspecified 3 views sacroiliac joints Comparison: None Findings No acute fractures. There are tiny bilateral sacroiliac joint osteophytes. No joint space loss, erosive change or sclerosis. 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 This document has been electronically signed by: Ariela Pratt MD on 09/15/2024 15:17:09
== END 2024-09-13 10:04 | disposition home or self-care (01) ==
LOC: HO.LAB 10:03
PROVIDERS: PCP Family Medicine; Visit Provider Student in an Organized Health Care Education/Training Program
DX: L40.50 Arthropathic psoriasis, unspecified (principal); M54.50 Low back pain, unspecified; G89.29 Other chronic pain
CPT/HCPCS: 72110; 72202

== ENCOUNTER → 2024-09-13 10:28 | Outpatient (BNV) | payer MEDICAID, SELFPAY | PROVIDERS: PCP Family Medicine; Visit Provider Radiology Diagnostic Radiology | DX: L40.50 Arthropathic psoriasis, unspecified (principal) | CPT/HCPCS: 72110; 72202 ==

== ENCOUNTER 2024-10-31 08:34 | Outpatient (AMB) | payer MEDICAID, SELFPAY ==
--- NOTE | 2024-10-31 08:39 | MHC.OFFVIS ---
Vital Signs 10/31/24 08:50 Height 5 ft 3.5 in Weight 178 lb 2 oz BMI 31.1 BP 126/68 Blood Pressure Location Rt brachial Position Sitting Pulse 68 Pulse Source Pulse Oximeter Pulse Oximetry (%) 98 Oxygen Delivery Method Room Air Intake Visit Reasons: Sacroiliitis, not elsewhere classified Intake Note: Pain today 08/25 Hemodialysis Technician Required: No Accompanied by: Self / Same As Patient Allergies adalimumab [From HUMIRA] Allergy (Unknown, Verified 10/31/24 08:50) Rash seafood Allergy (Verified 10/31/24 08:50) RASH secukinumab [From Cosentyx] Allergy (Verified 10/31/24 08:50) Chest Pain HPI Comments Details: The patient is a 38-year-old female presenting with low back pain. The patient reports the pain began six to eight months ago, shortly after undergoing a panicolectomy. Endorses coccygeal pain primarily precipitated by prolonged sitting, direct pressure, and resting on hard surfaces like the floor or sofa. It persists prominently when stationary for prolonged periods. The onset of this coccygeal pain is detailed as after her surgical intervention. There is mention of past accidental trauma from childhood, possibly aggravating the pain. The pain is isolated to the coccyx with no shooting or radiating pain to other areas such as her legs or feet. The severity has led her to explore various pain management options including [id number] medications like ibuprofen/tylenol and medical interventions like gabapentin and lidocaine patches, with limited success. The pain does impede her activities when sitting or leaning back, notably affecting her daily routine like sitting on soft surfaces. - Onset and Timing: Initiated six to eight months ago after panicolectomy, persisting since. - Quality and Character: Ache, persistent. - Primary Location: Coccygeal area. - Areas of Radiation: No radiation to legs or feet. - Exacerbating Factors: Sitting for long periods, pressure on coccyx, lying down for extended time. - Relieving Factors: Standing, avoiding direct pressure. - Functional Interferences: Difficulty arising from seated positions, necessity to push herself up, noted discomfort from lying down, sleep disturbance on a sofa. - Affect: The patient did not report significant mood or psychological impacts from the coccygeal pain in the conversation. - Analgesia: Current use of Tylenol and ibuprofen?neither providing adequate relief. Medications include gabapentin and baclofen. Lidocaine patches were utilized without benefit. - Adverse Effects: None reported from current regimen. - Activities of Daily Living: Impacts ability to sit for extended periods; disrupts rest when lying on soft support like a sofa. - Aberrant Drug Related Behaviors: None reported; patient self-medicates ibuprofen beyond typical [id number] dosages without augmentation of relief or concern described. [facility] Medical History Dermatitis Gestational diabetes mellitus Allergic urticaria Iron deficiency Seronegative arthritis History of PCOS Arthralgia Mass of finger Surgical History S/P panniculectomy Umbilical hernia History of tubal ligation H/O gastric bypass Family History Mother Thyroid cancer Hypertension Hx of cardiac pacemaker Social History Household Members: Family Housing: House Are you a primary director day care center to a significant other at home: No Do you presently have visiting nurse or other home services: No 75 years or older and lives alone: No Alcohol intake: current Alcohol intake frequency: does not drink Patient Tobacco Use Status: Never used Tobacco e-Cigarette/Vaping Use: Never Used Review of Systems Const Details: - Musculoskeletal: Reports persistent low back pain, coccygeal pain exacerbated by sitting and lying down; Denies radiation of pain to legs or other extremities. Physical Exam Vital Signs: Last Vital Signs Pulse 68 10/31/24 08:50 BP 126/68 10/31/24 08:50 Pulse Ox 98 10/31/24 08:50 Oxygen Delivery Method Room Air 10/31/24 08:50 BMI result Body Mass Index 31.1 General: awake, alert, oriented. Answers questions appropriately. Fully engaged in examination. Skin: warm, dry, intact HEENT: Normocephalic. Hearing intact. Cardiac: External chest normal in appearance. Respiratory: No cough, audible wheezing or stridor. Abdomen: without gross distension. MS: No obvious swelling or deformities. Able to transition from sit to stand unassisted. Ambulates with bilaterally normal heel strike and toe off Nontender over midline lumbar vertebrae and lumbar paraspinal muscles SLR negative bilaterally No tenderness over bilateral PSIS Tenderness noted directly over coccyx upon palpation. Neurological: Oriented to person, place, time and situation. Thought process intact. No gait abnormalities appreciated. Psychiatric: Appropriate mood and affect. Good judgment and insight. Results Reviewed Results Reviewed: 09/15/24 XR LS Findings: Normal alignment. Very mild dextrocurvature. No acute fractures or dislocation. No significant degenerative change. IMPRESSION: No acute findings. 09/15/24 XR SIJ Findings No acute fractures. There are tiny bilateral sacroiliac joint osteophytes. No joint space loss, erosive change or sclerosis. 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 Assessment & Plan Assessment & Plan (1) Coccydynia: Code(s): M53.3 - Sacrococcygeal disorders, not elsewhere classified Category: Medical Plan For the coccydynia, the plan is to attempt securing insurance approval for a local injection targeting the ganglion impar. Given the patient?s poor response to previous analgesics and pain management strategies, such injections are considered appropriate based on her reported symptoms and previous post-surgical onset. Pre-procedural measures such as Ativan may be considered to address anxiety due to the nature of this site-specific intervention. We discussed the likelihood of coccydynia, with a plausible scenario of coccygeal nerve involvement due to its localization and symptomatology. I explained to the patient the merits of pursuing a ganglion impar block injection to mitigate her symptoms. The potential benefit of targeted nerve injection, balanced against the unlikely utility of additional physical therapy, was outlined thoroughly. I clarified the logistics involving insurance approval and scheduling, assuring procedures would be conducted under optimal precision standards for patient comfort. The patient expressed understanding of the treatment concept and procedural process. Additionally, plans to alleviate any anxiety were considered via Ativan administration pre-procedure. Patient consented to the discussed plan. Will schedule for fluoroscopy guided ganglion impar block with local anesthetic. Patient will be sent Ativan for the injection to help with preprocedure anxiety. Patient was informed and verbally consented to the use of an ambient scribe for clinic note documentation during this visit. Coding Level of Care Code New Pt Level 4 (55953) Complex EM visit Add On G2211 Diagnoses Coccydynia M53.3
--- OUTSIDE RECORDS SUMMARY | 2024-10-31 08:46 | XMS_ITS | Clinical Summary ---
Author Organization [employer] Address [address] [facility] 7t [place] [address] Care Team Providers Care Information Technology Officer Name Role Phone Ginger Medel MD Primary Care Provider +1- [phone] David Miller Unavailable Unavailable Allergies Active Allergy [...] -eye care facilitated by Dr bree Falcon dental ruby is in [facility] proxy given and filled Assessment & Plan (12/24/2023 9:18 AM EDT): -next physical exam due after 12/23/2024 -eye care facilitated by Dr bree Falcon -dental ruby is in [facility] proxy given and filled 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 Continue current medications: Trazodone 150 mg at bedtime, Abilify 10 mg daily, Venlafaxine 150 mg daily, Clonidine 0.1 mg BID, and Hydroxyzine 10 mg prn anxiety. She also takes Gabapentin 400 mg TID per Chip Crusher Operator. She has discontinued with her therapist. May request new referral in the future if interested. Since this provider will be retiring, patient is now referred back to PCP for further medication management. Any issues or concerns, call [facility]. All her questions were answered and I have wished her well. She agrees with the plan. Assessment & Plan (10/18/2023 1:53 PM EDT): Generally doing OK. Continue current medications: Trazodone 150 mg at bedtime, Abilify 10 mg daily, Venlafaxine 150 mg daily, Clonidine 0.1 mg BID, and Hydroxyzine 10 mg prn anxiety. She also takes Gabapentin 400 mg TID per Chip Crusher Operator. She will F/u with her therapist. F/U [...] also takes Gabapentin 400 mg TID per Chip Crusher Operator. She will F/u with Integrated clinician as [...] also takes Gabapentin 400 mg TID per Chip Crusher Operator. She will F/u with Integrated clinician. On [...] -Doing well. 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 Holcomb 08/2024 - Cosentyx 150mg SC every 4 weeks - Gabapentin 400mg tid - Check L/S spine and SI joint XR - Follow up labs Assessment & Plan (12/24/2023 8:19 AM EDT): - Pt followed by rheumatology Lilo Aguirre [...] -Distant hx of dysplasia of cervix. Per [facility], last pap was normal 11/2021. Assessment & Plan (12/24/2023 8:58 AM EDT): -[facility]. Assessment & Plan (10/24/2022 7:15 AM EDT): -Distant hx of dysplasia of cervix. Per [facility] office, last pap was normal 11/2021. We [...] (10/24/2022 7:17 AM EDT): -We called her BRUSH WASHER, last PAP was 11/2021, NILM HPV negative. [...] Health Integration Plan Internal Follow up with [facility] Assessment & Plan (05/01/2023 9:53 [...] also takes Gabapentin 400 mg TID per Chip Crusher Operator. F/U with me in 6-8 weeks. She [...] also takes Gabapentin 400 mg TID per Chip Crusher Operator. F/U with me in 4-6 weeks. She [...] also takes Gabapentin 400 mg TID per Chip Crusher Operator. F/U with me in 2-3 months. She [...] on any medication. Joint pain 07/02/2013 10/24/2022 Encounters Date Type Department Care Team Description 10/14/2024 Telephone [facility]INE [address] [place] [phone] Ginger Medel MD December Recalls 10/14/2024 Travel 10/03/2024 Telephone [facility] [address] [place] [address] Ginger Medel MD December Recalls 09/13/2024 Orders Only [facility] External Provider, [facility] 08/29/2024 Population Health Risk Score [facility] (C[facility]) Department [address] [place] [phone] Provider, Population Health Generic from Last 3 Months Immunizations Immunization Administration Dates Next Due Hep A / [...] 12/24/2023 8:58 AM EDT Plan of Treatment Upcoming Encounters Date Type Department Care Team (Late st Contact Info) Description 12/24/2024 10:30 AM EDT Office Visit [facility]INE [address] [place] [address] Ginger Medel MD [address] [place] [address] Health Maintenance Due Date Last Done Comments COVID-19 Vaccine ( season) 2024 04/19/2021, 08/21/2020, 07/31/2020 Mammogram 05/04/2024 05/04/2022 DTaP/Tdap/Td Vaccines (4 - [...] (6 to 49) Years) Completed 12/24/2023, 06/14/2006 Influenza Vaccine Completed 04/13/2024, , 04/06/2022, Additional history exists HIB Vaccines Aged Out No longer eligi ble based on patient's age to complete this topic HPV Vaccines Aged Out No longer eligi ble based on patient's age to complete this topic IPV Vaccines Aged Out No longer eligi ble based on patient's age to complete this topic Meningococcal B Vaccine Aged Out No l onger eligible based on patient's age to complete [...] Procedure Name Priority Date/Time Associated Diagnosis Comments XR LUMBAR SPINE COMPLETE 4+ VIEWS Routine 09/15/2024 3:56 PM EDT XR SACROILIAC JOINTS 3+ VIEWS Routine 09/15/2024 3:17 PM EDT HEPATITIS C AB W/REFL TO HCV RNA, [...] (BMI) of 35.0 to 35.9 in adult ([facility]) MAMMOGRAM GENERIC Routine 05/04/2022 9:5 3 AM EST PAP + HPV30 NEG (AGE 30+) Routine 11/16/2021 12:00 AM EDT from Last 3 Months or Most Recently Relevant to Health Maintenance Results * XR Lumbar Spine Complete 4+ Views (09/15/2024 3:56 PM EDT) Anatomical Region Laterality Modality Spine, L-spine Radiographic Kimberly ging 09/15/2024 3:56 PM EDT Narrative 09/15/2024 3:57 PM EDT ? [facility] ?[address] ?[place] [address] ?XRay Report ? Signed ? Patient: Ruchi Cherry ?MR#: [id number] ? : 1985 ?Acct:[id number] ? Age/Sex: 38 / F ?ADM Date: 09/13/24 ? Loc: HO.LAB ? Attending Dr: Eli Holcomb MD ? Ordering Physician: Eli Holcomb MD ?? Date of Service: 09/13/24 ?? Procedure(s): XR lumbar spine 4V min ?? Accession Number(s): [id number] ? cc: Eli Holcomb MD; Ginger Medel MD ? CLINICAL HISTORY: L40.50 - Arthropathic psoriasis, unspecified ? 5 views lumbar spine ? Comparison: None ? Findings: ?? Normal alignment. Very mild dextrocurvature. ?? No acute fractures or dislocation. ?? No significant degenerative change. ? IMPRESSION: ?? No acute findings. ? This document has been electronically signed by: Ariela Pratt MD on ?? 09/15/2024 15:56:50 ? Dictated By: ?Ariela Pratt MD ? Signed By: ?<Electronically signed by Ariela Pratt MD in OV> ? 09/15/247 ? DD/ ? TD/TT: 09/15/246 ? School Adjustment Counselor: ? Procedure Note Carlos, Image - 09/15/[address] [address] XRay Report Signed Patient: Ruchi Cherry MMR#: [id number] : 1985Acct:[id number] Age/Sex: 38 / FADM Date: 09/13/24 Loc: HO.LAB Attending Dr: Eli Holcomb MD Ordering Physician: Eli Holcomb MD Date of Service: 09/13/24 Procedure(s): XR lumbar spine 4V min Accession Number(s): [id number] cc: Eli Holcomb MD; Ginger Medel MD CLINICAL HISTORY: L40.50 - Arthropathic psoriasis, unspecified 5 views lumbar spine Comparison: None Findings: Normal alignment. Very mild dextrocurvature. No acute fractures or dislocation. No significant degenerative change. IMPRESSION: No acute findings. This document has been electronically signed by: Ariela Pratt MD on 09/15/2024 15:56:50 Dictated By: Ariela Pratt MD Signed By: <Electronically signed by Ariela Pratt MD in OV> 09/15/24 1557 DD/ 1556 TD/TT: 09/15/24 1556 School Adjustment Counselor: us [facility] External Provider IMG XR PROCEDURES Final Result * XR Sacroiliac Joints 3+ Views (09/15/2024 3:17 PM EDT) Anatomical Region Laterality Modality Sacroiliac joint, Pelvis Radiogr aphic Imaging 09/15/2024 3:17 PM EDT Narrative 09/15/2024 3:18 PM EDT ? [facility] ?[address] ?[place] [address] ?XRay Report ? Signed ? Patient: Cherry,Ruchi M ?MR#: [id number] ? : 1985 ?Acct:[id number] ? Age/Sex: 38 / F ?ADM Date: 03/29/25 ? Loc: HO.LAB ? Attending Dr: Eli Holcomb MD ? Ordering Physician: Eli Holcomb MD ?? Date of Service: 09/13/24 ?? Procedure(s): XR sacroiliac joint min 3V ?? Accession Number(s): [id number] ? cc: Eli Holcomb MD; Ginger Medel MD ? CLINICAL HISTORY: L40.50 - Arthropathic psoriasis, unspecified ? 3 views sacroiliac joints ? Comparison: None ? Findings ?? No acute fractures. ?? There are tiny bilateral sacroiliac joint osteophytes. No joint space ?? loss, erosive change or sclerosis. ? IMPRESSION: ?? 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 ? This document has been electronically signed by: Ariela Pratt MD on ?? 09/15/2024 15:17:09 ? Dictated By: ?Ariela Pratt MD ? Signed By: ?<Electronically signed by Ariela Pratt MD in OV> ? 09/15/24 1518 ? DD/ 1517 ? TD/TT: 09/15/241516 ? School Adjustment Counselor: ? Procedure Note Donbraydonter, Image - 09/15/[address] [address] XRay Report Signed Patient: Ruchi Cherry MMR#: [id number] : 1985Acct:[id number] Age/Sex: 38 / FADM Date: 09/13/24 Loc: HO.LAB Attending Dr: Eli Holcomb MD Ordering Physician: Eli Holcomb MD Date of Service: 09/13/24 Procedure(s): XR sacroiliac joint min 3V Accession Number(s): [id number] cc: Eli Holcomb MD; Ginger Medel MD CLINICAL HISTORY: L40.50 - Arthropathic psoriasis, unspecified 3 views sacroiliac joints Comparison: None Findings No acute fractures. There are tiny bilateral sacroiliac joint osteophytes. No joint space loss, erosive change or sclerosis. 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 This document has been electronically signed by: Ariela Pratt MD on 09/15/2024 15:17:09 Dictated By: Ariela Pratt MD Signed By: <Electronically signed by Ariela Pratt MD in OV> 09/15/24 1518 DD/ 1517 TD/TT: 09/15/24 1517 School Adjustment Counselor: [facility] External Provider IMG XR PROCEDURES Final Result * Hepatitis C Antibody with Reflex to HCV, RNA, Quantitative, Real-Time PCR (10/27/2022 9:47 AM EDT) Pathologist [facility] Hepatitis C Antibody NON-REACT THALIA NON-REACT THALIA [employer] Index 0.11 <1.00 [employer] Comment: HCV antibody was non-reactive. There is no laboratory evidence of HCV infection. In most cases, no further action is required. However, if recent HCV exposure is suspected, a test for HCV RNA (test code 96286) is suggested. For additional information please refer to http://education.Voxli/faq/XUS92c6 (This link is being provided for informational/ educational purposes only.) Blood Venous blood specimen / Unknown 10/27/2022 9:47 AM EDT 10/27/2022 9:47 AM EDT Narrative [facility] - 11/02/2022 2:24 PM EDT FASTING:YES FASTING: YES Result [facility] Ginger Medel MD LAB BLOOD ORDERABLES Final Result [facility] [address], [place] [address] [employer] [address] [place] [address] * HIV-1/2 Antigen and Antibodies, Fourth Generation, with Reflexes (10/27/2022 9:47 AM EDT) [facility] HIV Antigen/Antibody, 4th Generation NON-REAC TIVE NON-REAC TIVE [employer] Comment: HIV-1 antigen and HIV-1/HIV-2 antibodies were [...] ?? For additional information please refer to http://MediaSpike.Voxli/faq/RKS417 (This link is being provided for informational/ educational purposes only.) The performance of this assay has not been clinically validated in patients less than 2 years old. Blood Venous blood specimen / Unknown 10/27/2022 9:47 AM EDT 10/27/2022 9:47 AM EDT Narrative [facility] - 11/02/2022 2:24 PM EDT FASTING:YES FASTING: YES Ginger Medel MD LAB BLOOD ORDERABLES Final Result [facility] [address], [place] [address] [employer] [address] [place] [address] * Lipid Panel, Standard (10/27/2022 9:47 AM EDT) [facility] Signature Cholesterol, Total 176 <200 mg/dL [employer] HDL Cholesterol 74 > OR = 50 mg/dL [employer] Triglycerides 57 <150 mg/dL [employer] LDL Cholesterol 88 mg/dL (calc) [employer] Comment: Reference range: <100 Desirable range <100 mg/dL for primary prevention; ?? <70 mg/dL for patients with CHD or diabetic patients with > or = 2 CHD risk factors. LDL-C is now calculated using the Kathleen calculation, which is a validated novel method providing better accuracy than the Friedewald equation in the estimation of LDL-C. Filemon CHANCE et al. TATYANA. 2013;310(19): 8342-8311 (http://education.Hoodinn/faq/WKZ390) Chol/HDLC Ratio 2.4 <5.0 (calc) [employer] Non-HDL Cholesterol 102 <130 mg/dL (calc) [employer] Comment: For patients with diabetes plus 1 major ASCVD risk factor, treating to a non-HDL-C goal of <100 mg/dL (LDL-C of <70 mg/dL) is considered a therapeutic option. Blood Venous blood specimen / Unknown 10/27/2022 9:47 AM EDT 10/27/2022 9:47 AM EDT Narrative [facility] - 11/02/2022 2:24 PM EDT FASTING:YES FASTING: YES Ginger Medel MD LAB BLOOD ORDERABLES Final Result Performing Organization Address [facility] de Phone Number [facility] [address], [place] [address] [employer] [address] [place] [address] * Mammography Report 1 (05/04/2022 9:53 AM EST) Anatomical Region Laterality Modality Breast Bilateral Mammography 05/04/2022 9:53 AM EST Narrative 05/04/2022 10:41 AM EST Refer to the Notes tab for result details [facility] Procedure: Mammography Report 1 Procedure Note Provider, MD Kaila - 09/10/2022 Refer to the Notes tab for result details [facility] Procedure: Mammography Report 1 Ginger Medel MD IMG BI PROCEDURES Final Re sult * PAP + HPV30 neg (age 30+) (11/16/2021 12:00 AM EDT) Kaila Provider LAB PATHOLOGY ORDERABLES Final Result IMAGING from Last 3 Months or Most Recently Relevant to Health Maintenance Insurance C3 Care Teams Information Technology Officer Relationship Specialty Start Date End Date [place], MD Ginger [address] [place] [address] PCP - General Family Medicine 06/18/18 David Miller FNP [address] [place] [phone] Nurse Practitioner Family Medicine 05/01/23 Eli Holcomb MD Rheumatology 09/01/24
--- OUTSIDE RECORDS SUMMARY | 2024-10-31 08:46 | XMS_ITS | Encounter Summary ---
Author Organization [employer] Address [address] [facility] 7t [place] [address] Care Team Providers Care Music Publicist Name Role Phone Ginger Medel MD Primary Care Provider +1- [phone] David Miller Unavailable Unavailable Encounter Details Date Type Department Care Team (Late st Contact Info) Description 07/25/2022 Abstract [facility]INE [address] [place] [address] [phone] Ginger Medel MD [address] [place] [address] [phone] Social History Tobacco Use Types Packs/Day Years Used Date Smoking Tobacco: Never Assessed Comments Unknown Sex and Gender Information Value Date Recorded Sex Assigned at Female 04/17/2022 10:18 AM EDT Legal Sex Female 10:18 AM EDT Gender Identity Female 04/17/2022 10:18 AM EDT Sexual Orientation Straight 04/17/2022 10 :18 AM EDT documented as of this encounter Plan of Treatment Upcoming Encounters Date Type Department Care Team (Late st Contact Info) Description 12/24/2024 10:30 AM EDT Office Visit [facility] [address] [place] [address] [phone] Ginger Medel MD [address] [place] [address] [phone] documented as of this encounter Procedures Procedure [...] documented as of this encounter Care Teams Music Publicist Relationship Specialty Start Date End Date Ginger Medel MD [address] [place] [address] PCP - General Family Medicine 06/18/18 David Miller FNP [address] [place] [address] Nurse Practitioner Family Medicine 05/01/23 Eli Holcomb MD Rheumatology 09/01/24 documented as of this encounter
--- OUTSIDE RECORDS SUMMARY | 2024-10-31 08:46 | XMS_ITS | Encounter Summary ---
Author Organization [facility] Address [address] [place] [address] Care Team Providers Care Timber Harvester Operator Name Role Phone Ginger Medel MD Primary Care Provider +1- [phone] Reason for Visit * Reason Onset Date Comments Prior auth 10/02/2024 Prior Auth Encounter Details Date Type Department Care Team (Late Contact Info) Description 10/02/2024 Telephone Bariatric Surgery - [place] 175 [facility] [address] [place] [phone] Cristhian Vaz MD 175 [facility] [address] [place] [address] Prior auth (Prior Auth) Social History Tobacco Use Types Packs/Day Years Used Date Smoking Tobacco: Never Smokeless Tobacco: Never Alcohol Use Standard Drinks/Week Comments No 0 (1 standard drink = 0.6 oz pur e alcohol) Comments Unknown Sex and Gender Information Value Date Recorded Sex Assigned at Not on file Legal Sex Female 9:05 AM EST Gender Identity Not on file Sexual Orientation Not on file documented as of this encounter Progress Notes * Florinda Cardenas - 10/02/2024 2:34 PM EDT Patient needs a PA documented in this encounter Plan of Treatment Upcoming Encounters Date Type Department Care Team (Late Contact Info) Description 11/05/2024 11:00 AM EDT Consult Plastic & Reconstructive Surgery [facility] [address] [place] [address] Yanick Lake, DO 300 [facility] [address] [place] [address] 11/14/2024 10:15 AM EDT [facility]oint[facility] [address] [phone] 11/24/2024 9:45 AM EDT Office Visit Obstetrics & Gynecology - [address] [phone] Charlene Amos CNM [address] [place] [phone] 01/28/2025 10:30 AM EDT Nutrition Bariatric Surgery - [address] [phone] Karine Rogers, RILEY [address] [phone] 02/03/2025 9:00 AM EDT Office Visit Bariatric Surgery - [address] [phone] Cristhian Vaz MD [address] [phone] documented as of this encounter Visit Diagnoses Not on filedocumented in this encounter Care Teams Timber Harvester Operator Relationship Specialty Start Date End Date Ginger Medel MD [address] [place] [phone] PCP - General Internal Medicine 10/22/14 documented as of this encounter
--- OUTSIDE RECORDS SUMMARY | 2024-10-31 08:46 | XMS_ITS | Encounter Summary ---
Author Organization [employer] Address [address] [facility] 7t [place] [address] Care Team Providers Care Lumber Chain Offbearer Name Role Phone Ginger Medel MD Primary Care Provider +1- [phone] David Miller Unavailable Unavailable Reason for Visit * Reason Comments Med Refill Encounter Details Date Type Department Care Team (Late st Contact Info) Description 07/11/2023 Refill [facility] [address] [place] [address] David Miller FNP Anxious depression Social History [...] AM EDT documented as of this encounter Functional Status * Over the past 2 weeks, how often have you been bothered by any of the following problems? Question Answer Date of Assessment Author Patient Health Questionnaire -2 Score 3 07/12/2023 9:28 AM Sunita Bro MA * If you checked off any problems on this questionnaire so far, Question Answer Date of Assessment Author How difficult have these problems made it for you to do your work, take care of things at home, or get along with other people? Very difficult 07/12/2023 9:28 AM Sunita Bro MA * Over the past 2 weeks, how often have you been bothered by any of the following problems? Question Answer Date of Assessment Author Little interest or pleasure in doing things Several days 07/12/2023 9:28 AM Norma Bro MA Feeling down, depressed, or hopeless More than half the days 07/12/2023 9:28 AM Norma Bro MA Trouble falling or staying asleep, or sleeping too much Several days 07/12/2023 9:28 AM Norma Bro MA Feeling tired or having little energy Not at all 07/12/2023 9:28 AM Norma Bro MA Poor appetite or overeating Not at all 07/12/2023 9:28 AM Norma Bro MA Feeling bad about yourself - or that you are a failure or have let yourself or your family down Not at all 07/12/2023 9:28 AM Norma Bro MA Trouble concentrating on things, such as reading the newspaper or watching television Nearly every day 07/12/2023 9:28 AM Norma Bro MA Moving or speaking so slowly that other people could have noticed? Or the opposite - being so fidgety or restless that you have been moving around a lot more than usual. Several days 07/12/2023 9:28 AM Norma Bro MA Thoughts that you would be better off or hurting yourself in some way Not at all 07/12/2023 9:28 AM Norma Bro MA Patient Health Questionnaire-9 Score 8 07/12/2023 9:28 AM Norma Bro MA documented as of this encounter Plan of Treatment Upcoming Encounters Date Type Department Care Team (Late st Contact Info) Description 12/24/2024 10:30 AM EDT Office Visit [facility] [address] [place] [address] Ginger Medel MD [address] [place] [address] documented as of this encounter Visit Diagnoses Diagnosis Anxious depression documented in this encounter Additional Health Concerns Assessment Noted Time PHQ-9 Depression Total Score: 15 024 9:59 AM EST documented as of this encounter Care Teams Lumber Chain Offbearer Relationship Specialty Start Date End Date Ginger Medel MD [address] [place] [phone] PCP - General Family Medicine 06/18/18 David Miller FNP [address] [place] [address] Nurse Practitioner Family Medicine 05/01/23 Eli Holcomb MD Rheumatology 09/01/24 documented as of this encounter
--- OUTSIDE RECORDS SUMMARY | 2024-10-31 08:46 | XMS_ITS | Clinical Summary ---
Author Organization [address] Address [address] [place] [address] Phone Care Team Providers Care Seismic Computer Name Role Phone Ginger Medel MD Primary Care Provider +1- [phone] Allergies Active Allergy Reactions Criticality Noted Date [...] Active drospirenone-eth inyl estradiol-levome folate calcium (SANTY LNIO) 3-0.02-0.451 mg (24) (4) per tablet Take [...] (600 mg total) by mouth. 10/26/19 Active D0-qbtzuov-xifb- W0-ecoeah-WI 919-2-99-5-1.5 mg tablet Take 1 tablet by mouth 1 (one) time each day. 08/23/19 24 Active medroxyprogester one acetate (PROVERA ORAL) Take by mouth. Active multivitamin (MULTIPLE VITAMINS ORAL) Take 1 tablet by mouth 1 (one) time each day. 08/23/19 Active ONDANSETRON HCL ORAL Take 4 mg by mouth. 10/26/19 Active VITAMIN A ORAL Take 1 capsule by mouth. 08/29/19 24 Active wheat dextrin 3 gram/3.8 gram powder [...] 90 capsule 2 06/26/19 25 025 Active FeroSuL 325 mg (65 mg iron) tabletIndication s:Vitamin D deficiency TAKE 1 TABLET (325 MG TOTAL) BY MOUTH 1 (ONE) TIME EACH DAY. DO NOT CRUSH, CHEW, OR SPLIT. 30 tablet 08/30/19 25 Active topiramate (TOPAMAX) 50 mg tabletIndication s:Class 1 obesity due to excess calories with body mass index (BMI) of 32.0 to 32.9 in adult, unspecified whether serious comorbidity present TAKE 1 TABLET (50 MG TOTAL) BY MOUTH AT BEDTIME. 30 tablet 09/23/19 25 025 Active tirzepatide, weight loss, (Zepbound) 5 mg/0.5 mL solution Inject 5 mg under the skin every 7 (seven) days. 2 mL 10/30/19 25 Active tirzepatide, weight loss, (Zepbound) 2.5 mg/0.5 mL injection Inject 0.5 mL (2.5 mg total) under the skin every 7 (seven) days for 28 days. 2 mL 09/30/19 25 025 Discontinued Active Problems Problem Noted Date Diagnosed Date Class 1 obesity with body ma ss index (BMI) of 32.0 to 32.9 in adult 10/14/2024 Encounters Date Type Department Care Team Description 10/14/2024 2:00 PM EDT Telemedicine Bariatric Surgery [address] [phone] Class 1 obesity with body mass index (BMI) of 32.0 to 32.9 in adult, unspecified obesity type, unspecified whether serious comorbidity present (Primary Dx) 10/02/2024 Telephone Bariatric Surgery [address] [phone] Cristhian Vaz MD Prior auth (Prior Auth) 09/25/2024 10:00 AM EDT Office Visit Bariatric Surgery [address] [phone] Cristhian Vaz MD Class 1 obesity due to excess calories with body mass index (BMI) of 31.0 to 31.9 in adult, unspecified whether serious comorbidity present (Primary Dx) from Last 3 Months Surgical History Surgery Date Site/Laterality Comments GASTRIC BYPASS 08/2008 PROCEDURE: GASTRIC BYPASS FOR OBESIT; COMMENT: Liz-en-Y and small bowel resection TUBAL LIGATION 01/27/15 PROCEDURE: HISTORICAL TUBAL LIGATION; COMMENT: [facility] GASTRIC BYPASS 11/11/2021 PROCEDURE: [place] GASTRIC RSTCV W/BYP W/SM INT RCNSTJ LIMIT ABSRPJ Medical History Medical History Date Comments H/O bariatric surgery 2016 DX:H/O bar iatric surgery; COMMENT: 08/2011 Liz-en-Y and small bowel resection RA (rheumatoid arthritis) (C MS/HCC V24, CMS/HCC V28) 03/19/2018 DX:RA (rheumatoid arthritis) (HCC) Asthma 11/17/2014 DX:Asthma Anxiety DX:Anxiety Depression 03/19/2018 DX:Depression PCOS (polycystic ovarian syndrome) DX:PCOS (polycystic ovarian syndrome) Vitamin D deficiency 09/22/2021 DX:Vitamin D deficiency Class 3 severe obesity due t o excess calories with serious comorbidity and body mass index (BMI) of 45.0 to 49.9 in adult ([facility] V24, [facility] V28) 03/06/2019 DX:Class 3 severe obesity due to excess calories with serious comorbidity and body mass index (BMI) of 45.0 to 49.9 in adult ([facility]) Iron deficiency anemia 09/22/2021 DX:Iron d eficiency [...] Sign Reading Time Taken Comments Blood Pressure 117/73 09/25/2024 9:50 AM EDT Pulse 62 09/25/2024 9:50 AM EDT Temperature 36.6 ??C (97.8 ??F) 09/25/2024 9:50 AM ED T Respiratory Rate - - Oxygen Saturation - - Inhaled Oxygen Concentration - - Weight 83.9 kg (185 lb) 10/24/2024 10:40 AM EDT Height 160 cm (5' 3 ) 10/24/2024 10:40 AM EDT Body Mass Index 32.77 10/24/2024 10:40 AM EDT Plan of Treatment Upcoming Encounters Date Type Department Care Team (Late st Contact Info) Description 11/05/2024 11:00 AM EDT Consult Plastic & Reconstructive Surgery - [place] [address] [facility] [address] [place] [phone] Yanick Lake, DO [address] [address] 11/14/2024 10:15 AM EDT [facility]oint[facility] [address] [phone] 11/24/2024 9:45 AM EDT Office Visit Obstetrics & Gynecology - [address] [phone] Charlene Gant CNM 175 [place] [phone] 01/28/2025 10:30 AM EDT Nutrition Bariatric Surgery - [address] [phone] Karine Rogers, RILEY [address] [phone] 02/03/2025 9:00 AM EDT Office Visit Bariatric Surgery [address] [phone] Cristhian Vaz MD [address] [phone] Health Maintenance Due Date Last Done Comments Social Influencers of Health Screening 05/27/2022 COVID-19 Vaccine ( season) 2024 04/19/2021, 08/21/2020, 07/31/2020 DTaP,Tdap,and Td [...] Procedure Name Priority Date/Time Associated Diagnosis Comments DEISI SCREENING DIGITAL Routine 11/08/2023 3:48 PM EDT Encounter for screening mammogram for malignant neoplasm of breast PAP SMEAR Routine 12/12/2021 from Last 3 Months or Most Recently Relevant to Health Maintenance Results * DEISI SCREENING DIGITAL (11/08/2023 3:48 PM EDT) Anatomical Region Laterality Modality Mammography 11/07/2023 9:10 AM EDT Narrative 11/08/2023 3:48 PM EDT [facility] Diagnostic Imaging Department [address] [place] [address] Patient: ??PARRISH CHERRY ?/Age/Sex: 1985 - 38 - F Unit#: ??[id number] ? Location/Status: ??SPDIMAM/REG CLI ? Mnemonic/Ordering Site: ??DIGSC/SPMAM Ordering Physician: ??CHARLENE GANT CNM Deisi Screening Digital - 11/07/23 - 940 Report Status:Signed EXAM: [facility] Screening Digital EXAM DATE AND TIME: 11/07/2023 9:41 AM HISTORY: ??Screening. 100 pound weight loss since 2021 following bariatric surgery per technologist notes. COMPARISON: ??05/04/22 TECHNIQUE: Bilateral digital breast tomosynthesis was performed in the CC and MLO projections. Computer aided detection with Videofropper 3D 3.1 was em ployed. TISSUE DENSITY: [...] MD Dic Date/Time: ??11/08/23 1547 Sign date/Time: ??11/08/23 1548 Procedure Note Alessia Cueva MD - 02/04/2024 [facility] Diagnostic Imaging Department [address] [place] [address] Patient: CHERRYPARRISH LUCERO./Age/Sex: 1985 - 38 - F Unit#: [id number] Location/Status: SPDIMAM/REG CLI Mnemonic/Ordering Site: DIGAR/[facility] Ordering Physician: CHARLENE GANT CNM [facility] Screening Digital - 11/07/23 - 0941 Report Status:Signed EXAM: [facility] Screening Digital EXAM DATE AND TIME: 11/07/2023 9:41 AM HISTORY: Screening. 100 pound weight loss since 2021 followingbariatric surgery per technologist notes. COMPARISON: 05/04/22 TECHNIQUE: Bilateral digital breast tomosynthesis was performed in the CCand MLO projections. Computer aided detection with Videofropper 3D 3.1 wasem ployed. TISSUE DENSITY: b. [...] Signed by: ALESSIA CUEVA MD Dic Date/Time: 11/08/231546 Sign date/Time: 11/08/231547 Charlene Gant CNM IMG BI PROCEDURES Final Result * Pap smear (12/12/2021) 12/12/2021 Narrative HISTORICAL TESTING LAB RESULTING AGENCY - 12/20/2021 9:30 AM EDT [id number] THINPREP PAP, IMAGED: NEGATIVE FOR SQUAMOUS INTRAEPITHELIAL LESION AND MALIGNANCY . HANNAH BENAVIDES(ASCP) (CASE ELECTRONICALLY SIGNED 12 18 2021) RESULT OF APTIMA HIGH RISK HPV ASSAY: HIGH RISK HPV: ??NEGATIVE (SEROTYPES 16,18,31,33,35,39,45,51,52,56,58,59,66,68) COMPLETED ON 2021-12-14 ADEQUACY: SATISFACTORY ENDOCERVICAL/TRANSFORMATION ZONE COMPONENT PRESENT. SOURCE: THINPREP PAP HPV ANY DX: ??REFLEX 16 AND 18, CERVICAL, IMAGED CLINICAL INFORMATION: HPV ANY DIAGNOSIS. HORMONES, [Z01.419] us Charlene Gant CNM LAB CYTOLOGY ORDERABLES Final R esult HISTORICAL TESTING LAB RESULTING AGENCY from Last 3 Months or Most Recently Relevant to Health Maintenance Insurance MEDICAID - [place] Care Teams Seismic Computer Relationship Specialty Start Date End Date Sheridan, MD Ginger [address] [place] [phone] PCP - General Internal Medicine 10/22/14
[2024-10-31 08:50] VITALS: BP 126/68; PULSE 68; O2SAT 98; BMI 31.1
== END 2024-10-31 09:20 | disposition home or self-care (01) ==
PROVIDERS: PCP Family Medicine; Visit Provider Registered Nurse Emergency
DX: M53.3 Sacrococcygeal disorders, not elsewhere classified (principal)
CPT/HCPCS: 99204

== ENCOUNTER → 2024-10-31 08:34 | Outpatient (BNVA) | payer MEDICAID, SELFPAY | PROVIDERS: PCP Family Medicine; Visit Provider Registered Nurse Emergency | DX: M53.3 Sacrococcygeal disorders, not elsewhere classified (principal) | CPT/HCPCS: 99212 ==

== ENCOUNTER 2025-01-02 10:17 | Outpatient (REF) | payer MEDICAID, SELFPAY ==
[2025-01-02 10:33] LABS: MANUAL DIFF FLAG NO
--- OUTSIDE RECORDS SUMMARY | 2025-01-02 10:37 | XMS_ITS | Encounter Summary ---
Author Organization [facility] Address [address] [place] [address] Care Team Providers Care Claims Vice President Name Role Phone Ginger Medel MD Primary Care Provider +1- [phone] Reason for Visit * Reason Onset Date Comments Med Refill 12/29/2024 Zepbound w/titra tion Encounter Details Date Type Department Care Team (Late Contact Info) Description 12/29/2024 Telephone Bariatric Surgery - [place] [address] [phone] Cristhian Vaz MD [address] [address] Med Refill (Zepbound w/titration ) Social History Tobacco Use Types Packs/Day Years Used Date Smoking Tobacco: Never Smokeless Tobacco: Never Alcohol Use Standard Drinks/Week Comments No 0 (1 standard drink = 0.6 oz pur e alcohol) Comments No Sex and Gender Information Value Date Recorded Sex Assigned at Not on file Legal Sex Female 9:05 AM EST Gender Identity Not on file Sexual Orientation Not on file documented as of this encounter Progress Notes * Abeba Juarez - 12/29/2024 10:28 AM EDT Patient did well on Zepbound 7.5 mgs and would like a refill with titration. If appropriate, please send script for Zepbound 10 mgs to their pharmacy. The patient does have a follow up in 01/28/2025 documented in this encounter Plan of Treatment Upcoming Encounters Date Type Department Care Team (Late Contact Info) Description 02/03/2025 9:00 AM EDT Office Visit Bariatric Surgery - [place] [address] [phone] Cristhian Vaz MD [address] [phone] 03/20/2025 9:30 AM EDT Telemedicine Bariatric Surgery - [place] [address] [phone] Karine Rogers, RD [address] [phone] Scheduled Procedures Name Priority Associated Diagnoses Date/Ti me BRACHIOPLASTY Skin laxity documented as of this encounter Visit Diagnoses Not on filedocumented in this encounter Care Teams Claims Vice President Relationship Specialty Start Date End Date Ginger Medel MD [address] [place] [phone] PCP - General Internal Medicine 10/22/14 documented as of this encounter
--- OUTSIDE RECORDS SUMMARY | 2025-01-02 10:37 | XMS_ITS | Encounter Summary ---
Author Organization [facility] Address [address] [place] [phone] Phone Care Team Providers Care Armament Mechanic Name Role Phone Lizy, Ginger Torres MD Primary Care [facility] Encounter Details Date Type Department Care Team (Late st Contact Info) Description 11/08/2023 Procedure Pass OR Admitting Dept - Virtual Department [address] [place] [address] Social History Tobacco Use Types Packs/Day Years Used Date Smoking Tobacco: Never Smokeless Tobacco: Never Alcohol Use Standard Drinks/Week Comments Never 0 (1 standard drink = 0.6 oz pur e alcohol) Education Answer Date Recorded Are you interested in more education? Not on alona e 08/29/2023 Are you concerned about learning? Not on file 08/29/2023 No 08/29/2023 No 08/29/2023 Digital Access Answer Date Recorded No 08/29/2023 No 08/29/2023 Reliable internet access at home? Not on file 08/29/2023 Device with a working camera? Not on file Intimate Partner Violence Answer Date R ecorded Are you denied basic needs s uch as food, clothing, or medical care? No 11/08/2023 In the past 12 months have y ou been in a relationship with a person who hurts, threatens, or tries to control you? No 11/08/2023 Are you denied basic needs s uch as food, clothing, or medical care? No 11/08/2023 In the past 12 months have y ou been in a relationship with a person who hurts, threatens, or tries to control you? No 11/08/2023 Comments No Sex and Gender Information Value Date Recorded Sex Assigned at Not on file Legal Sex Female 1:49 PM EST Gender Identity Not on file Sexual Orientation Not on file documented as of this encounter Plan of Treatment Not on file documented as of this encounter Visit Diagnoses Not on filedocumented in this encounter Care Teams Armament Mechanic Relationship Specialty Start Date End Date Lizy, Ginger Torres MD [address] [place] [phone] PCP - General Family Medicine 08/24/23 documented as of this encounter Additional Source Comments The information contained in this document represents components of the legal health record. It is not the complete legal health record.[facility]
--- OUTSIDE RECORDS SUMMARY | 2025-01-02 10:37 | XMS_ITS | Encounter Summary ---
Author Organization [employer] Address [address] [place] [address] Care Team Providers Care Tumbler Machine Operator Name Role Phone Ginger Medel MD Primary Care Provider +1- [phone] David Miller Unavailable Unavailable Cristhian Vaz MD Unavailable Encounter Details Date Type Department Care Team (Late st Contact Info) Description 07/25/2022 Abstract [facility] MEDICINE [address] [place], [place] [phone] Ginger Medel MD [address] [place], [place] [phone] Social History Tobacco Use Types Packs/Day Years [...] documented as of this encounter Care Teams Tumbler Machine Operator Relationship Specialty Start Date End Date Ginger Medel MD [address] [place] [address] PCP - General Family Medicine 06/18/18 David Miller FNP [address] [place] [address] Nurse Practitioner Family Medicine 05/01/23 Cristhian Vaz MD [address] [place] [phone] Bariatrics 12/24/24 Eli Holcomb MD Rheumatology 09/01/24 documented as of this encounter
[2025-01-02 11:14] LABS: Hematocrit 35.5 % (37.0-47.0); Hemoglobin 12.1 g/dl (12.0-16.0); Imm Gran Abs Auto 0.01 X10*3/uL (0.00-0.03); Imm Gran Pct Auto 0.2 % (0.0-0.4); Lymphocytes Absolute Auto 1.3 X10*3/uL (1.2-4.9); Mean Corpuscular HGB Conc 34.1 g/dl (31.0-35.0); Mean Corpuscular Hemoglobin 30.1 pg (27.0-33.0); Mean Corpuscular Volume 88.3 fL (80.0-98.0); NRBC Abs Auto 0.000 X10*3/uL (0.0-0.012); NRBC Pct Auto 0.0 /100WBC (0.0-0.2); Platelet Count 289 X10*3/uL (160-400); Red Blood Count 4.02 X10*6/uL (4.20-5.50); White Blood Count 5.3 X10*3/uL (4.8-10.8)
[2025-01-02 12:12] LABS: Alanine Aminotransferase 13 U/L (0-31); Albumin Level 4.5 g/dL (3.5-5.0); Alkaline Phosphatase 71 U/L (39-117); Anion Gap 10 (12-20); Aspartate Amino Transferase 19 U/L (5-31); Blood Urea Nitrogen 10 mg/dL (9-16); Calcium 9.1 mg/dL (8.4-10.2); Carbon Dioxide 24 mmol/L (22-29); Chloride 110 mmol/L (96-108); Estimated Glomerular Filt Rate > 60; Potassium 4.1 mmol/L (3.3-5.1); Sodium 140 mmol/L (135-145); Total Protein 7.3 g/dL (6.5-8.0)
[2025-01-02 12:38] LABS: HBS Num1 1.32 mIU/mL (0-7.99); HBc Num1 0.09 S/CO (0.00-0.79); HBsAGNum1 0.39 S/CO (0.00-0.99); Hepatitis A Antibody IgM 0.15 Index (0-0.79); Hepatitis B Surface Antigen Negative (Negative); ~HepC Num1 0.07 S/CO (0.00-0.79); ~Hepatitis A Antibody IgM Nonreactive (Nonreactive); ~Hepatitis B Surface Antibody NONREACTIVE (Nonreactive); ~Hepatitis C Antibody Nonreactive (Nonreactive)
[2025-01-05 17:29] LABS: TS Negative Control Passed; TS Panel A 0; TS Panel B 0; TS Positive Control Passed; TSpotTB Negative (Negative)
== END 2025-01-02 10:18 | disposition home or self-care (01) ==
LOC: HO.LAB 10:17
PROVIDERS: PCP Family Medicine; Visit Provider Student in an Organized Health Care Education/Training Program
DX: Z11.59 Encounter for screening for other viral diseases (principal); Z11.1 Encounter for screening for respiratory tuberculosis; L40.50 Arthropathic psoriasis, unspecified; Z79.620 Long term (current) use of immunosuppressive biologic
CPT/HCPCS: 36415; 80053; 85025; 85652; 86140; 86481; 86704; 86706; 86709; 86803; 87340

== ENCOUNTER 2025-01-07 09:14 | Outpatient (AMB) | payer MEDICAID, SELFPAY ==
--- NOTE | 2025-01-07 09:39 | A.OFFVIS_ITS ---
Vital Signs 01/07/25 09:40 Height 5 ft 3.5 in Weight 166 lb 14.239 oz BMI 29.1 BP 120/70 Blood Pressure Location Lt brachial Position Sitting Pulse 82 Pulse Source Pulse Oximeter Pulse Oximetry (%) 100 Oxygen Delivery Method Room Air Intake Visit Reasons: PsA Intake Note: Patient presents for follow up on PSA. Patient would like to talk about Cosentyx, feels not working. Allergies adalimumab (From HUMIRA) Allergy (Unknown, Verified 01/07/25 09:42) Rash seafood Allergy (Verified 01/07/25 09:42) RASH secukinumab (From Cosentyx) Allergy (Verified 01/07/25 09:42) Chest Pain Medication List - Last Reconciled 01/07/25 by Eli Holcomb MD acetaminophen 1,000 mg PO Q8H aripiprazole 4 mg PO DAILY baclofen 10 mg PO TID clonidine HCl 0.1 mg PO BID gabapentin 400 mg PO TID hydroxyzine HCl 10 - 20 mg PO Q8H PRN lidocaine 5% 1 patch topical DAILY secukinumab (Cosentyx Pen) 150 mg subcut Q4W tirzepatide (weight loss) (Zepbound) 10 mg subcut QWEEK trazodone 50 mg PO BEDTIME PRN venlafaxine ER 37.5 mg PO DAILY venlafaxine ER 150 mg PO DAILY HPI Comments Details: Patient is a 38-year-old female with chronic lower back pain, psoriasis and psoriatic arthritis here today for follow up Interval History: Patient last seen 08/19/24 with me - on Cosentyx and gabapentin - arthritis controlled - psoriasis controlled - back pain worse at the end of the day - Sent to pain management Today, - saw pain management, scheduled for back injection but she cancelled due to anxiety - PsO controlled - Feels that the consentyx makes her tired. Has not taken the Consentyx since October due to insurance issues and feels her fatigue improved - Pain and swelling to the right DIP Rheumatologic History: Psoriasis and psoriatic arthritis dx around 2009 erosive Humira- Discontinued due Rash Enbrel- 09/2017 - 09/2018 discontinued due to insurance change Xeljanz 11/03 - 04/06 - discontinued due to active disease on exam Cosentyx- 04/06 -10/08 DC due to chest pain, restarted afterwards chest pain likely unrelated to Cosentyx Current Rheumatology Medication(s): Cosentyx 150mg every 4 weeks SC (not taking since October) Gabapentin 400mg tid daily PFSH Medical History Dermatitis Gestational diabetes mellitus Allergic urticaria Iron deficiency Seronegative arthritis History of PCOS Arthralgia Mass of finger Surgical History S/P panniculectomy Umbilical hernia History of tubal ligation H/O gastric bypass Family History Mother Thyroid cancer Hypertension Hx of cardiac pacemaker Social History Household Members: Family Housing: House Are you a primary manager medicare to a significant other at home: No Do you presently have visiting nurse or other home services: No 75 years or older and lives alone: No Alcohol intake: current Alcohol intake frequency: does not drink Patient Tobacco Use Status: Never used Tobacco e-Cigarette/Vaping Use: Never Used Review of Systems Const Details: Review of Systems Constitutional: Denies fever, chills, weight loss ENT: Denies vision changes, eye pain or eye redness, dental caries, dry mouth GI: Denies nausea, vomiting, diarrhea, abdominal pain, change in BM Pulm: Denies SOB, ROMO, hemoptysis, wheezing Cards: Denies chest pain, palpitations Skin: Denies Raynaud's, rash, nail changes, photosensitivity, SPECIFICATIONS CHECKER: Denies headaches, weakness, paresthesias, recurrent falls MSK: as per HPI All other systems reviewed and are unremarkable except noted above Physical Exam Exam Exam: Vital signs reviewed Physical Examination CONSTITUITIONAL Patient alert and cooperative. Well appearing and in no apparent painful distress HEENT Conjunctiva and sclera clear. No lymphadenopathy. CHEST/RESPIRATORY SYSTEM Normal respiratory effort and able to speak in complete sentences. Clear to auscultation bilaterally. No crackles, rales, rhonchi, wheezes heard. CARDIAC SYSTEM Regular rate and rhythm. S1 and S2 heard no murmurs. Radial pulses intact bilaterally MSK Hands * Right Hand: Able to make a fist. Swelling and flexion deformity noted to the right 2nd DIP with TTP. * Left Hand: Able to make a fist. No swelling or tenderness to palpation of these joints. No deformities noted. Wrists * Right Wrist: Full ROM. 70 degrees of wrist flexion, 80 degrees of wrist extension. No swelling or TTP * Left Wrist: Full ROM. 70 degrees of wrist flexion, 80 degrees of wrist extension. No swelling or TTP Elbows * Right Elbow: Full ROM. No swelling or TTP. No TTP of the medial and lateral epicondyles * Left Elbow: Full ROM. No swelling or TTP. No TTP of the medial and lateral epicondyles Shoulders * Right shoulder: Full ROM. No swelling noted. No TTP of the AC joint, subacromial bursa or posterior shoulder * Left shoulder: Full ROM. No swelling noted. No TTP of the AC joint, subacromial bursa or posterior shoulder Knees * Right knee: Full ROM. No swelling noted. No TTP of the knee joint lie or pes anserine bursa * Left knee: Full ROM. No swelling noted. No TTP of the knee joint lie or pes anserine bursa. Ankles * Right ankle: Good ankle dorsiflexion and plantar flexion. Mild swelling and TTP of the ankle joint * Left ankle: Good ankle dorsiflexion and plantar flexion. No swelling. No TTP of the ankle joint Feet * Right foot: Negative squeeze test * Left foot: Negative squeeze test Tender points? * No tenderness to palpation of the bilateral trapezius, supraspinatus, anterior costochondral junctions, bilateral suboccipital muscle insertions SKIN No rashes Vital Signs: Last Vital Signs Pulse 82 01/07/25 09:40 BP 120/70 01/07/25 09:40 Pulse Ox 100 01/07/25 09:40 Oxygen Delivery Method Room Air 01/07/25 09:40 BMI result Body Mass Index 29.1 Results Reviewed Results Reviewed: Laboratory Tests 01/02/25 10:31 WBC 5.3 RBC 4.02 L Hgb 12.1 Hct 35.5 L Plt Count 289 ESR 17 Sodium 140 Potassium 4.1 Chloride 110 H Carbon Dioxide 24 BUN 10 Creatinine 0.66 AST 19 ALT 13 C-Reactive Protein 0.42 Infectious serologies 01/02/25 10:31 Hepatitis A IgM Ab Nonreactive Hep Bs Antigen Negative Hep Bs Antibody NONREACTIVE Hep B Core Total Ab Nonreactive Hepatitis C Ab (EIA) Nonreactive TB Test (T-Spot) Com Negative Assessment & Plan Assessment & Plan (1) Psoriatic arthritis: Comment: dx around 2009 erosive Humira- Discontinued due Rash Enbrel- 09/2017 - 09/2018 discontinued due to insurance change Xeljanz 11/03 - 04/06 - discontinued due to active disease on exam Cosentyx- 04/06 -10/08 DC due to chest pain, restarted afterwards chest pain likely unrelated to Cosentyx Code(s): L40.50 - Arthropathic psoriasis, unspecified Category: Medical Plan: #PsA/PsO Patient is a 38-year-old female with psoriasis complicated by psoriatic arthritis. Patient with mild disease activity with the swelling and tenderness to palpation of the right 2nd DIPs and swelling of the right ankle. This is on a background of not taking her Cosentyx since October. We will need to contact the pharmacy and figure out why she has not been getting her medication. I also want to check x-rays of her hands to see if there has been progression of erosions involving the right 2nd DIPs because of the flexion deformity noted. Plan - Cosentyx 150mg SC every 4 weeks. Follow up with insurance/pharmacy about why patient not getting medication - Gabapentin 400mg tid - Check Hand XR bilaterally - RTC 4 months - Labs before follow up: CBC, CMP, ESR, CRP (2) Chronic lower back pain: Code(s): M54.50 - Low back pain, unspecified; G89.29 - Other chronic pain Category: Medical Qualifiers: Back pain laterality: midline Sciatica presence: without sciatica Qualified Code(s): M54.50 - Low back pain, unspecified; G89.29 - Other chronic pain Plan: #Chronic low back pain Patient with known chronic low back pain but now having worsening. 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 ?Risks include infections, injection site reactions, activation of inflammatory bowel disease. Benefits include improved disease activity. Discussed with patient that if she is feeling sick or having flu-like symptoms she is to hold the medication that week and resolved the following week. Plan I spent 40 minutes reviewing the record and labs, taking a history, examining the patient, discussing the treatment plan, ordering diagnostic work up, contacting pharmacy/insurance and documenting in the medical record Orders: Orders XR hand RT min 3V Today L40.50 - Arthropathic psoriasis, unspecified Erythrocyte Sedimentation Rate 4 Months L40.50 - Arthropathic psoriasis, unspecified XR hand LT min 3V Today L40.50 - Arthropathic psoriasis, unspecified Complete Blood Count Auto Diff 4 Months L40.50 - Arthropathic psoriasis, unspecified Comprehensive Met. 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
[2025-01-07 09:40] VITALS: BP 120/70; PULSE 82; O2SAT 100; BMI 29.1
--- OUTSIDE RECORDS SUMMARY | 2025-01-07 09:44 | XMS_ITS | Encounter Summary ---
Author Organization [employer] Address [address] [facility] 7t [place] [address] Care Team Providers Care Aquatic Scientist Name Role Phone Ginger Medel MD Primary Care Provider [phone]- [phone] David Miller Unavailable Unavailable Cristhian Vaz MD Unavailable [phone] Encounter Details Date Type Department Care Team (Late st Contact Info) Description 07/25/2022 Abstract [facility] MEDICINE [address] [place], [place] [phone] Ginger Medel MD [address] [place], [place] [phone] Social History Tobacco Use Types Packs/Day Years [...] documented as of this encounter Care Teams Aquatic Scientist Relationship Specialty Start Date End Date Ginger Medel MD [address] [place] [address] PCP - General Family Medicine 06/18/18 David Miller FNP [address] [place] [address] Nurse Practitioner Family Medicine 05/01/23 Cristhian Vaz MD [address] [place] [phone] Bariatrics 12/24/24 Eli Holcomb MD Rheumatology 09/01/24 documented as of this encounter
--- OUTSIDE RECORDS SUMMARY | 2025-01-07 09:44 | XMS_ITS | Encounter Summary ---
Author Organization [facility] Address [address] [place] [phone] Phone Care Team Providers Care Hacksaw Inspector Name Role Phone Lizy, Ginger Torres MD Primary Care [facility] Encounter Details Date Type Department Care Team (Late st Contact Info) Description 11/08/2023 Procedure Pass OR Admitting Dept - Virtual Department [address] [place] [address] Social History Tobacco Use Types Packs/Day Years [...] on filedocumented in this encounter Care Teams Hacksaw Inspector Relationship Specialty Start Date End Date Lizy, Ginger Torres MD [address] [place] [address] PCP - General Family Medicine 08/24/23 documented as of this encounter Additional Source Comments The information contained in this document represents components of the legal health record. It is not the complete legal health record.[facility]
--- OUTSIDE RECORDS SUMMARY | 2025-01-07 09:44 | XMS_ITS | Encounter Summary ---
Author Organization [facility] Address [address] [place] [address] Care Team Providers Care Aviation Boatswain'S Mate Name Role Phone Ginger Medel MD Primary Care Provider [phone] Reason for Visit * Reason Onset Date Comments Med Refill 12/29/2024 Zepbound w/titra tion Encounter Details Date Type Department Care Team (Late Contact Info) Description 12/29/2024 Telephone Bariatric Surgery - [place] [address] [phone] Cristhian Vaz MD [address] [address] Med Refill (Zepbound w/titration ) Social History [...] AM EDT Office Visit Bariatric Surgery - [place] [address] [phone] Cristhian Vaz MD [address] [phone] 03/20/2025 9:30 AM EDT Telemedicine Bariatric Surgery - [place] [address] [phone] Karine Rogers, RD [address] [phone] Scheduled Procedures Name Priority Associated Diagnoses Date/Ti me BRACHIOPLASTY Skin laxity documented as of this encounter Visit Diagnoses Not on filedocumented in this encounter Care Teams Aviation Boatswain'S Mate Relationship Specialty Start Date End Date Ginger Medel MD [address] [place] [phone] PCP - General Internal Medicine 10/22/14 documented as of this encounter
== END 2025-01-07 10:17 | disposition home or self-care (01) ==
LOC: HO.RHE 09:14
PROVIDERS: PCP Family Medicine; Visit Provider Student in an Organized Health Care Education/Training Program
DX: L40.50 Arthropathic psoriasis, unspecified (principal); M54.50 Low back pain, unspecified; G89.29 Other chronic pain; Z79.620 Long term (current) use of immunosuppressive biologic
CPT/HCPCS: 99214

== ENCOUNTER → 2025-01-07 09:14 | Outpatient (BNVA) | payer MEDICAID, SELFPAY | PROVIDERS: PCP Family Medicine; Visit Provider Student in an Organized Health Care Education/Training Program | DX: L40.50 Arthropathic psoriasis, unspecified (principal); M54.50 Low back pain, unspecified; G89.29 Other chronic pain; Z79.620 Long term (current) use of immunosuppressive biologic | CPT/HCPCS: 99212 ==

== ENCOUNTER 2025-01-14 12:31 | Outpatient (REF) | payer MEDICAID, SELFPAY ==
--- NOTE | ~2025-01-14 | XR_ITS ---
Exam: 4 view bilateral hands. INDICATION: L40.50 - Arthropathic psoriasis, unspecified TECHNIQUE: PA, ball-catcher's, lateral, x-rays bilateral hands Prior: March 01, 2021 Findings: RIGHT HAND: There is severe narrowing and marginal osteophytes with adjacent soft tissue swelling involving the DIP joint of the second digit, increased since the prior. There are no other areas of joint space narrowing. Bone mineral density is within normal limits. There is a focal erosion involving the radial margin of the distal articular surface of the scaphoid, and osteopenia on the ulnar side, unchanged. Subtle erosion at the base of the fourth metacarpal is unchanged. No other erosions are evident. Ulnar variance injured -4 mm. There is degenerative cystic change in the ulnar side of the lunate and ulnar styloid tip. LEFT HAND: Small marginal erosions are present along the radial side of the DIP joint of third digit, unchanged. There is a small chronic marginal erosion involving the radial base of the fourth proximal phalanx, unchanged. There is stable subtle osteopenia involving the radial margin of the distal articular surface of scaphoid. There are no new erosions. Joint spaces are preserved. There are no bony proliferative changes. There is no soft tissue swelling. XR/XR Hand Bilat min 3v IMPRESSION: Stable chronic erosions consistent with remission. Right hand: Possible abutment of ulnar styloid and lunate. Electronically signed by: Spenser Karimi MD 01/14/2025 01:29 PM EDT
--- OUTSIDE RECORDS SUMMARY | 2025-01-14 13:06 | XMS_ITS | Encounter Summary ---
Author Organization [facility] Address [address] [place] [phone] Phone Care Team Providers Care Asphalt Distributor Tender Name Role Phone Ginger Medel MD Primary Care [facility] Encounter Details Date Type Department Care Team (Late st Contact Info) Description 11/08/2023 Procedure Pass OR Admitting Dept - Virtual Department 30 [place] [address] Social History Tobacco Use Types Packs/Day Years [...] on filedocumented in this encounter Care Teams Asphalt Distributor Tender Relationship Specialty Start Date End Date Lizy, Ginger Torres MD [address] [place] [address] PCP - General Family Medicine 08/24/23 documented as of this encounter Additional Source Comments The information contained in this document represents components of the legal health record. It is not the complete legal health record.[facility]
--- OUTSIDE RECORDS SUMMARY | 2025-01-14 13:06 | XMS_ITS | Encounter Summary ---
Author Organization [employer] Address [address] [facility] 7[address] [place] [address] Care Team Providers Care Movie Theater Manager Name Role Phone Ginger Medel MD Primary Care Provider [phone] David Miller Unavailable Unavailable Cristhian Vaz MD Unavailable [phone] Encounter Details Date Type Department Care Team (Late st Contact Info) Description 07/25/2022 Abstract [facility] MEDICINE [address] [place], [place] [phone] Ginger Medel MD [address] [place], [place] [phone] Social History Tobacco Use Types Packs/Day Years [...] documented as of this encounter Care Teams Movie Theater Manager Relationship Specialty Start Date End Date Ginger Medel MD [address] [place] [address] PCP - General Family Medicine 06/18/18 David Miller FNP [address] [place] [address] Nurse Practitioner Family Medicine 05/01/23 Cristhian Vaz MD [address] [place] [phone] Bariatrics 12/24/24 Eli Holcomb MD Rheumatology 09/01/24 documented as of this encounter
--- OUTSIDE RECORDS SUMMARY | 2025-01-14 13:06 | XMS_ITS | Encounter Summary ---
Author Organization [facility] Address [address] [place] [address] Care Team Providers Care Rn Referral Name Role Phone Ginger Medel MD Primary Care Provider [phone] Reason for Visit * Reason Onset Date Comments Med Refill 12/29/2024 Zepbound w/titra tion Encounter Details Date Type Department Care Team (Late Contact Info) Description 12/29/2024 Telephone Bariatric Surgery - [place] [address] [phone] Cristhian Vaz MD [address] [address] Med Refill (Zepbound w/titration ) Social History [...] AM EDT Office Visit Bariatric Surgery - [place] [address] [phone] Cristhian Vaz MD [address] [phone] 03/20/2025 9:30 AM EDT Telemedicine Bariatric Surgery - [place] [address] [phone] Karine Rogers, RD [address] [phone] Scheduled Procedures Name Priority Associated Diagnoses Date/Ti me BRACHIOPLASTY Skin laxity documented as of this encounter Visit Diagnoses Not on filedocumented in this encounter Care Teams Rn Referral Relationship Specialty Start Date End Date Ginger Medel MD [address] [place] [phone] PCP - General Internal Medicine 10/22/14 documented as of this encounter
== END 2025-01-14 12:32 | disposition home or self-care (01) ==
LOC: HO.XRAY 12:31
PROVIDERS: PCP Family Medicine; Visit Provider Student in an Organized Health Care Education/Training Program
DX: L40.50 Arthropathic psoriasis, unspecified (principal)
CPT/HCPCS: 73130

== ENCOUNTER → 2025-01-14 12:46 | Outpatient (BNV) | payer MEDICAID, SELFPAY | PROVIDERS: PCP Family Medicine; Visit Provider Radiology Diagnostic Radiology | DX: L40.50 Arthropathic psoriasis, unspecified (principal) | CPT/HCPCS: 73130 ==

== ENCOUNTER 2025-03-04 10:30 | Outpatient (REF) | payer MEDICAID, SELFPAY ==
--- OUTSIDE RECORDS SUMMARY | 2025-03-04 09:45 | XMS_ITS | Encounter Summary ---
Author Organization [employer] Address [address] [facility] 7t [place] [address] Care Team Providers Care Umbrella Tipper Machine Name Role Phone Ginger Medel MD Primary Care Provider [phone] David Miller Unavailable Unavailable Cristhian Vaz MD Unavailable [phone] Encounter Details Date Type Department Care Team (Late st Contact Info) Description 03/04/2025 9:45 AM EDT Office Visit [facility] MEDICINE [address] [place], [place] [phone] Judith Jackson MD [address] [place], [place] [phone] Lump on neck (Primary Dx); Paresthesia; Vitamin D deficiency Social History Tobacco Use Types Packs/Day Years Used Date Smoking Tobacco: Never Smokeless Tobacco: Never Alcohol Use Standard Drinks/Week Comments Never 0 (1 standard drink = 0.6 oz pur e alcohol) Depression Answer Date Recorded Patient Health Questionnaire-9 Score 13 12/24/2024 Patient Health Questionnaire-9 Score 13 12/24/2024 Last PHQ-9: Questionnaire Data Not on file 0 12/24/2024 Housing Stability Answer Date Recorded What is your housing situation today? I have corazon reeves 12/16/[address] you li ve. Do you have problems with any of the following? None of the above 12/16/2024 Food Insecurity Answer Date Recorded Within the past 12 months, y ou worried that your food would run out before you got money to buy more: Never True 12/16/2024 Within the past 12 months,th e food you bought just didn't last and you didn't have enough money to get more: Never True 06/2024 Transportation Answer Date Recorded In the past 12 months, has l ack of transportation kept you from medical appts, meetings, work or from getting things needed for daily living? No 12/16/2024 Utilities Answer Date Recorded In the past 12 months, has t he electric, gas, oil or water company threatened to shut off services in your home? No 12/16/2024 Depression Answer Date Recorded Patient Health Questionnaire-2 Score 4 12/24/2024 Internet Access Answer Date Recorded Internet Access Q1 Yes 12/16/2024 Internet Access Q2 Not on file 12/16/2024 Comments Unknown Sex and Gender Information Value Date Recorded Sex Assigned at Female 04/17/2022 10:18 AM EDT Legal Sex Female 10:18 AM EDT Gender Identity Female 04/17/2022 10:18 AM EDT Sexual Orientation Straight 04/17/2022 10 :18 AM EDT documented as of this encounter Last Filed Vital Signs Vital Sign Reading Time Taken Comments Blood Pressure 110/70 03/04/2025 9:53 AM EDT Pulse 51 03/04/2025 9:53 AM EDT Temperature 36 C (96.8 F) 03/04/2025 9:53 AM EDT Respiratory Rate 16 03/04/2025 9:53 AM EDT Oxygen Saturation 95% 03/04/2025 9:53 AM EDT Inhaled Oxygen Concentration - - Weight 72.2 kg (159 lb 3.2 oz) 03/04/2025 9:53 A M EDT Height 160 cm (5' 3 ) 03/04/2025 9:53 AM EDT Body Mass Index 28.2 03/04/2025 9:53 AM EDT documented in this encounter Plan of Treatment Not on file documented as of this encounter Procedures Procedure Name Priority Date/Time Associated Diagnosis Comments VITAMIN D,25-OH,TOTAL,IA Routine 03/04/2025 10:45 AM EDT Vitamin D deficiency VITAMIN B12/FOLATE, SERUM PANEL Routine 03/04/2025 10:45 AM EDT Lump on neck Paresthesia TSH W/REFLEX TO FT4 Routine 03/04/2025 1 0:45 AM EDT Lump on neck Paresthesia CBC WITH AUTO DIFFERENTIAL Routine 03/04/2025 10:45 AM EDT Lump on neck Paresthesia documented in this encounter Results * (ABNORMAL) Vitamin D, 25-Hydroxy, Total, Immunoassay (03/04/2025 10:45 AM EDT) Vitamin D 25-OH Total 25.2(L) >30 ng/mL [facility] Comment: Health Based Reference Values*< 20 ng/mL [id number] ng/mL Insufficient> 30 ng/mL Sufficient*Nguyen PENA. N Engl J Med. 2007;357:266-280There is no well-established upper level of normal vitamin Dlevels. Some laboratories use 50 ng/mL as an upper limit ofnormal. However, toxicity is patient-dependent and may occurat any level. Careful correlation with the patient'spresentation is necessary and, if there is concern forvitamin D toxicity, treatment should be consideredirrespective of the serum level.Care must be taken in interpreting Vitamin D results fromdifferent laboratories and methodologies. Published datademonstrated that results from patients undergoinghemodialysis may show a negative bias when tested withvarious automated 25-OH vitamin D assays when compared toLC-MS/MS.When testing samples from patients whose predominant form ofVitamin D is Vitamin D2, such as patients receiving VitaminD2 supplementation, results that are subtherapeutic shouldbe confirmed with another method such as LC-MS/MS. Blood Venous blood specimen / Unknown 03/04/2025 10:45 AM EDT 03/04/2025 11:14 AM EDT us Judith Jackson MD LAB BLOOD ORDERABLES Final Resul t [facility] [address] [place] [phone] * TSH with Reflex to Free T4 (03/04/2025 10:45 AM EDT) TSH reflex Free T4 0.66 0.32 - 4.0 uIU/mL [facility] Blood 03/04/2025 10:4 5 AM EDT 03/04/2025 11:14 AM EDT Judith Jackson MD LAB BLOOD ORDERABLES Final Resul t Performing Organization Address [facility] Co de Phone Number [facility] [address] [place] [phone] * Vitamin B12 (Cobalamin) and Folate Panel, Serum (03/04/2025 10:45 AM EDT) Vitamin B12 631 200 - 900 pg/mL [facility] Comment:NORMAL 200-900 PG/M L INDETERMINATE 160-199 PG/ML DEFICIENT < 160 PG/ML Folate 12.5 > or = 4.0 ng/mL [facility] Comment:Reference Values:> o r = 4.0 ng/mL< 4.0 ng/mL suggests folate deficiency Methotrexate, aminopterin and folinic acid(leucovorin) are chemotherapeutic agents whose molecularstructures are similar to folate; therefore, the Architectfolate assay cannot be used for patients using these drugs. Blood 03/04/2025 10:4 5 AM EDT 03/04/2025 11:14 AM EDT us Judith Jackson MD LAB BLOOD ORDERABLES Final Resul t Performing Organization Address [facility] Co de Phone Number [facility] [address] [place] [phone] * (ABNORMAL) CBC auto differential (03/04/2025 10:45 AM EDT) White Blood Count 3.7(L) 4.8 - 10.8 X10*3/uL [facility] Red Blood Count 3.86(L) 4.20 - 5.50 X10*6/uL [facility] Hemoglobin 11.7(L) 12.0 - 16.0 g/dl [facility] Hematocrit 34.4(L) 37.0 - 47.0 % [facility] Mean Corpuscular Volume 89.1 80.0 - 98.0 fL [facility] Mean Corpuscular Hemoglobin 30.3 27.0 - 33.0 pg [facility] Mean Corpuscular HGB Conc 34.0 31.0 - 35.0 g/dl [facility] Red Cell Distribution Width 13.3 11.0 - 16.0 % [facility] Platelet Count 279 160 - 400 X10*3/uL [facility] Mean Platelet Volume 10.5 9.4 - 12.3 fL [facility] Neutrophils Percent Auto 51.7 45 - 73 % [facility] Imm Gran Pct Auto 0.3 0.0 - 0.4 % [facility] Lymphocytes Percent Auto 35.2 20 - 40 % [facility] Monocytes Percent Auto 7.4 2 - 11 % [facility] Eosinophils Percent Auto 4.9(H) 0 - 4 % [facility] Basophils Percent Auto 0.5 0 - 2 % [facility] NRBC Pct Auto 0.0 0.0 - 0.2 /100WBC [facility] Neutrophils Absolute Auto 1.9(L) 2.0 - 8.3 x10*3/uL [facility] Imm Gran Abs Auto 0.01 0.00 - 0.03 X10*3/uL [facility] Lymphocytes Absolute Auto 1.3 1.2 - 4.9 X10*3/uL [facility] Monocytes Absolute Auto 0.3 0.1 - 1.2 X10*3/uL [facility] Eosinophils Absolute Auto 0.2 0.0 - 0.4 X10*3/uL [facility] Basophils Absolute Auto 0.0 0.0 - 0.2 X10*3/uL [facility] NRBC Abs Auto 0.000 0.0 - 0.012 X10*3/uL [facility] Blood Venous blood specimen / Unknown 03/04/2025 10:45 AM EDT 03/04/2025 11:14 AM EDT us Judith Jackson MD LAB BLOOD ORDERABLES Final Resul t [facility] [address] [place] [phone] documented in this encounter Visit Diagnoses Diagnosis Lump on neck- Primary Swelling, mass, or lump in head and neck Paresthesia Disturbance of skin sensation Vitamin D deficiency documented in this encounter Additional Health Concerns Assessment Noted Time PHQ-9 Depression Total Score: 13 025 10:37 AM EDT documented as of this encounter Care Teams Umbrella Tipper Machine Relationship Specialty Start Date End Date Ginger Medel MD [address] [place] [address] PCP - General Family Medicine 06/18/18 David Miller FNP [address] [place] [address] Nurse Practitioner Family Medicine 05/01/23 Cristhian Vaz MD [address] [place] [phone] Bariatrics 12/24/24 Eli Holcomb MD Rheumatology 09/01/24 documented as of this encounter
[2025-03-04 11:21] LABS: MANUAL DIFF FLAG NO
[2025-03-04 11:32] LABS: Hematocrit 34.4 % (37.0-47.0); Hemoglobin 11.7 g/dl (12.0-16.0); Imm Gran Abs Auto 0.01 X10*3/uL (0.00-0.03); Imm Gran Pct Auto 0.3 % (0.0-0.4); Lymphocytes Absolute Auto 1.3 X10*3/uL (1.2-4.9); Mean Corpuscular HGB Conc 34.0 g/dl (31.0-35.0); Mean Corpuscular Hemoglobin 30.3 pg (27.0-33.0); Mean Corpuscular Volume 89.1 fL (80.0-98.0); NRBC Abs Auto 0.000 X10*3/uL (0.0-0.012); NRBC Pct Auto 0.0 /100WBC (0.0-0.2); Platelet Count 279 X10*3/uL (160-400); Red Blood Count 3.86 X10*6/uL (4.20-5.50); White Blood Count 3.7 X10*3/uL (4.8-10.8)
[2025-03-04 12:26] LABS: Folate 12.5 ng/mL (> or = 4.0); Vitamin B12 631 pg/mL (200-900)
--- OUTSIDE RECORDS SUMMARY | 2025-03-04 12:54 | XMS_ITS | Clinical Summary ---
Author Organization [employer] Address [address] [facility] [address] [place] [address] Care Team Providers Care Unit Trust Manager Name Role Phone Ginger Medel MD Primary Care Provider [phone] David Miller Unavailable Unavailable Cristhian Vaz MD Unavailable [phone] Allergies Active Allergy Reactions Criticality Noted Date Comments Adalimumab Rash Low 07/23/2017 Other reaction(s): Rash Fish-Derived Products Rash Low 11/01/2023 Shellfish Allergy 10/23/2022 Medications * This document contains information received from the source organization and may not represent a complete record from that organization. hydrOXYzine HCl (Atarax) 10 MG tabletIndication s:Anxious depression TAKE 1 TO 2 TABLETS BY MOUTH EVERY 6 HOURS IF NEEDED FOR ANXIETY 200 tablet 5 12/11/2023 Active venlafaxine XR (Effexor XR) 150 MG 24 hr capsuleIndicatio ns:Anxious depression Take 1 capsule orally once daily with food. Do not crush or chew. 90 capsule 3 12/11/2023 Active cyclobenzaprine (Flexeril) 10 MG tabletIndication s:Psoriatic arthritis mutilans (CMS/HCC) Take 10 mg by mouth if needed in the morning, at noon, and at bedtime. 10/23/2023 Active gabapentin (Neurontin) 400 MG capsuleIndicatio ns:Psoriatic arthritis mutilans (CMS/HCC) Take 400 mg by mouth 3 times daily. Active Multiple Vitamin (multivitamin) capsuleIndicatio ns:Hx of gastric bypass Take 1 capsule by mouth Once per day. Active Tirzepatide-Weig ht Management (Zepbound) 7.5 MG/0.5ML solutionIndicati ons:Class 1 obesity due to excess calories with serious comorbidity and body mass index (BMI) of 30.0 to 30.9 in adult Inject under the skin. Active Multiple Vitamins-Mineral s (Nicazel) tabletIndication s:Class 1 obesity due to excess calories with serious comorbidity and body mass index (BMI) of 30.0 to 30.9 in adult Take 1 tablet by mouth Once per day. 08/23/2023 Active Secukinumab (Cosentyx) 75 MG/0.5ML solution prefilled syringeIndicatio ns:Psoriatic arthritis mutilans (CMS/HCC) Inject under the skin. Active cloNIDine (Catapres) 0.1 MG tabletIndication s:Anxious depression Take 1 tablet (0.1 mg) by mouth 2 times daily. 180 tablet 3 01/19/2025 Active ARIPiprazole (Abilify) 10 MG tabletIndication s:Anxious depression TAKE 1 TABLET BY MOUTH EVERY DAY 90 tablet 01/30/2025 Active traZODone (Desyrel) 150 MG tabletIndication s:Anxious depression TAKE 1 TABLET BY MOUTH AT BEDTIME 90 tablet 01/30/2025 Active Active Problems Problem Noted Date Diagnosed Date Skin irritation 12/24/2024 Assessment & Plan (12/24/2024 1:59 PM EDT): -Due to excess skin from weight loss. -per pt preferance referred to plastic surgery 12/24/24 Orders: Referral to Plastic Surgery; Future Encounter for immunization 12/24/2023 Assessment & Plan (12/24/2024 1:59 PM EDT): Orders: TDAP VACCINE 7 yrs + Edentulous 12/24/2023 Overview (12/24/2023): -has dentures due to snoring occasionally -will schedule with specialist for refitting Assessment & Plan (12/24/2023 9:20 AM EDT): -has dentures due to snoring occasionally -will schedule with specialist for refitting Other specified health status 12/21/2023 Overview (12/24/2024): -next comprehensive annual evaluation due after 12/25/23 -eye care facilitated by in [facility] is in [facility] proxy given and filled 12/21/23 Assessment & Plan (12/24/2024 1:59 PM EDT): -next comprehensive annual evaluation due after 12/25/23 -eye care facilitated by in [facility] is in [facility] proxy given and filled 12/21/23 Assessment & Plan (12/24/2023 9:18 AM EDT): -next physical exam due after 12/23/2024 -eye care facilitated by in [facility] is in [facility] proxy given and filled 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 Continue current medications: Trazodone 150 mg at bedtime, Abilify 10 mg daily, Venlafaxine 150 mg daily, Clonidine 0.1 mg BID, and Hydroxyzine 10 mg prn anxiety. She also takes Gabapentin 400 mg TID per Input Output Clerk. She has discontinued with her therapist. May request new referral in the future if interested. Since this provider will be retiring, patient is now referred back to PCP for further medication management. Any issues or concerns, call [facility]. All her questions were answered and I have wished her well. She agrees with the plan. Assessment & Plan (10/18/2023 1:53 PM EDT): Generally doing OK. Continue current medications: Trazodone 150 mg at bedtime, Abilify 10 mg daily, Venlafaxine 150 mg daily, Clonidine 0.1 mg BID, and Hydroxyzine 10 mg prn anxiety. She also takes Gabapentin 400 mg TID per Input Output Clerk. She will F/u with her therapist. F/U [...] also takes Gabapentin 400 mg TID per Input Output Clerk. She will F/u with Integrated clinician as [...] also takes Gabapentin 400 mg TID per Input Output Clerk. She will F/u with Integrated clinician. On [...] on 11/11/21. -Doing well. Assessment & Plan (12/24/2024 1:59 PM EDT): Assessment & Plan (12/21/2023 9:03 AM EDT): [...] -Doing well. 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 -note from Dr. Holcomb 01/07/25 reviewed - Cosentyx 150mg SC every 4 weeks. Follow up with insurance/pharmacy about why patient not getting medication Assessment & Plan (12/24/2024 1:59 PM EDT): - Pt followed by rheumatology Lilo [...] 4 weeks - Gabapentin 400mg tid - L/S spine and SI joint XR's unremarkable with mild arthritic changes of the SI joints. Assessment & Plan (12/24/2023 8:19 AM EDT): [...] EDT): - Pt followed by rheumatology Lilo Agiurre NP - T-spot was neg 04/2017 -MRI of her hands from 2009 demonstrated tenosynovitis. Serology was negative RF and CCP. -Humira discontinued due to rash. -Enbrel discounted due to insurance. -Xeljanz 11/03-03/2020 discontinued due to inactive disease on exam. -Cosentyx since 03/2021 discontinued due to chest pain. -Not on any medication. 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 Per [facility] office, last pap was normal 11/2021. Assessment & Plan (12/24/2023 8:58 AM EDT): -Distant hx of dysplasia of cervix. Per [facility] office, last pap was normal 11/2021. Assessment & Plan (10/24/2022 7:15 AM EDT): -Distant hx of dysplasia of cervix. Per [facility] office, last pap was normal 11/2021. We [...] may not be significant. Assessment & Plan (12/24/2024 1:59 PM EDT): Well controlled. It is possible she [...] be significant. Obesity 12/25/2011 Assessment & Plan (12/24/2024 1:59 PM EDT): Discussed weight, diet, exercise with patient in relation to health conditions. Used motivational interviewing to illicit change talk and established initial goals with patient. Assessment & Plan (10/24/2022 7:16 AM EDT): -hx of gastric bypass with revision 10/[address] Vaz Resolved Problems Problem Noted Date Diagnosed Date Resolved Date Exercise counseling 12/24/2023 12/25/19 25 Dietary counseling 12/24/2023 Preop examination 10/19/2023 12/21/2023 Assessment & Plan [...] (10/24/2022 7:17 AM EDT): -We called her [facility], last PAP was 11/2021, NILM HPV negative. [...] Health Integration Plan Internal Follow up with [facility] Assessment & Plan (05/01/2023 9:53 AM EST): [...] also takes Gabapentin 400 mg TID per Input Output Clerk. F/U with me in 6-8 weeks. She [...] also takes Gabapentin 400 mg TID per Input Output Clerk. F/U with me in 4-6 weeks. She [...] also takes Gabapentin 400 mg TID per Input Output Clerk. F/U with me in 2-3 months. She [...] 6-8 hours as needed for panic attack. -Nickoies OTILIA Assessment & Plan (09/14/2022 9:32 AM EDT): [...] any medication. Joint pain 07/02/2013 10/24/2022 Encounters * This document contains information received from the source organization and may not represent a complete record from that organization. Date Type Department Care Team Description 03/04/2025 9:45 AM EDT Office Visit [address] [address] Judith Jackson MD Lump on neck (Primary Dx); Paresthesia; Vitamin D deficiency 03/04/2025 Travel 03/03/[address] [address] Judith Jackson MD CHART PREP 03/03/[address] [address] Ginger Medel MD Nurse Triage 01/30/[address] [address] Ginger Medel MD Anxious depression 01/19/2025 Refill [facility] [address] [place], [place] [phone] Ginger Medel MD Anxious depression 01/14/2025 Orders Only [facility] External Provider, [facility] 12/24/2024 10:30 AM EDT Office Visit [address] [address] Ginger Medel MD Skin irritation (Primary Dx); Psoriatic arthritis mutilans ([facility]); Mild intermittent asthma without complication; Class 1 obesity due to excess calories with serious comorbidity and body mass index (BMI) of 30.0 to 30.9 in adult; Dietary counseling; Exercise counseling; Encounter for immunization; Other specified health status; Pain; Hx of gastric bypass; Anxious depression 12/24/2024 Travel 12/23/[address] [address] Ginger Medel MD CHART PREP 12/16/2024 Patient Outreach [facility] [address] [place], [place] [phone] Ginger Medel MD Pre-visit Planning (SDOH negative. Tobacco screening negative.) from Last 3 Months Immunizations Immunization Administration [...] 20 12/24/2023 Pneumococcal Polysaccharide PPSV23 06/14/2006 Tdap 12/24/2024, 5,02/11/2013,03/20 Family History Medical History Relation Name Comments [...] Q2 Not on file 12/16/2024 Comments Unknown Intention Date Recorded No desire to become (finding) 0 12/24/2024 Sex and Gender Information Value Date Recorded [...] Mass Index 28.2 03/04/2025 9:53 AM EDT Plan of Treatment Health Maintenance Due Date Last Done Comments HPV Vaccines (1 - 3-dose series) 11/05/1998 COVID-19 Vaccine ( season) 2025 04/19/2021, 08/21/2020, 07/31/2020 Influenza Vaccine (#1) 2025 , 03/16/2023, 04/06/2022, Additional history exists Depression Monitoring 06/26/2025 12/24/2024, 025 SDOH Screening 12/16/2025 12/16/2024 Alcohol/Substance Use Screening 12/24/2025 12/24/2024 Disability Screening 12/24/2025 12/24/2024 Family Planning (PISQ) 12/24/2025 12/24/2024 Tobacco Screening 03/04/2026 03/04/2025 Mammogram 11/14/2026 11/14/2024, 10/18, 05/04/2022 Cervical Cancer Screening 11/16/2026 HPV/Cotest 11/16/2026 11/16/2021 Pap Smear 11/16/2026 11/16/2021, 05/14/2009 Lipid Panel 10/28/2027 10/27/2022 Zoster Vaccines (1 of 2) 11/05/2033 DTaP/Tdap/Td Vaccines (5 - Td or Tdap) 12/24/2034 12/24/2024, 08/14/2014, 02/11/2013, Additional history exists RSV Patients and Patients Aged 60 years or older (1 - 1-dose 75+ series) 11/05/2058 Hepatitis A Vaccines Aged Out 01/23/2012, 08/23/2011, 07/25/2011 No longer eligible based on patient's age to complete this topic Hepatitis B Vaccines Completed 01/23/2012, 08/23/2011, 07/25/2011 HIV Screening Completed 10/27/2022 Pneumococcal Vaccine: Pediatrics (0 to 5 Years) and At-Risk Patients (6 to 49) Years Completed 12/24/2023, 06/14/2006 Hepatitis C Screening Completed 01/02/2025 , 10/27/2022, 10/05/2022, Additional history exists HIB Vaccines Aged Out [...] 03/04/2025 10:45 AM EDT Vitamin D deficiency TSH W/REFLEX TO FT4 Routine 03/04/2025 1 0:45 AM EDT Lump on neck Paresthesia VITAMIN B12/FOLATE, SERUM PANEL Routine 03/04/2025 10:45 AM EDT Lump on neck Paresthesia CBC WITH AUTO DIFFERENTIAL Routine 03/04/2025 10:45 AM EDT Lump on neck Paresthesia XR HAND 3+ VIEWS BILATERAL Routine 01/14/2025 1:00 PM EDT T-SPOT(R).TB Routine 01/02/2025 10:31 AM EDT HEPATITIS PANEL, GENERAL Routine 01/02/2025 10:31 AM EDT C-REACTIVE PROTEIN Routine 01/02/2025 10 :31 AM EDT COMPREHENSIVE METABOLIC PANEL Routine 01/02/2025 10:31 AM EDT SED RATE BY MODIFIED WESTERGREN Routine 01/02/2025 10:31 AM EDT CBC WITH AUTO DIFFERENTIAL Routine 01/02/2025 10:31 AM EDT HIV 1/2 ANTIGEN/ANTIBODY, FOURTH GENERATION W/RFL Routine [...] Recently Relevant to Health Maintenance Results * (ABNORMAL) Vitamin D, 25-Hydroxy, Total, Immunoassay (03/04/2025 10:45 AM EDT) Vitamin D 25-OH Total 25.2(L) >30 ng/mL [facility] Comment: Health Based Reference Values*< 20 ng/mL Rawlhquxt43-92 ng/mL Insufficient> 30 ng/mL Sufficient*Nguyen PENA. N [...] MD LAB BLOOD ORDERABLES Final Resul t [facility] [address] [place] [phone] * Vitamin B12 (Cobalamin) and Folate Panel, Serum (03/04/2025 10:45 AM EDT) Vitamin B12 631 200 - 900 pg/mL [facility] Comment:NORMAL 200-900 PG/ML INDETERMINATE 160-199 PG/ML DEFICIENT < 160 PG/ML Folate 12.5 > or = 4.0 ng/mL [facility] Comment:Reference Values:> o r = 4.0 ng/mL< 4.0 ng/mL suggests folate deficiency Methotrexate, aminopterin and folinic acid(leucovorin) are chemotherapeutic agents whose molecularstructures are similar to folate; therefore, the Architectfolate assay cannot be used for patients using these drugs. Blood 03/04/2025 10:4 5 AM EDT 03/04/2025 11:14 AM EDT Judith Jackson MD LAB BLOOD ORDERABLES Final Resul t Performing Organization Address [facility] Co de Phone Number [facility] [address] [place] [phone] * TSH with Reflex to Free T4 (03/04/2025 10:45 AM EDT) TSH reflex Free T4 0.66 0.32 - 4.0 uIU/mL [facility] Blood 03/04/2025 10:4 5 AM EDT 03/04/2025 11:14 AM EDT Judith Jackson MD LAB BLOOD ORDERABLES Final Resul t Performing Organization Address [facility] de Phone Number [facility] [address] [place] [phone] * (ABNORMAL) CBC auto differential (03/04/2025 10:45 AM EDT) Only the most recent of2 resultswithin the time period is included. White Blood Count 3.7(L) 4.8 - 10.8 X10*3/uL [facility] Red Blood Count 3.86(L) 4.20 - 5.50 X10*6/uL [facility] Hemoglobin 11.7(L) 12.0 - 16.0 g/dl [facility] Hematocrit 34.4(L) 37.0 - 47.0 % [facility] Mean Corpuscular Volume 89.1 80.0 - 98.0 fL [facility] Mean Corpuscular Hemoglobin 30.3 27.0 - 33.0 pg [facility] Mean Corpuscular HGB Conc 34.0 31.0 - 35.0 g/dl [facility] Red Cell Distribution Width 13.3 11.0 - 16.0 % [facility] Platelet Count 279 160 - 400 X10*3/uL [facility] Mean Platelet Volume 10.5 9.4 - 12.3 fL [facility] Neutrophils Percent Auto 51.7 45 - 73 % [facility] Imm Gran Pct Auto 0.3 0.0 - 0.4 % [facility] Lymphocytes Percent Auto 35.2 20 - 40 % [facility] Monocytes Percent Auto 7.4 2 - 11 % [facility] Eosinophils Percent Auto 4.9(H) 0 - 4 % [facility] Basophils Percent Auto 0.5 0 - 2 % [facility] NRBC Pct Auto 0.0 0.0 - 0.2 /100WBC [facility] Neutrophils Absolute Auto 1.9(L) 2.0 - 8.3 x10*3/uL [facility] Imm Gran Abs Auto 0.01 0.00 - 0.03 X10*3/uL [facility] Lymphocytes Absolute Auto 1.3 1.2 - 4.9 X10*3/uL [facility] Monocytes Absolute Auto 0.3 0.1 - 1.2 X10*3/uL [facility] Eosinophils Absolute Auto 0.2 0.0 - 0.4 X10*3/uL [facility] Basophils Absolute Auto 0.0 0.0 - 0.2 X10*3/uL [facility] NRBC Abs Auto 0.000 0.0 - 0.012 X10*3/uL [facility] Blood Venous blood specimen / Unknown 03/04/2025 10:45 AM EDT 03/04/2025 11:14 AM EDT us Judith Jackson MD LAB BLOOD ORDERABLES Final Resul t [facility] [address] [place] [phone] * XR Hand 3+Views Bilateral (01/14/2025 1:00 PM EDT) Anatomical Region Laterality Modality Upper Extremities, Hand Bilateral Radiogra phic Imaging 01/14/2025 1:00 PM EDT Narrative 01/14/2025 1:32 PM EDT [address] [address] XRay Report Signed Patient: Ruchi Cherry MR#: [id number] : 1985 Acct:[id number] Age/Sex: 39 / F ADM Date: 01/14/25 Loc: [facility] Attending Dr: Eli Holcomb MD Ordering Physician: Eli Holcomb MD Date of Service: 01/14/25 Procedure(s): XR Hand Bilat min 3v Accession Number(s): [id number] cc: Eli Holcomb MD; Ginger Medel MD Exam: 4 view bilateral hands. INDICATION: L40.50 - Arthropathic psoriasis, unspecified TECHNIQUE: PA, ball-catcher's, lateral, x-rays bilateral hands Prior: March 01, 2021 Findings: RIGHT HAND: There is severe narrowing and marginal osteophytes with adjacent soft tissue swelling involving the DIP joint of the second digit, increased since the prior. There are no other areas of joint space narrowing. Bone mineral density is within normal limits. There is a focal erosion involving the radial margin of the distal articular surface of the scaphoid, and osteopenia on the ulnar side, unchanged. Subtle erosion at the base of the fourth metacarpal is unchanged. No other erosions are evident. Ulnar variance injured -4 mm. There is degenerative cystic change in the ulnar side of the lunate and ulnar styloid tip. LEFT HAND: Small marginal erosions are present along the radial side of the DIP joint of third digit, unchanged. There is a small chronic marginal erosion involving the radial base of the fourth proximal phalanx, unchanged. There is stable subtle osteopenia involving the radial margin of the distal articular surface of scaphoid. There are no new erosions. Joint spaces are preserved. There are no bony proliferative changes. There is no soft tissue swelling. XR/XR Hand Bilat min 3v IMPRESSION: Stable chronic erosions consistent with remission. Right hand: Possible abutment of ulnar styloid and lunate. Electronically signed by: Spenser Karimi MD 01/14/2025 01:29 PM EDT RP Dictated By: Spenser Karimi MD Signed By: <Electronically signed by Spenser Karimi MD in OV> 01/14/25 1329 DD/ 1300 TD/TT: 01/14/25 1310 Technology Support Analyst: Procedure Note Donotuseinterpreter, Image - 01/14/[address] [address] XRay Report Signed Patient: Ruchi Cherry MMR#: [id number] : 1985Acct:[id number] Age/Sex: 39 / FADM Date: 01/14/25 Loc: [facility] Attending Dr: Eli Holcomb MD Ordering Physician: Eli Holcomb MD Date of Service: 01/14/25 Procedure(s): XR Hand Bilat min 3v Accession Number(s): [id number] cc: Eli Holcomb MD; Ginger Medel MD Exam: 4 view bilateral hands. INDICATION: L40.50 - Arthropathic psoriasis, unspecified TECHNIQUE: PA, ball-catcher's, lateral, x-rays bilateral hands Prior: March 01, 2021 Findings: RIGHT HAND: There is severe narrowing and marginal osteophytes with adjacent soft tissue swelling involving the DIP joint of the second digit, increased since the prior. There are no other areas of joint space narrowing. Bone mineral density is within normal limits. There is a focal erosion involving the radial margin of the distal articular surface of the scaphoid, and osteopenia on the ulnar side, unchanged. Subtle erosion at the base of the fourth metacarpal is unchanged. No other erosions are evident. Ulnar variance injured -4 mm. There is degenerative cystic change in the ulnar side of the lunate and ulnar styloid tip. LEFT HAND: Small marginal erosions are present along the radial side of the DIP joint of third digit, unchanged. There is a small chronic marginal erosion involving the radial base of the fourth proximal phalanx, unchanged. There is stable subtle osteopenia involving the radial margin of the distal articular surface of scaphoid. There are no new erosions. Joint spaces are preserved. There are no bony proliferative changes. There is no soft tissue swelling. XR/XR Hand Bilat min 3v IMPRESSION: Stable chronic erosions consistent with remission. Right hand: Possible abutment of ulnar styloid and lunate. Electronically signed by: Spenser Karimi MD 01/14/2025 01:29 PM EDT RP Dictated By: Spenser Karimi MD Signed By: <Electronically signed by Spenser Karimi MD in OV> 01/14/25 1329 DD/ 1300 TD/TT: 01/14/25 1310 Technology Support Analyst: [facility] External Provider IMG XR PROCEDURES Final Result * T-SPOT??.TB (01/02/2025 10:31 AM EDT) T Spot TB Negative Negative [facility] Comment:A negative test resu lt does not exclude the possibilityof exposure to or infection with Mycobacteriumtuberculosis (M. tuberculosis). Patients with recentexposure to TB infected individuals exhibiting anegative T-SPOT.TB result should be considered forretesting within 6 weeks or if other relevant clinicalsymptoms indicate. Results from T-SPOT.TB testing mustbe used in conjunction with each individual'sepidemiological history, current medical status,and results of other diagnostic evaluations.The T-SPOT.TB test is qualitative and results arereported as positive, borderline, or negative, giventhat the test controls perform as expected. In linewith the Centers for Disease Control and Prevention's2010 recommendation to report quantitative measurementsalongside the qualitative result, the laboratoryprovides spot counts for informational purposes only.The T-SPOT.TB test should not be interpreted as aquantitative test. TS PANEL A 0 [facility] TS PANEL B 0 [facility] Negative Control Passed [facility] Positive Control Passed [facility] Comment:For additional infor dagoberto, please refer [email or web address]/faq/[email or web address](This link is being provided for informational/educational purposes only.)REPORT COMMENT:REC'D IN CHYTHIS TEST WAS PERFORMED AT:[employer] [place] [id number] [place] [id number] CAT MD,PHD 01/02/2025 10:3 1 AM EDT 01/02/2025 10:31 AM EDT us Generic External Data Provider LAB BLOOD ORDERAB LES Final Result Performing Organization Address [facility] Co de Phone Number [facility] [address] [place] [phone] * Hepatitis Panel, General (01/02/2025 10:31 AM EDT) Hepatitis A IgM Nonreactive Nonreactive [facility] Comment:IgM antibodies to FORTUNE V not detected; does not exclude earlyacute or recovered HAV infection. ~Hepatitis B Surface Antibody NONREACTIVE Nonreactive [facility] Comment:Nonreactive: < 8.00 mIU/mL Hepatitis B Core Antibody Nonreactive Nonreactive [facility] Hepatitis C Antibody Nonreactive Nonreactive [facility] Comment:Antibodies to HCV no t detected; does not exclude early acuteHCV infection. Hepatitis B Surface Ag Negative Negative [facility] 01/02/2025 10:3 1 AM EDT 01/02/2025 10:31 AM EDT us Generic External Data Provider LAB BLOOD ORDERAB LES Final Result Performing Organization Address [facility] Co de Phone Number [facility] [address] [place] [phone] * Sed Rate by Modified Russell (01/02/2025 10:31 AM EDT) Erythrocyte Sedimentation Rate 17 0 - 20 MM/HR [facility] Comment:Patients with polycy themia and many hemoglobin abnormalitiesmay have depressed sed rates whereas patients with anemiamay have elevated sed rates. 01/02/2025 10:3 1 AM EDT 01/02/2025 10:31 AM EDT Generic External Data Provider LAB BLOOD ORDERAB LES Final Result Performing Organization Address [facility]/ZIP Co de Phone Number [facility] [address] [place] [address] [phone] * C-reactive Protein (01/02/2025 10:31 AM EDT) C Reactive Protein 0.42 < or = 0.50 mg/dL [facility] 01/02/2025 10:3 1 AM EDT 01/02/2025 10:31 AM EDT Generic External Data Provider LAB BLOOD ORDERAB LES Final Result Performing Organization Address [facility] Co de Phone Number [facility] [address] [place] [address] [phone] * (ABNORMAL) Comprehensive Metabolic Panel (01/02/2025 10:31 AM EDT) Sodium 140 135 - 145 mmol/L [facility] Potassium 4.1 3.3 - 5.1 mmol/L [facility] Chloride 110(H) 96 - 108 mmol/L [facility] Carbon Dioxide 24 22 - 29 mmol/L [facility] Anion Gap 10(L) 12 - 20 [facility] Urea Nitrogen (BUN) 10 9 - 16 mg/dL [facility] Creatinine, Serum 0.66 0.5 - 1.4 mg/dL [facility] Estimated Glomerular Filt Rate >60 [facility] Comment:Chronic Kidney Disea se: Estimated GFR < 60 mL/min/1.70w9Hzvmez Kidney Disease: Estimated GFR < 15 mL/min/1.73m2 Glucose 99 60 - 115 mg/dL [facility] Calcium 9.1 8.4 - 10.2 mg/dL [facility] Bilirubin, Total 1.0 0.0 - 1.0 mg/dL [facility] Aspartate Amino Transferase 19 5 - 31 U/L [facility] Alanine Aminotransferase 13 0 - 31 U/L [facility] Total Protein 7.3 6.5 - 8.0 g/dL [facility] Albumin Level 4.5 3.5 - 5.0 g/dL [facility] Alkaline Phosphatase 71 39 - 117 U/L [facility] 01/02/2025 10:3 1 AM EDT 01/02/2025 10:31 AM EDT us Generic External Data Provider LAB BLOOD ORDERAB LES Final Result [facility] [address] [place] [phone] [phone] * HIV-1/2 Antigen and Antibodies, Fourth Generation, with Reflexes (10/27/2022 9:47 AM EDT) Pathologist [facility] HIV Antigen/Antibody, 4th Generation NON-REAC TIVE NON-REAC TIVE [facility] Comment: HIV-1 antigen and HIV-1/HIV-2 antibodies were not detected. There is no laboratory evidence of HIV infection. PLEASE NOTE: This information has been disclosed to you from records whose confidentiality may be protected by state law. If your state requires such protection, then the state law prohibits you from making any further disclosure of the information without the specific written consent of the person to whom it pertains, or as otherwise permitted by law. A general authorization for the release of medical or other information is NOT sufficient for this purpose. For additional information please refer to http://education.[employer]/faq/RWY419 (This link is being provided for informational/ educational purposes only.) The performance of this assay has not been clinically validated in patients less than 2 years old. Blood Venous blood specimen / Unknown 10/27/2022 9:47 AM EDT 10/27/2022 9:47 AM EDT Narrative [facility] - 11/02/2022 2:24 PM EDT FASTING:YES FASTING: YES Ginger Medel MD LAB BLOOD ORDERABLES Final Result [facility] [address], [place] [address] [facility] [place] [facility] [address] [place] [address] * Lipid Panel, Standard (10/27/2022 9:47 AM EDT) [facility] Cholesterol, Total 176 <200 mg/dL [facility] [place] [facility] HDL Cholesterol 74 > OR = 50 mg/dL [facility] [place] [facility] Triglycerides 57 <150 mg/dL [facility] [place] [facility] LDL Cholesterol 88 mg/dL (calc) [facility] [place] [facility] Comment: Reference range: <100 Desirable range <100 mg/dL for primary prevention; <70 mg/dL for patients with CHD or diabetic patients with > or = 2 CHD risk factors. LDL-C is now calculated using the Filemon-Tereza calculation, which is a validated novel method providing better accuracy than the Friedewald equation in the estimation of LDL-C. Filemon SS et al. TATYANA. 2013;310(19): 9935-6311 (http://education.PluggedIn/faq/NGL264) Chol/HDLC Ratio 2.4 <5.0 (calc) [facility] [place] [facility] Non-HDL Cholesterol 102 <130 mg/dL (calc) [facility] [place] [facility] Comment: For patients with diabetes plus 1 major ASCVD risk factor, treating to a non-HDL-C goal of <100 mg/dL (LDL-C of <70 mg/dL) is considered a therapeutic option. Blood Venous blood specimen / Unknown 10/27/2022 9:47 AM EDT 10/27/2022 9:47 AM EDT Narrative [facility] - 11/02/2022 2:24 PM EDT FASTING:YES FASTING: YES Ginger Medel MD LAB BLOOD ORDERABLES Final Result Performing Organization Address City/[facility] Co de Phone Number [facility] [address] [facility], [place] [address] [facility] [address] [place] [address] * Mammography Report 1 (05/04/2022 9:53 AM [...] Kaila Provider LAB PATHOLOGY ORDERABLES Final Result Performing Organization Address [facility] Co de Phone Number IMAGING from Last 3 Months or Most Recently Relevant to Health Maintenance [place] [address] [address] [place] [address] C3 Care Teams Unit Trust Manager Relationship Specialty Start Date End Date [place], MD Ginger [address] [place] [address] PCP - General Family Medicine 06/18/18 David Miller FNP [address] [place] [phone] Nurse Practitioner Family Medicine 05/01/23 Cristhian Vaz MD [address] [place] [address] [address] [place] [address] Bariatrics 12/24/24 Eli Holcomb MD Rheumatology 09/01/24
--- OUTSIDE RECORDS SUMMARY | 2025-03-04 12:54 | XMS_ITS | Encounter Summary ---
Author Organization [employer] Address [address] [facility] 7[address] [place] [address] Care Team Providers Care Supply Teacher Name Role Phone Ginger Medel MD Primary Care Provider [phone] David Miller Unavailable Unavailable Cristhian Vaz MD Unavailable [phone] Encounter Details Date Type Department Care Team (Late st Contact Info) Description 07/25/2022 Abstract [facility] [address] [place], [place] [phone] Ginger Medel MD [address] [place], [place] [phone] Social History Tobacco Use Types Packs/Day Years [...] documented as of this encounter Care Teams Supply Teacher Relationship Specialty Start Date End Date Ginger Medel MD [address] [place] [address] PCP - General Family Medicine 06/18/18 David Miller FNP [address] [place] [address] Nurse Practitioner Family Medicine 05/01/23 Cristhian Vaz MD [address] [place] [phone] Bariatrics 12/24/24 Eli Holcomb MD Rheumatology 09/01/24 documented as of this encounter
--- OUTSIDE RECORDS SUMMARY | 2025-03-04 12:54 | XMS_ITS | Encounter Summary ---
Author Organization [facility] Address [address] [place] [address] Phone Care Team Providers Care Timber Management Technician Name Role Phone Ginger Medel MD Primary Care [facility] Encounter Details Date Type Department Care Team (Late st Contact Info) Description 11/08/2023 Procedure Pass OR Admitting Dept - Virtual Department [address] [place] [address] Social History Tobacco Use Types Packs/Day Years [...] filedocumented in this encounter Care Teams Timber Management Technician Relationship Specialty Start Date End Date [place], Ginger Torres MD [address] [place] [phone] PCP - General Family Medicine 08/24/23 documented as of this encounter Additional Source Comments The information contained in this document represents components of the legal health record. It is not the complete legal health record.[facility]
--- OUTSIDE RECORDS SUMMARY | 2025-03-04 12:55 | XMS_ITS | Encounter Summary ---
Author Organization [email or web address] Address [address] [facility] 7t [place] [address] Care Team Providers Care Mooner Name Role Phone Ginger Medel MD Primary Care Provider [phone] David Miller Unavailable Unavailable Cristhian Vaz MD Unavailable [phone] Encounter Details Date Type Department Care Team (Latest Contact Info) Description 03/04/2025 Travel Social History Tobacco Use Types Packs/Day Years [...] documented as of this encounter Care Teams Mooner Relationship Specialty Start Date End Date Ginger Medel MD [address] [place] [address] PCP - General Family Medicine 06/18/18 David Miller FNP [address] [place] [address] Nurse Practitioner Family Medicine 05/01/23 Cristhian Vaz MD [address] [place] [address] [place] [phone] Bariatrics 12/24/24 Eli Holcomb MD Rheumatology 09/01/24 documented as of this encounter
--- OUTSIDE RECORDS SUMMARY | 2025-03-04 12:55 | XMS_ITS | Clinical Summary ---
Author Organization [address] Address [address] [place] [address] Phone Care Team Providers Care Mft Name Role Phone Ginger Medel MD Primary Care Provider [phone] Allergies Active Allergy Reactions Criticality Noted Date Comments Adalimumab Rash 07/03/2019 Shellfish Containing Products Hives 2019 Medications acetaminophen (TYLENOL) 325 mg tablet Take 2 tablets (650 mg total) by mouth. Active acetaminophen (TYLENOL) 500 mg tablet Take 2 tablets (1,000 mg total) by mouth. 2 Active betamethasone dipropionate 0.05 % lotion Apply 5 to 10 drops to scalp twice a day if itchy 0 Active cyanocobalamin, vitamin B-12, 1,000 mcg tablet, sublingual Place 1,000 mcg under the tongue. 3 Active drospirenone-eth inyl estradiol-levome folate calcium (BEYNOHEMISANTY) 3-0.02-0.451 mg (24) (4) per tablet Take 1 tablet by mouth 1 (one) time each day. 0 Active gabapentin (NEURONTIN) 300 mg capsule Take 1 capsule (300 mg total) by mouth. Active mometasone (ELOCON) 0.1 % cream APLIQUE AL AREA AFECTADA DOS VECES AL JUSTINO CUANDO SEA NECESARIO FOR ECZEMA 0 Active pantoprazole (PROTONIX) 40 mg EC tablet Take 1 tablet (40 mg total) by mouth 1 (one) time each day. 2 Active polyethylene glycol (MIRALAX) 17 gram packet Take 17 g by mouth. 2 Active simethicone (MYLICON) 80 mg chewable tablet Chew 1 tablet (80 mg total). 2 Active ursodioL (ACTIGALL) 300 mg capsule Take 2 capsules (600 mg total) by mouth. 2 Active I8-rhuyolw-jzkh- O8-lsnjwa-AE 223-2-60-5-1.5 mg tablet Take 1 tablet by mouth 1 (one) time each day. 4 Active medroxyprogester one acetate (PROVERA ORAL) Take by mouth. Active multivitamin (MULTIPLE VITAMINS ORAL) Take 1 tablet by mouth 1 (one) time each day. 4 Active ONDANSETRON HCL ORAL Take 4 mg by mouth. 2 Active VITAMIN A ORAL Take 1 capsule by mouth. 4 Active wheat dextrin 3 gram/3.8 gram powder Take 4 g by mouth. 2 Active FeroSuL 325 mg (65 mg iron) tabletIndication s:Vitamin D deficiency TAKE 1 TABLET (325 MG TOTAL) BY MOUTH 1 (ONE) TIME EACH DAY. DO NOT CRUSH, CHEW, OR SPLIT. 30 tablet 5 Active topiramate (TOPAMAX) 50 mg tabletIndication s:Class 1 obesity due to excess calories with body mass index (BMI) of 32.0 to 32.9 in adult, unspecified whether serious comorbidity present TAKE 1 TABLET (50 MG TOTAL) BY MOUTH AT BEDTIME. 30 tablet 5 Active nystatin, bulk, 10 billion unit powder 1 each by Not Applicable route 2 (two) times a day. 1 each 5 025 Active tirzepatide, weight loss, (Zepbound) 10 mg/0.5 mL injection Inject 0.5 mL (10 mg total) under the skin every 7 (seven) days. 2 mL 5 025 Active nystatin, bulk, 10 billion unit powder 1 each by Not Applicable route. 4 025 Discontin ued(Reord er) Zepbound 10 mg/0.5 mL injection INJECT 0.5 ML (10 MG TOTAL) UNDER THE SKIN EVERY 7 (SEVEN) DAYS. 2 mL 5 09/05/2 025 Discontin ued(Reord er) Active Problems Problem Noted Date Diagnosed Date Skin laxity 12/05/2024 Intertrigo 12/05/2024 Status post panniculectomy 12/05/2024 Class 1 obesity with body ma ss index (BMI) of 32.0 to 32.9 in adult 10/14/2024 Encounters Date Type Department Care Team Description 02/20/2025 Telephone Bariatric Surgery [facility] 175 [facility] [address] [place] [phone] Cristhian Vaz MD 02/03/2025 9:00 AM EDT Office Visit Bariatric Surgery [facility] 175 [facility] [address] [place] [phone] Cristhian Vaz MD Over weight (Primary Dx); Rash, skin 12/29/2024 Telephone Bariatric Surgery [facility] 175 [facility] [address] [place] [phone] Cristhian Vaz MD 12/04/2024 3:00 PM EDT Consult Plastic & Reconstructive Surgery [facility] 300 [facility] [address] [place] [address] Sangeeta Pandey PA Skin laxity (Primary Dx); Intertrigo; Status post panniculectomy from Last 3 Months Surgical History Surgery Date Site/Laterality Comments GASTRIC BYPASS 08/2008 PROCEDURE: GASTRIC BYPASS FOR OBESIT; COMMENT: Liz-en-Y and small bowel resection TUBAL LIGATION 01/27/15 PROCEDURE: HISTORICAL TUBAL LIGATION; COMMENT: [facility] GASTRIC BYPASS 11/11/2021 PROCEDURE: [place] GASTRIC RSTCV W/BYP W/SM INT RCNSTJ LIMIT [...] (BMI) of 45.0 to 49.9 in adult ([facility] V24, [facility] V28) 03/06/2019 DX:Class 3 severe obesity due to excess calories with serious comorbidity and body mass index (BMI) of 45.0 to 49.9 in adult ([facility]) Iron deficiency anemia 09/22/2021 DX:Iron d eficiency anemia History of cervical dysplasia 09/22/2021 DX :History of cervical dysplasia; COMMENT: 03/20/12 Eating disorder, unspecified 09/22/2021 DX: Eating disorder, unspecified; COMMENT: Nu Newton PhD Family History Medical History Relation Name Comments Arthritis Maternal Grandmother Other cancer Mother thyroid cancer Breast cancer Mother's Sister Prostate cancer Paternal Grandmother Cervical cancer Neg Hx Colon cancer Neg Hx Ovarian cancer Neg Hx Relation Name Status Comments Maternal Grandmother Mother Mother's Sister Paternal Grandmother Social History Tobacco Use Types [...] Sexual Orientation Not on file Obstetrics History Para Term AB IAB SAB Ectopic Multiple Livin g Live Births 3 3 3 3 3 Date Outcome GA Total Labor Labor/2nd/3rd Weight Sex Type Anes PTL Akua A1 A5 Name Clin 009 Term 38w 0d 3232 g (114 oz) M Vag-S pont Epidur al N Livin g Delivery Location:[facility] 013 Term 39w 0d 3544 g (125 oz) M Vag-S pont None N Livin g Complications:Gestational di abetes mellitus (GDM) Delivery Location:[facility] 015 Term 40w 0d 3430 g (121 oz) F Vag-S pont None N Livin g Complications:Gestational di abetes mellitus (GDM) Delivery Location:[facility] Last Filed Vital Signs Vital Sign Reading Time Taken Comments Blood Pressure 106/62 02/03/2025 9:20 AM EDT Pulse 57 02/03/2025 9:20 AM EDT Temperature 36.7 C (98 F) 02/03/2025 9:20 AM EDT Respiratory Rate - - Oxygen Saturation - - Inhaled Oxygen Concentration - - Weight 73.5 kg (162 lb) 02/03/2025 9:20 AM EDT Height 161.3 cm (5' 3.5 ) 02/03/2025 9:20 AM EDT Body Mass Index 28.25 02/03/2025 9:20 AM EDT Plan of Treatment Upcoming Encounters Date Type Department Care Team (Late st Contact Info) Description 03/20/2025 9:30 AM EDT Telemedicine Bariatric Surgery [address] [phone] Karine Rogers, RD [address] [address] 07/30/2025 9:45 AM EST Office Visit Bariatric Surgery [address] [address] Cristhian Vaz MD [address] [place] [address] Scheduled Procedures Name Priority Associated Diagnoses Date/Ti me BRACHIOPLASTY Skin laxity Health Maintenance Due Date Last Done Comments Social Influencers of Health Screening 05/27/2022 Depression Screening 06/18/2024 Cervical Cancer Screening: Pap Smear 12/12/2024 12/12/2021 COVID-19 Vaccine ( season) 2025 04/19/2021, 08/21/2020, 07/31/2020 Influenza Vaccine (#1) 2025 , 03/16/2023, 04/06/2022, Additional history exists Breast Cancer Screening 11/14/2026 11/15/19, 11/08/2023, 11/07/2023 Cholesterol Screening (Lipid Panel) 10/28/2027 10/27/2022 DTaP,Tdap,and Td Vaccines (5 - Td or Tdap) 12/24/2034 12/24/2024, 08/14/2014, 02/11/2013, Additional history exists Hepatitis A Vaccines Aged Out 01/23/2012, 08/23/2011, [...] 5 Years) and At-Risk Patients (6 to 49 Years) Completed 12/24/2023, 06/14/2006 HIB Vaccines Aged [...] Procedure Name Priority Date/Time Associated Diagnosis Comments MG MAMMO DIGITAL SCREENING W ARTEM BILAT Routine 11/14/2024 10:12 AM EDT Encounter for screening mammogram for breast cancer PAP SMEAR Routine 12/12/2021 from Last 3 Months or Most Recently Relevant to Health Maintenance Results * MG Mammo Digital Screening w Artem bilat (11/14/2024 10:12 AM EDT) Anatomical Region Laterality Modality Breast Bilateral Mammography 11/15/2024 12:3 6 PM EDT Impressions 11/15/2024 12:41 PM EDT No mammographic evidence of malignancy. No suspicious interval change. A negative mammogram in the presence of a clinically suspicious palpable abnormality does not preclude the possibility of malignancy or alter the indications for biopsy. ASSESSMENT: BI-RADS 1: NEGATIVE RECOMMENDATION(S): 1: Routine screening mammogram BILATERAL in 1 year. [facility] [address], [address] -------- FINAL REPORT -------- Dictated By: Jordan Caballero Dictated Date: 11/15/2024 12:36 ET Assigned Physician: Jordan Caballero Reviewed and Electronically Signed By: Jordan Caballero Signed Date: 11/15/2024 12:41 ET Workstation ID: [id number] Transcribed By: Self Edit Transcribed Date: 11/15/2024 12:36 ET Narrative 11/15/2024 12:41 PM EDT EXAM: SCREENING MAMMOGRAPHY, BILATERAL HISTORY: SCREENING. Maternal aunt with history of breast cancer. COMPARISON: 11/07/23, 05/04/22 TECHNIQUE: Synthesized CC and MLO projections of each breast. Tomosynthesis of each breast in the CC and MLO projections. ADDITIONAL IMAGING: None Computer-aided detection was employed with the [employer] AI 3-D. TISSUE DENSITY: There are scattered areas of fibroglandular density. (BI-RADS category B) FINDINGS: RIGHT BREAST: No suspicious mass. No suspicious calcification. No distortion. No additional suspicious right breast findings LEFT BREAST: No suspicious mass. No suspicious calcification. No distortion. No additional suspicious left breast findings Procedure Note Jordan Caballero MD - 11/15/2024 EXAM: SCREENING MAMMOGRAPHY, BILATERAL HISTORY: SCREENING. Maternal aunt with history of breast cancer. COMPARISON: 11/07/23, 05/04/22 TECHNIQUE: Synthesized CC and MLO projections of each breast.Tomosynthesis of each breast in the CC and MLO projections. ADDITIONAL IMAGING: None Computer-aided detection was employed with the [employer] AI 3-D. TISSUE DENSITY: There are scattered areas of fibroglandular density.(BI-RADS category B) FINDINGS: RIGHT BREAST: No suspicious mass. No suspicious calcification. No distortion. Noadditional suspicious right breast findings LEFT BREAST: No suspicious mass. No suspicious calcification. No distortion. Noadditional suspicious left breast findings IMPRESSION: No mammographic evidence of malignancy. No suspicious interval change. A negative mammogram in the presence of a clinically suspicious palpableabnormality does not preclude the possibility of malignancy or alter theindications for biopsy. ASSESSMENT: BI-RADS 1: NEGATIVE RECOMMENDATION(S): 1: Routine screening mammogram BILATERAL in 1 year. [facility] location[facility] [address], [address] -------- FINAL REPORT -------- Dictated By: Jordan Caballero Dictated Date: 11/15/2024 12:36 ET Assigned Physician: Jordan Caballero Reviewed and Electronically Signed By: Jordan Caballero Signed Date: 11/15/2024 12:41 ET Workstation ID: [id number] Transcribed By: Self Edit Transcribed Date: 11/15/2024 12:36 ET us Self Referral Sppl IMG BI PROCEDURES Final Resul t * Pap smear (12/12/2021) 12/12/2021 Narrative HISTORICAL TESTING LAB RESULTING AGENCY - 12/20/2021 9:30 AM EDT [id number] THINPREP PAP, IMAGED: NEGATIVE FOR SQUAMOUS INTRAEPITHELIAL LESION AND MALIGNANCY . HANNAH BENAVIDES(ASCP) (CASE ELECTRONICALLY SIGNED 12 18 2021) RESULT OF APTIMA HIGH RISK HPV ASSAY: HIGH RISK HPV: NEGATIVE (SEROTYPES 16,18,31,33,35,39,45,51,52,56,58,59,66,68) COMPLETED ON 2021-12-14 ADEQUACY: SATISFACTORY ENDOCERVICAL/TRANSFORMATION ZONE COMPONENT PRESENT. SOURCE: THINPREP PAP HPV ANY DX: REFLEX 16 AND 18, CERVICAL, IMAGED CLINICAL INFORMATION: HPV ANY DIAGNOSIS. HORMONES, [Z01.419] Charlene Amos CNM LAB CYTOLOGY ORDERABLES Final R esult HISTORICAL TESTING LAB RESULTING AGENCY from Last 3 Months or Most Recently Relevant to Health Maintenance Insurance MEDICAID - [place] Care Teams Mft Relationship Specialty Start Date End Date [place], MD Ginger [address] [place] [phone] PCP - General Internal Medicine 10/22/14
--- OUTSIDE RECORDS SUMMARY | 2025-03-04 12:55 | XMS_ITS | Encounter Summary ---
Author Organization [employer] Address [address] [facility] 7t [place] [address] Care Team Providers Care Credit Review Analyst Name Role Phone Ginger Medel MD Primary Care Provider [phone] David Miller Unavailable Unavailable Cristhian Vaz MD Unavailable [phone] Reason for Visit * Reason Onset Date Comments Nurse Triage 03/03/2025 Encounter Details Date Type Department Care Team (Late st Contact Info) Description 03/03/2025 Telephone [facility] [address] [place], [place] [phone] Ginger Medel MD [address] [place], [place] [phone] Nurse Triage Social History Tobacco Use Types Packs/Day Years [...] AM EDT documented as of this encounter Miscellaneous Notes * Telephone Encounter - Renae Sosa RN - 03/03/2025 1:39 PM EDT Called pt. Via [facility] information assoc [phone] Wendy. Pt. States that she has a a lump on the left side of herneck between her neck and nape of neck x 1 week that is getting larger and painful to touch. No redness. Pt. States that sometimes she feels like there is fluid in her head . Pt. Denies any headacheor fever. Pt. Denies thoughts of fluid in her left ear but, does feel like ear is blocked. No sore throat. Pt. States that she is leaving in a few days for a retreat. Protocol Used: Skin Lump or Localized Swelling (Adult) Protocol-Based Disposition: See in Office 03/04/[address] Jackson Video visit offer not recorded Positive Triage Questions: * Swelling is painful to touch and no fever * Small swelling or lump present > 1 week * Patient wants to be seen * All higher-acuity triage questions were negative * Telephone Encounter - Cori Bragg - 03/03/2025 1:33 PM EDT Symptom: Skin Lump Outcome: Schedule an urgent appointment (within 4 hours) or talk to a nurse or provider soon Reason: Growing rapidly The caller accepted this outcome. Contact at pt [phone] (icelandic) documented in this encounter Plan of Treatment Not on file documented as of this encounter Visit Diagnoses Not on filedocumented in this encounter Additional Health Concerns Assessment Noted Time PHQ-9 Depression Total Score: 13 025 10:37 AM EDT documented as of this encounter Care Teams Credit Review Analyst Relationship Specialty Start Date End Date Ginger Medel MD [address] [place] [address] PCP - General Family Medicine 06/18/18 David Miller FNP [address] [place] [address] Nurse Practitioner Family Medicine 05/01/23 Cristhian Vaz MD [address] [place] [address] [place] [address] Bariatrics 12/24/24 Eli Holcomb MD Rheumatology 09/01/24 documented as of this encounter
--- OUTSIDE RECORDS SUMMARY | 2025-03-04 12:55 | XMS_ITS | Clinical Summary ---
Author Organization [facility] Address [address] [facility] [address] [place] [address] Phone Care Team Providers Care Sack Lifter Name Role Phone Ginger Medel MD Primary Care Provi regina Allergies Active Allergy Reactions Criticality Noted Date Comments Adalimumab Rash Low 09/03/2023 Fish Derived Rash Low 11/01/2023 Medications ARIPiprazole (ABILIFY) 10 MG tablet TOME YUDI TABLETA TODOS LOS D EN LA MA AISHA 4 Active cloNIDine HCL (CATAPRES) 0.1 MG tablet Take 1 tablet by mouth 2 (two) times a day. 4 Active nystatin (NYSTOP) powder APLIQUE AL KALE AFECTADA TOPICALLY TODOS LOS D CUANDO SEA NECESARIO FOR RASH 4 Active traZODone (DESYREL) 100 MG tablet TOME YUDI TABLETA POR V A ORAL AL ACOSTARSE 4 Active traZODone (DESYREL) 150 MG tablet TOME YUDI TABLETA POR V A ORAL AL ACOSTARSE 4 Active venlafaxine (EFFEXOR-XR) 150 MG 24 hr capsule TAKE 1 CAPSULE ORALLY ONCE DAILY WITH FOOD. DO NOT CRUSH OR CHEW. 4 Active gabapentin (NEURONTIN) 400 MG capsule Take 400 mg by mouth 3 (three) times a day. Active ondansetron (ZOFRAN) 4 MG tablet Take 1 tablet (4 mg total) by mouth every 8 (eight) hours as needed for nausea. 30 tablet 3 4 Active Additional Information Patient not taking.Reported on 04/08/2024 docusate sodium (COLACE) 100 MG capsule Take 1 capsule (100 mg total) by mouth 2 (two) times a day. 30 capsule 4 Active Additional Information Patient not taking.Reported on 04/08/2024 cyclobenzaprin e (FLEXERIL) 10 MG tablet Take 1 tablet (10 mg total) by mouth 3 (three) times a day as needed. 30 tablet 6 Active oxyCODONE-acet aminophen (PERCOCET) 5-325 mg per tablet Take 1 tablet by mouth every 4 (four) hours as needed for pain (specific location in comments). Partial fill ok 30 tablet Active Additional Information Patient not taking.Reported on 04/08/2024 ARNICA FLOWER, BULK, MISC by Miscellaneous route. Active Active Problems Problem Noted Date Diagnosed Date Status post panniculectomy 04/15/2024 Skin laxity 04/15/2024 Abdominal pannus 09/03/2023 Intertrigo 09/03/2023 Family History Medical History Relation Comments Cancer Mother Relation Status Comments Father Other Mother Alive Social History Tobacco Use Types Packs/Day Years [...] on file Sexual Orientation Not on file Last Filed Vital Signs Vital Sign Reading Time Taken Comments Blood Pressure 119/54 04/08/2024 9:43 AM EDT Pulse 56 04/08/2024 9:43 AM EDT Temperature 36.3 C (97.3 F) 11/08/2023 12:38 PM EDT Respiratory Rate 14 11/08/2023 12:38 PM EDT Oxygen Saturation 99% 11/08/2023 12:38 PM EDT Inhaled Oxygen Concentration - - Weight 83.2 kg (183 lb 6.4 oz) 04/08/2024 9:43 A M EDT Height 160 cm (5' 3 ) 04/08/2024 9:43 AM EDT Body Mass Index 32.49 04/08/2024 9:43 AM EDT Plan of Treatment Health Maintenance Due Date Last Done Comments DEPRESSION SCREENING 1995 HEPATITIS C SCREENING 11/05/2001 HIV ONE-TIME SCREENING (18-65 YEARS) 11/05/2001 SCREENING FOR DIABETES 11/05/2018 MAMMOGRAM 2023 Adult Td,Tdap Booster 08/14/2024 08/14/2014 , 02/11/2013, 03/20/2012 PAP SMEAR 12/12/2024 12/12/2021 INFLUENZA VACCINE (#1) 2025 , 04/06/2022, 03/07/2021, Additional history exists COVID-19 VACCINE ( season) 2025 04/19/2021, 08/21/2020, 07/31/2020 PNEUMOCOCCAL VACCINES (0-49 years) Aged Out 06/14/2006 No longer eligible based on patient's age to complete this topic HEPATITIS A VACCINES Aged Out 01/23/2012, 08/23/2011, 07/25/2011 No longer eligible based on patient's age to complete this topic SMOKING STATUS SCREENING (Once After 26 Yrs) Completed 11/01/2023 HIB VACCINES Aged Out No longer eligi ble based on patient's age to complete this topic MENINGOCOCCAL VACCINES (ACWY) Aged Out No longer eligible based on patient's age to complete this topic MENINGOCOCCAL VACCINES (B) Aged Out N o longer eligible based on patient's age to complete this topic Medical Devices Not on file Insurance C3 ACO C3 ACO C3 ACO Advance Directives For more information, please contact: [phone] (9AM - 5PM [place], Sunday-Sunday) * Full Code (Latest Code Status on File) Date Activated Date Inactivated Comments 11/08/2023 8:16 AM Question Answer Comments Code Status Confirmed With: Patient Care Teams Sack Lifter Relationship Specialty Start Date End Date Lizy, Ginger Torres MD [address] [place] [address] PCP - General Family Medicine 08/24/23 Additional Source Comments The information contained in this document represents components of the legal health record. It is not the complete legal health record.[facility]
--- OUTSIDE RECORDS SUMMARY | 2025-03-04 12:55 | XMS_ITS | Encounter Summary ---
Author Organization [employer] Address [address] [facility] 7t [place] [address] Care Team Providers Care Whale Fisherman Name Role Phone Ginger Medel MD Primary Care Provider [phone] David Miller Unavailable Unavailable Cristhian Vaz MD Unavailable [phone] Reason for Visit * Reason Comments Med Refill Encounter Details Date Type Department Care Team (Late st Contact Info) Description 07/11/2023 Refill [facility]INE [address] [place] [address] David Miller FNP Anxious depression Social History [...] documented as of this encounter Care Teams Whale Fisherman Relationship Specialty Start Date End Date Ginger Medel MD [address] [place] [address] PCP - General Family Medicine 06/18/18 David Miller FNP [address] [place] [address] Nurse Practitioner Family Medicine 05/01/23 Cristhian Vaz MD [address] [place] [address] [place] [address] Bariatrics 12/24/24 Eli Holcomb MD Rheumatology 09/01/24 documented as of this encounter
--- OUTSIDE RECORDS SUMMARY | 2025-03-04 12:55 | XMS_ITS | Encounter Summary ---
Author Organization [employer] Address [address] [facility] 7t [place] [address] Care Team Providers Care Outboard Motorboat Operator Name Role Phone Ginger Medel MD Primary Care Provider [phone] David Miller Unavailable Unavailable Cristhian Vaz MD Unavailable [phone] Reason for Visit * Reason Onset Date Comments CHART PREP 03/03/2025 Encounter Details Date Type Department Care Team (Late st Contact Info) Description 03/03/2025 Telephone [facility] MEDICINE [address] [place], [place] [phone] Judith Jackson MD [address] [place] [address] CHART PREP Social History Tobacco Use Types Packs/Day Years [...] encounter Miscellaneous Notes * Telephone Encounter - Dominguez Perez MA - 03/03/2025 7:33 PM EDT Chart Prep Labs: not applicable Images: not applicable Referrals: not applicable Vaccines due: Covid, Flu, and HPV Screenings: LMP Overdue care gaps: Not applicable documented in this encounter Plan of Treatment Not on file documented as of this encounter Visit Diagnoses Not on filedocumented in this encounter Additional Health Concerns Assessment Noted Time PHQ-9 Depression Total Score: 13 025 10:37 AM EDT documented as of this encounter Care Teams Outboard Motorboat Operator Relationship Specialty Start Date End Date Ginger Medel MD [address] [place] [address] PCP - General Family Medicine 06/18/18 David Miller FNP [address] [place] [address] Nurse Practitioner Family Medicine 05/01/23 Cristhian Vaz MD [address] [place] [address] Bariatrics 12/24/24 Eli Holcomb MD Rheumatology 09/01/24 documented as of this encounter
== END 2025-03-04 10:31 | disposition home or self-care (01) ==
LOC: HO.HHCL 10:30
PROVIDERS: PCP Family Medicine; Visit Provider Family Medicine
DX: R22.1 Localized swelling, mass and lump, neck (principal); R20.2 Paresthesia of skin; E55.9 Vitamin D deficiency, unspecified
CPT/HCPCS: 36415; 82306; 82607; 82746; 84443; 85025

== ENCOUNTER 2025-05-06 11:22 | Outpatient (REF) | payer MEDICAID, SELFPAY ==
[2025-05-06 13:08] LABS: MANUAL DIFF FLAG NO
[2025-05-06 13:33] LABS: Hematocrit 36.0 % (37.0-47.0); Hemoglobin 11.7 g/dl (12.0-16.0); Imm Gran Abs Auto 0.00 X10*3/uL (0.00-0.03); Imm Gran Pct Auto 0.0 % (0.0-0.4); Lymphocytes Absolute Auto 1.4 X10*3/uL (1.2-4.9); Mean Corpuscular HGB Conc 32.5 g/dl (31.0-35.0); Mean Corpuscular Hemoglobin 29.7 pg (27.0-33.0); Mean Corpuscular Volume 91.4 fL (80.0-98.0); NRBC Abs Auto 0.000 X10*3/uL (0.0-0.012); NRBC Pct Auto 0.0 /100WBC (0.0-0.2); Platelet Count 346 X10*3/uL (160-400); Red Blood Count 3.94 X10*6/uL (4.20-5.50); White Blood Count 3.8 X10*3/uL (4.8-10.8)
[2025-05-06 14:58] LABS: Alanine Aminotransferase 12 U/L (0-31); Albumin Level 4.4 g/dL (3.5-5.0); Alkaline Phosphatase 64 U/L (39-117); Anion Gap 9 (12-20); Aspartate Amino Transferase 20 U/L (5-31); Blood Urea Nitrogen 8 mg/dL (9-16); Calcium 9.1 mg/dL (8.4-10.2); Carbon Dioxide 27 mmol/L (22-29); Chloride 107 mmol/L (96-108); Estimated Glomerular Filt Rate > 60; Potassium 4.0 mmol/L (3.3-5.1); Sodium 139 mmol/L (135-145); Total Protein 7.0 g/dL (6.5-8.0)
== END 2025-05-06 11:23 | disposition home or self-care (01) ==
LOC: HO.10HDL 11:22
PROVIDERS: Visit Provider Student in an Organized Health Care Education/Training Program
DX: L40.50 Arthropathic psoriasis, unspecified (principal)
CPT/HCPCS: 36415; 80053; 85025; 85652; 86140

== ENCOUNTER 2025-05-08 10:32 | Outpatient (AMB) | payer MEDICAID, SELFPAY ==
--- NOTE | 2025-05-08 10:47 | A.OFFVIS_ITS ---
Vital Signs 05/08/25 10:51 Height 5 ft 3.5 in Weight 155 lb 3.287 oz BMI 27.1 BP 120/70 Blood Pressure Location Lt brachial Position Sitting Pulse 78 Pulse Source Pulse Oximeter Pulse Oximetry (%) 98 Oxygen Delivery Method Room Air Intake Visit Reasons: PsA Intake Note: Patient presents for PsA follow up. Allergies adalimumab (From HUMIRA) Allergy (Unknown, Verified 05/08/25 10:50) Rash seafood Allergy (Verified 05/08/25 10:50) RASH secukinumab (From Cosentyx) Allergy (Verified 05/08/25 10:50) Chest Pain HPI Comments Details: Patient is a 39-year-old female with chronic lower back pain, psoriasis and psoriatic arthritis here today for follow up Interval History: Patient last seen 01/07/25 with me - On Cosentyx 150mg every 4 week SC - saw pain management, scheduled for back injection but she cancelled due to anxiety - PsO controlled - Feels that the consentyx makes her tired. Has not taken the Consentyx since October due to insurance issues and feels her fatigue improved - Pain and swelling to the right DIP Today - On Cosentyx 150mg every 4 week SC - Restarted Consentyx - Symptoms better - Still has chronic pain - Complaining of neck pain and feels a knot/bump on the right upper neck Rheumatologic History: Psoriasis and psoriatic arthritis dx around 2009 erosive Humira- Discontinued due Rash Enbrel- 09/2017 - 09/2018 discontinued due to insurance change Xeljanz 11/03 - 04/06 - discontinued due to active disease on exam Cosentyx- 04/06 -10/08 DC due to chest pain, restarted afterwards chest pain likely unrelated to Cosentyx Current Rheumatology Medication(s): Cosentyx 150mg every 4 weeks SC Gabapentin 400mg tid daily PFSH Medical History (Reviewed 10/31/24 @ 09:15 by Theresa Pradhan, SAFEKEEPING CLERK, CORPORATE SAFETY COORDINATOR) Dermatitis Gestational diabetes mellitus Allergic urticaria Iron deficiency Seronegative arthritis History of PCOS Arthralgia Mass of finger Surgical History S/P panniculectomy Umbilical hernia History of tubal ligation H/O gastric bypass Family History Mother Thyroid cancer Hypertension Hx of cardiac pacemaker Social History Household Members: Family Housing: House Are you a primary multi care technician to a significant other at home: No Do you presently have visiting nurse or other home services: No 75 years or older and lives alone: No Alcohol intake: current Alcohol intake frequency: does not drink Patient Tobacco Use Status: Never used Tobacco e-Cigarette/Vaping Use: Never Used Review of Systems Narrative Review of Systems Constitutional: Denies fever, chills, weight loss ENT: Denies vision changes, eye pain or eye redness, dental caries, dry mouth GI: Denies nausea, vomiting, diarrhea, abdominal pain, change in BM Pulm: Denies SOB, ROMO, hemoptysis, wheezing Cards: Denies chest pain, palpitations Skin: Denies Raynaud's, rash, nail changes, photosensitivity, CONDUCTOR YARD: Denies headaches, weakness, paresthesias, recurrent falls MSK: as per HPI All other systems reviewed and are unremarkable except noted above Physical Exam Exam Exam: Vital signs reviewed Physical Examination CONSTITUITIONAL Patient alert and cooperative. Well appearing and in no apparent painful distress MSK Hands * Right Hand: Able to make a fist. Mild Swelling and flexion deformity noted to the right 2nd DIP with TTP. * Left Hand: Able to make a fist. No swelling or tenderness to palpation of these joints. Wrists * Right Wrist: Full ROM. 70 degrees of wrist flexion, 80 degrees of wrist extension. No swelling or TTP * Left Wrist: Full ROM. 70 degrees of wrist flexion, 80 degrees of wrist extension. No swelling or TTP Elbows * Right Elbow: Full ROM. No swelling or TTP. No TTP of the medial and lateral epicondyles * Left Elbow: Full ROM. No swelling or TTP. No TTP of the medial and lateral epicondyles Shoulders * Right shoulder: Full ROM. No swelling noted. No TTP of the AC joint, subacromial bursa or posterior shoulder * Left shoulder: Full ROM. No swelling noted. No TTP of the AC joint, subacromial bursa or posterior shoulder Knees * Right knee: Full ROM. No swelling noted. No TTP of the knee joint lie or pes anserine bursa * Left knee: Full ROM. No swelling noted. No TTP of the knee joint lie or pes anserine bursa. Ankles * Right ankle: Good ankle dorsiflexion and plantar flexion. No swelling. No TTP of the ankle joint. TTP of the Achilles tendon * Left ankle: Good ankle dorsiflexion and plantar flexion. No swelling. No TTP of the ankle joint Feet * Right foot: Negative squeeze test * Left foot: Negative squeeze test Tender points? * No tenderness to palpation of the bilateral trapezius, supraspinatus, anterior costochondral junctions, bilateral suboccipital muscle insertions SKIN No rashes Vital Signs: Last Vital Signs Pulse 78 05/08/25 10:51 BP 120/70 05/08/25 10:51 Pulse Ox 98 05/08/25 10:51 Oxygen Delivery Method Room Air 05/08/25 10:51 BMI result Body Mass Index 27.1 Results Reviewed Results Reviewed: Laboratory Tests 03/04/25 05/06/25 10:45 11:25 WBC 3.8 L RBC 3.94 L Hgb 11.7 L Hct 36.0 L Plt Count 346 ESR 14 Sodium 139 Potassium 4.0 Chloride 107 Carbon Dioxide 27 BUN 8 L Creatinine 0.58 AST 20 ALT 12 C-Reactive Protein 0.21 25-OH Vitamin D Total 25.2 L Laboratory Tests 01/02/25 10:31 Hepatitis A IgM Ab Nonreactive Hep Bs Antigen Negative Hep Bs Antibody NONREACTIVE Hep B Core Total Ab Nonreactive Hepatitis C Ab (EIA) Nonreactive TB Test (T-Spot) Com Negative XR Bilateral Hands 12/2024 Findings: RIGHT HAND: There is severe narrowing and marginal osteophytes with adjacent soft tissue swelling involving the DIP joint of the second digit, increased since the prior. There are no other areas of joint space narrowing. Bone mineral density is within normal limits. There is a focal erosion involving the radial margin of the distal articular surface of the scaphoid, and osteopenia on the ulnar side, unchanged. Subtle erosion at the base of the fourth metacarpal is unchanged. No other erosions are evident. Ulnar variance injured -4 mm. There is degenerative cystic change in the ulnar side of the lunate and ulnar styloid tip. LEFT HAND: Small marginal erosions are present along the radial side of the DIP joint of third digit, unchanged. There is a small chronic marginal erosion involving the radial base of the fourth proximal phalanx, unchanged. There is stable subtle osteopenia involving the radial margin of the distal articular surface of scaphoid. There are no new erosions. Joint spaces are preserved. There are no bony proliferative changes. There is no soft tissue swelling. IMPRESSION: Stable chronic erosions consistent with remission. Right hand: Possible abutment of ulnar styloid and lunate. Assessment & Plan Assessment & Plan (1) Psoriatic arthritis: Comment: dx around 2009 erosive Humira- Discontinued due Rash Enbrel- 09/2017 - 09/2018 discontinued due to insurance change Xeljanz 11/03 - 04/06 - discontinued due to active disease on exam Cosentyx- 04/06 -10/08 DC due to chest pain, restarted afterwards chest pain likely unrelated to Cosentyx Code(s): L40.50 - Arthropathic psoriasis, unspecified Category: Medical Plan: #PsA/PsO Patient is a 39-year-old female with psoriasis complicated by psoriatic arthritis. Disease is overall stable today Still has TTP and swelling of the right 2nd DIP, likley due to damage Offered steroid injection but patient deferred Will refer to hand surgery for further therapeutic options Plan - Cosentyx 150mg SC every 4 weeks - Gabapentin 400mg tid - Check Hand XR bilaterally - RTC 4 months - Labs before follow up: CBC, CMP, ESR, CRP (2) Chronic lower back pain: Code(s): M54.50 - Low back pain, unspecified; G89.29 - Other chronic pain Category: Medical Qualifiers: Back pain laterality: midline Sciatica presence: without sciatica Qualified Code(s): M54.50 - Low back pain, unspecified; G89.29 - Other chronic pain Plan: #Chronic low back pain Patient with known chronic low back pain but now having worsening. 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 ?Risks include infections, injection site reactions, activation of inflammatory bowel disease. Benefits include improved disease activity. Discussed with patient that if she is feeling sick or having flu-like symptoms she is to hold the medication that week and resolved the following week. Plan I spent 30 minutes reviewing the record and labs, taking a history, examining the patient, discussing the treatment plan, ordering diagnostic work up, and documenting in the medical record Coding Level of Care Code Est Pt Level 4 (93764) Complex visit Add On G2211 Diagnoses Psoriatic arthritis L40.50 Chronic midline low back pain without sciatica M54.50; G89.29 Back pain laterality: midline Sciatica presence: without sciatica skilled nursing (current) use of immunosuppressive biologic Z79.620
[2025-05-08 10:51] VITALS: BP 120/70; PULSE 78; O2SAT 98; BMI 27.1
--- OUTSIDE RECORDS SUMMARY | 2025-05-08 11:15 | XMS_ITS | Encounter Summary ---
Author Organization [employer] Address [address] [facility] 7t [place] [address] Care Team Providers Care Casting Agent Name Role Phone Ginger Medel MD Primary Care Provider [phone] David Miller Unavailable Unavailable Cristhian Vaz MD Unavailable [phone] Reason for Visit * Reason Onset Date Comments Results 03/04/2025 Encounter Details Date Type Department Care Team (Late st Contact Info) Description 03/04/2025 Results Follow-Up [facility] MEDICINE [address] [place], [place] [phone] Judith Jackson MD [address] [place] [address] CBC auto differential, Vitamin B12 (Cobalamin) and Folate Panel, Serum, TSH with Reflex to Free T4, Vitamin D, 25-Hydroxy, Total, Immunoassay Social History Tobacco Use Types Packs/Day Years [...] encounter Miscellaneous Notes * Telephone Encounter - Carisa Tapia RN - 03/04/2025 3:43 PM EDT TC placed to the pt with BLS ecommerce merchandising manager #[id number] to inform of lab results below showing mildly low vitamin D levels. The pt confirmed that she is taking her MVI but has not been taking any supplementation of vit D. The pt was agreeable to starting on the vitamin D 1000 units daily and advised that this will be sent to PCP to prescribe. Pt also informed of stable anemia and normal thyroid function. ----- Message from Judith Jackson MD sent at 03/04/2025 3:40 PM EDT ----- Please inform patient that her vitamin D is mildly low. Improved from previous lab. Anemia is stable. Continue MVI. Please check if patient is currently taking any vitamin D supplement. If not, please inform her that we will be prescribing vitamin D 1000 units daily (and cue to me). Please reassure her that thyroid function was normal. Thank you. ----- Message ----- From: Interface, Lab Results In Sent: 03/04/2025 11:33 AM EDT To: Judith Jackson MD documented in this encounter Plan of Treatment Not on file documented as of this encounter Visit Diagnoses Not on filedocumented in this encounter Additional Health Concerns Assessment Noted Time PHQ-9 Depression Total Score: 13 025 10:37 AM EDT documented as of this encounter Care Teams Casting Agent Relationship Specialty Start Date End Date Ginger Medel MD [address] [place] [address] PCP - General Family Medicine 06/18/18 David Miller FNP [address] [place] [address] Nurse Practitioner Family Medicine 05/01/23 Cristhian Vaz MD [address] [place] [address] Bariatrics 12/24/24 Eli Holcomb MD Rheumatology 09/01/24 documented as of this encounter
--- OUTSIDE RECORDS SUMMARY | 2025-05-08 11:15 | XMS_ITS | Encounter Summary ---
Author Organization [employer] Address [address] [facility] 7t [place] [address] Care Team Providers Care Canvas Goods Maker Name Role Phone Ginger Medel MD Primary Care Provider [phone] David Miller Unavailable Unavailable Cristhian Vaz MD Unavailable [phone] Encounter Details Date Type Department Care Team (Late st Contact Info) Description 03/06/2025 Orders Only [facility] MEDICINE [address] [place], [place] [phone] Judith Jackson MD [address] [place], [place] [phone] Social History Tobacco Use Types Packs/Day Years [...] documented as of this encounter Care Teams Canvas Goods Maker Relationship Specialty Start Date End Date Ginger Medel MD [address] [place] [address] PCP - General Family Medicine 06/18/18 David Miller FNP [address] [place] [address] Nurse Practitioner Family Medicine 05/01/23 Cristhian Vaz MD [address] [place] [address] [place] [address] Bariatrics 12/24/24 Eli Holcomb MD Rheumatology 09/01/24 documented as of this encounter
--- OUTSIDE RECORDS SUMMARY | 2025-05-08 11:15 | XMS_ITS | Clinical Summary ---
Author Organization [employer] Address [address] [facility] 7[address] [place] [address] Care Team Providers Care Pool Attendant Name Role Phone Ginger Medel MD Primary Care Provider [phone] David Miller Unavailable Unavailable Cristhian Vaz MD Unavailable [phone] Allergies Active Allergy Reactions Criticality Noted Date Comments Adalimumab Rash Low 07/23/2017 Other reaction(s): Rash Fish Protein-Containing Drug Products Rash Low 11/01/2023 Shellfish Allergy 10/23/2022 Medications * This document contains information received from the source organization and may not represent a complete record from that organization. hydrOXYzine HCl (Atarax) 10 MG tabletIndicatio ns:Anxious depression TAKE 1 TO 2 TABLETS BY MOUTH EVERY 6 HOURS IF NEEDED FOR ANXIETY 200 tablet 5 4 Active venlafaxine XR (Effexor XR) 150 MG 24 hr capsuleIndicati ons:Anxious depression Take 1 capsule orally once daily with food. Do not crush or chew. 90 capsule 3 4 Active cyclobenzaprine (Flexeril) 10 MG tabletIndicatio ns:Psoriatic arthritis mutilans (CMS/HCC) (HCC) Take 10 mg by mouth if needed in the morning, at noon, and at bedtime. 4 Active gabapentin (Neurontin) 400 MG capsuleIndicati ons:Psoriatic arthritis mutilans (CMS/HCC) (HCC) Take 400 mg by mouth 3 times daily. Active Multiple Vitamin (multivitamin) capsuleIndicati ons:Hx of gastric bypass Take 1 capsule by mouth Once per day. Active Tirzepatide-Brice ght Management (Zepbound) 7.5 MG/0.5ML solutionIndicat ions:Class 1 obesity due to excess calories with serious comorbidity and body mass index (BMI) of 30.0 to 30.9 in adult Inject under the skin. Active Multiple Vitamins-Minera ls (Nicazel) tabletIndicatio ns:Class 1 obesity due to excess calories with serious comorbidity and body mass index (BMI) of 30.0 to 30.9 in adult Take 1 tablet by mouth Once per day. 4 Active Secukinumab (Cosentyx) 75 MG/0.5ML solution prefilled syringeIndicati ons:Psoriatic arthritis mutilans (CMS/HCC) (HCC) Inject under the skin. Active cloNIDine (Catapres) 0.1 MG tabletIndicatio ns:Anxious depression Take 1 tablet (0.1 mg) by mouth 2 times daily. 180 tablet 3 5 Active cholecalciferol (Vitamin D-3) 25 MCG (1000 UT) tablet Take 1 tablet (25 mcg) by mouth Once per day. 90 tablet 3 5 Active ARIPiprazole (Abilify) 10 MG tabletIndicatio ns:Anxious depression TAKE 1 TABLET BY MOUTH EVERY DAY 90 tablet 5 Active traZODone (Desyrel) 150 MG tabletIndicatio ns:Anxious depression TAKE 1 TABLET BY MOUTH AT BEDTIME 90 tablet 5 Active ARIPiprazole (Abilify) 10 MG tabletIndicatio ns:Anxious depression TAKE 1 TABLET BY MOUTH EVERY DAY 90 tablet 5 025 Discontinued traZODone (Desyrel) 150 MG tabletIndicatio ns:Anxious depression TAKE 1 TABLET BY MOUTH AT BEDTIME 90 tablet 5 025 Discontinued Active Problems Problem Noted Date [...] after 12/25/23 -eye care facilitated by in [facility] is in [facility] proxy given and filled 12/21/23 Assessment & Plan (12/24/2024 1:59 PM EDT): -next comprehensive annual evaluation due after 12/25/23 -eye care facilitated by in [facility] is in [facility] proxy given and filled 12/21/23 Assessment & Plan (12/24/2023 9:18 AM EDT): -next physical exam due after 12/23/2024 -eye care facilitated by in [facility] is in [facility] proxy given and filled Recurrent major depressive disorder, in partial remission 07/12/2023 Assessment & Plan (12/24/2024 1:59 PM [...] also takes Gabapentin 400 mg TID per Fishing Rod Assembler. She has discontinued with her therapist. May request new referral in the future if interested. Since this provider will be retiring, patient is now referred back to PCP for further medication management. Any issues or concerns, call [facility]. All her questions were answered and I have wished her well. She agrees with the plan. Assessment & Plan (10/18/2023 1:53 PM EDT): Generally doing OK. Continue current medications: Trazodone 150 mg at bedtime, Abilify 10 mg daily, Venlafaxine 150 mg daily, Clonidine 0.1 mg BID, and Hydroxyzine 10 mg prn anxiety. She also takes Gabapentin 400 mg TID per Fishing Rod Assembler. She will F/u with her therapist. F/U [...] also takes Gabapentin 400 mg TID per Fishing Rod Assembler. She will F/u with Integrated clinician as [...] also takes Gabapentin 400 mg TID per Fishing Rod Assembler. She will F/u with Integrated clinician. On [...] on 11/11/21. -Doing well. 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 Vitamin D deficiency 04/03/2013 Overview (12/21/2023): Assessment & Plan (03/16/2025 6:12 AM EDT): Addendum: The lab came back slightly low. Will restart vitamin D supplementation Dysplasia of cervix 03/20/2012 Overview (12/24/2023): -Distant hx of dysplasia of cervix. Per [facility] office, last pap was normal 11/2021. Assessment & Plan (12/24/2023 8:58 AM EDT): -Distant hx of dysplasia of cervix. [facility], [facility] was normal 11/2021. Assessment & Plan (10/24/2022 7:15 AM EDT): -Distant hx of dysplasia of cervix. Per [facility] office, last pap was normal 11/2021. We [...] (10/24/2022 7:17 AM EDT): -We called her [employer]ARDNESS INSPECTOR, last PAP was 11/2021, NILM HPV negative. [...] Health Integration Plan Internal Follow up with [facility] Assessment & Plan (05/01/2023 9:53 [...] also takes Gabapentin 400 mg TID per Fishing Rod Assembler. F/U with me in 6-8 weeks. She [...] also takes Gabapentin 400 mg TID per Fishing Rod Assembler. F/U with me in 4-6 weeks. She [...] also takes Gabapentin 400 mg TID per Fishing Rod Assembler. F/U with me in 2-3 months. 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 Orders Only [address] [id number] Judith Jackson MD 03/04/2025 9:45 AM EDT Office Visit [address] [address] Judith Jackson MD Lump on neck (Primary Dx); Paresthesia; Vitamin D deficiency 03/04/2025 Results Follow-Up [address] [address] Judith Jackson MD CBC auto differential, Vitamin B12 (Cobalamin) and Folate Panel, Serum, TSH with Reflex to Free T4, Vitamin D, 25-Hydroxy, Total, Immunoassay 03/04/2025 Travel 03/03/[address] [id number] Judith Jackson MD CHART PREP 03/03/[address] [address] Ginger Medel MD Nurse Triage from Last 3 Months Immunizations Immunization Administration [...] Vaccine ( season) 2025 04/19/2021, 08/21/2020, 07/31/2020 Depression Monitoring 06/26/2025 12/24/2024, 025 SDOH Screening 12/16/2025 12/16/2024 Alcohol/Substance Use Screening 12/24/2025 12/24/2024 Disability Screening 12/24/2025 12/24/2024 Family Planning (PISQ) 12/24/2025 12/24/2024 Tobacco Screening 03/04/2026 03/04/2025 Mammogram 11/14/2026 11/14/2024, 10/18, 05/04/2022, Additional history exists Cervical Cancer Screening 11/16/2026 HPV/Cotest 11/16/2026 11/16/2021 [...] 01/02/2025 , 10/27/2022, 10/05/2022, Additional history exists Influenza Vaccine Completed 04/14/2025, , 03/16/2023, Additional history exists HIB Vaccines Aged Out [...] 10:45 AM EDT Lump on neck Paresthesia HEPATITIS PANEL, GENERAL Routine 01/02/2025 10:31 AM EDT HIV 1/2 [...] Vitamin D 25-OH Total 25.2(L) >30 ng/mL [facility] Comment: Health Based Reference Values*< 20 ng/mL Oaellsiwg83-78 ng/mL Insufficient> 30 ng/mL Sufficient*Nguyen PENA. N [...] 10:45 AM EDT 03/04/2025 11:14 AM EDT Judith Jackson MD LAB BLOOD ORDERABLES Final Resul t Performing Organization Address [facility] Co de Phone Number [facility] [address] [place] [phone] * Vitamin B12 (Cobalamin) and Folate Panel, Serum (03/04/2025 10:45 AM EDT) Vitamin B12 631 200 - 900 pg/mL [facility] Comment:NORMAL 200-900 PG/ML INDETERMINATE 160-199 PG/ML DEFICIENT < 160 PG/ML Folate 12.5 > or = 4.0 ng/mL [facility] Comment:Reference Values:> o r = 4.0 ng/mL< 4.0 ng/mL suggests folate deficiency Methotrexate, aminopterin and folinic acid(leucovorin) are chemotherapeutic agents whose molecularstructures are similar to folate; therefore, the Architectfolate assay cannot be used for patients using these drugs. Blood 03/04/2025 10:4 5 AM EDT 03/04/2025 11:14 AM EDT Judith Jackson MD LAB BLOOD ORDERABLES Final Resul t Performing Organization Address [facility] Co de Phone Number [facility] [address] [place] [phone] * TSH with Reflex to Free T4 (03/04/2025 10:45 AM EDT) TSH reflex Free T4 0.66 0.32 - 4.0 uIU/mL [facility] Blood 03/04/2025 10:4 5 AM EDT 03/04/2025 11:14 AM EDT us Judith Jackson MD LAB BLOOD ORDERABLES Final Resul t [facility] [address] [place] [phone] * (ABNORMAL) CBC auto differential (03/04/2025 10:45 AM EDT) White Blood Count 3.7(L) 4.8 - 10.8 X10*3/uL [facility] Red Blood Count 3.86(L) 4.20 - 5.50 X10*6/uL [facility] Hemoglobin 11.7(L) 12.0 - 16.0 g/dl [facility] Hematocrit 34.4(L) 37.0 - 47.0 % [facility] Mean Corpuscular Volume 89.1 80.0 - 98.0 fL [facility] Mean Corpuscular Hemoglobin 30.3 27.0 - 33.0 pg [facility] Mean Corpuscular HGB Conc 34.0 31.0 - 35.0 g/dl [facility] Red Cell Distribution Width 13.3 11.0 - 16.0 % [facility] Platelet Count 279 160 - 400 X10*3/uL [facility] Mean Platelet Volume 10.5 9.4 - 12.3 fL [facility] Neutrophils Percent Auto 51.7 45 - 73 % [facility] Imm Gran Pct Auto 0.3 0.0 - 0.4 % [facility] Lymphocytes Percent Auto 35.2 20 - 40 % [facility] Monocytes Percent Auto 7.4 2 - 11 % [facility] Eosinophils Percent Auto 4.9(H) 0 - 4 % [facility] Basophils Percent Auto 0.5 0 - 2 % [facility] NRBC Pct Auto 0.0 0.0 - 0.2 /100WBC [facility] Neutrophils Absolute Auto 1.9(L) 2.0 - 8.3 x10*3/uL [facility] Imm Gran Abs Auto 0.01 0.00 - 0.03 X10*3/uL [facility] Lymphocytes Absolute Auto 1.3 1.2 - 4.9 X10*3/uL [facility] Monocytes Absolute Auto 0.3 0.1 - 1.2 X10*3/uL [facility] Eosinophils Absolute Auto 0.2 0.0 - 0.4 X10*3/uL [facility] Basophils Absolute Auto 0.0 0.0 - 0.2 X10*3/uL [facility] NRBC Abs Auto 0.000 0.0 - 0.012 X10*3/uL [facility] Blood Venous blood specimen / Unknown 03/04/2025 10:45 AM EDT 03/04/2025 11:14 AM EDT us Judith Jackson MD LAB BLOOD ORDERABLES Final Resul t [facility] [address] [place] [phone] * Hepatitis Panel, General (01/02/2025 10:31 AM EDT) Hepatitis A IgM Nonreactive Nonreactive [facility] Comment:IgM antibodies to FORTUNE V not detected; does not exclude earlyacute or recovered HAV infection. ~Hepatitis B Surface Antibody NONREACTIVE Nonreactive [facility] Comment:Nonreactive: < 8.00 mIU/mL Hepatitis B Core Antibody Nonreactive Nonreactive [facility] Hepatitis C Antibody Nonreactive Nonreactive [facility] Comment:Antibodies to HCV no t detected; does not exclude early acuteHCV infection. Hepatitis B Surface Ag Negative Negative [facility] 01/02/2025 10:3 1 AM EDT 01/02/2025 10:31 AM EDT Generic External Data Provider LAB BLOOD ORDERAB LES Final Result Performing Organization Address City/[facility]/ZIP Co de Phone Number [facility] [address] [place] [phone] * HIV-1/2 Antigen and Antibodies, Fourth Generation, with Reflexes (10/27/2022 9:47 AM EDT) Pathologist [facility] HIV Antigen/Antibody, 4th Generation NON-REAC TIVE NON-REAC TIVE [facility] [place] [facility] Comment: HIV-1 antigen and HIV-1/HIV-2 antibodies [...] purpose. For additional information please refer to http://education.[employer]/faq/EWZ282 (This link is being provided for informational/ educational purposes only.) The performance of this assay has not been clinically validated in patients less than 2 years old. Blood Venous blood specimen / Unknown 10/27/2022 9:47 AM EDT 10/27/2022 9:47 AM EDT Narrative [facility] - 11/02/2022 2:24 PM EDT FASTING:YES FASTING: YES us Ginger Medel MD LAB BLOOD ORDERABLES Final Result [facility] [address], [place] [phone] [facility] [place] [facility] [address] [place] [phone] * Lipid Panel, Standard (10/27/2022 9:47 AM EDT) Pathologist [facility] Cholesterol, Total 176 <200 mg/dL [facility] [employer] HDL Cholesterol 74 > OR = 50 mg/dL [facility] Triglycerides 57 <150 mg/dL [facility] LDL Cholesterol 88 mg/dL (calc) [facility] Comment: Reference range: <100 Desirable range <100 mg/dL for primary prevention; <70 mg/dL for patients with CHD or diabetic patients with > or = 2 CHD risk factors. LDL-C is now calculated using the Kathleen calculation, which is a validated novel method providing better accuracy than the Friedewald equation in the estimation of LDL-C. Filemon SS et al. TATYANA. 2013;310(59): 4194-1492 (http://education.[employer]faq/TMN908) Chol/HDLC Ratio 2.4 <5.0 (calc) [facility] Non-HDL Cholesterol 102 <130 mg/dL (calc) [facility] Comment: For patients with diabetes plus 1 major ASCVD risk factor, treating to a non-HDL-C goal of <100 mg/dL (LDL-C of <70 mg/dL) is considered a therapeutic option. Blood Venous blood specimen / Unknown 10/27/2022 9:47 AM EDT 10/27/2022 9:47 AM EDT Narrative [facility] - 11/02/2022 2:24 PM EDT FASTING:YES FASTING: YES Ginger Medel MD LAB BLOOD ORDERABLES Final Result [facility] [address], [place] [phone] [facility] [address] [place] [address] * Mammography Report 1 (05/04/2022 9:53 AM [...] neg (age 30+) (11/16/2021 12:00 AM EDT) us Historical Provider LAB PATHOLOGY ORDERABLES Final Result IMAGING from Last 3 Months or Most Recently Relevant to Health Maintenance Insurance [employer] Care Teams Pool Attendant Relationship Specialty Start Date End Date Ginger Medel MD [address] [place] [phone] PCP - General Family Medicine 06/18/18 David Miller FNP [address] [place] [address] Nurse Practitioner Family Medicine 05/01/23 Cristhian Vaz MD [address] [address] Bariatrics 12/24/24 Eli Holcomb MD Rheumatology 09/01/24
--- OUTSIDE RECORDS SUMMARY | 2025-05-08 11:15 | XMS_ITS | Encounter Summary ---
Author Organization [employer] Address [address] [facility] [address] [place] [address] Care Team Providers Care String Winding Machine Operator Name Role Phone Ginger Medel MD Primary Care Provider [phone] David Miller Unavailable Unavailable Cristhian Vaz MD Unavailable [phone] Encounter Details Date Type Department Care Team (Late st Contact Info) Description 07/25/2022 Abstract [facility] [address] [place], [place] [phone] Ginger Medel MD [address] [place], [place] [phone] Social History Tobacco Use Types Packs/Day Years [...] documented as of this encounter Care Teams String Winding Machine Operator Relationship Specialty Start Date End Date Ginger Medel MD [address] [place] [address] PCP - General Family Medicine 06/18/18 David Miller FNP [address] [place] [address] Nurse Practitioner Family Medicine 05/01/23 Cristhian Vaz MD [address] [place] [phone] Bariatrics 12/24/24 Eli Holcomb MD Rheumatology 09/01/24 documented as of this encounter
--- OUTSIDE RECORDS SUMMARY | 2025-05-08 11:15 | XMS_ITS | Clinical Summary ---
Author Organization [facility] Address [address] [facility] [address] [place] [phone] Phone Care Team Providers Care Welder Shielded Metal Arc Name Role Phone Ginger Medel MD Primary Care Provi regina Allergies Active Allergy Reactions Criticality Noted Date Comments Adalimumab Rash Low 09/03/2023 Fish Derived Rash Low 11/01/2023 Medications ARIPiprazole (ABILIFY) 10 MG tablet TOME YDUI TABLETA TODOS LOS D EN LA MA [...] Advance Directives For more information, please contact: [phone] (9AM - 5PM [place], Sunday-Sunday) * Full Code (Latest Code Status on File) Date Activated Date Inactivated Comments 11/08/2023 8:16 AM Question Answer Comments Code Status Confirmed With: Patient Care Teams Welder Shielded Metal Arc Relationship Specialty Start Date End Date Compton, Ginger Torres MD [address] [place] [phone] PCP - General Family Medicine 08/24/23 Additional Source Comments The information contained in this document represents components of the legal health record. It is not the complete legal health record.[facility]
--- OUTSIDE RECORDS SUMMARY | 2025-05-08 11:15 | XMS_ITS | Encounter Summary ---
Author Organization [facility] Address [address] [place] [address] Care Team Providers Care Financial Aid Administrator Name Role Phone Ginger Medel MD Primary Care Provider [phone] Reason for Visit * Reason Onset Date Comments Advice Only 04/23/2025 Zofran Encounter Details Date Type Department Care Team (Late Contact Info) Description 04/23/2025 Telephone Bariatric Surgery [address] [phone] Cristhian Vaz MD [address] [place] [address] Social History Tobacco Use Types Packs/Day Years [...] encounter Progress Notes * Abeba Juarez - 04/23/2025 11:24 AM EST The patient is initiating Zepbound 12.5 mg after a three-week break and is requesting a prescription for Zofran as a precautionary measure. documented in this encounter Plan of Treatment Upcoming Encounters Date Type Department Care Team ([facility] Contact Info) Description 07/30/2025 9:45 AM EST Office Visit Bariatric Surgery [address] [phone] Cristhian Vaz MD [address] [place] [phone] Scheduled Procedures Name Priority Associated Diagnoses Date/Ti me BRACHIOPLASTY Skin laxity documented as of this encounter Visit Diagnoses Not on filedocumented in this encounter Care Teams Financial Aid Administrator Relationship Specialty Start Date End Date Ginger Medel MD [address] [place] [phone] PCP - General Internal Medicine 10/22/14 documented as of this encounter
--- OUTSIDE RECORDS SUMMARY | 2025-05-08 11:15 | XMS_ITS | Clinical Summary ---
Author Organization [address] Address [address] [place] [address] Phone Care Team Providers Care Diver Helper Name Role Phone Ginger Medel MD Primary Care Provider [phone] Allergies Active Allergy Reactions Criticality Noted Date [...] 23 Active drospirenone-eth inyl estradiol-levome folate calcium (BEYNOHEMISANTY) 3-0.02-0.451 mg (24) (4) per tablet Take 1 tablet by mouth 1 (one) time each day. 04/19/20 20 Active gabapentin (NEURONTIN) 300 mg capsule Take 1 capsule (300 mg total) by mouth. Active mometasone (ELOCON) 0.1 % cream APLIQUE AL AREA AFECTADA DOS VECES AL JUSTINO CUANDO SEA NECESARIO FOR ECZEMA 03/18/20 20 Active pantoprazole (PROTONIX) 40 mg EC tablet Take 1 tablet (40 mg total) by mouth 1 (one) time each day. 10/26/19 22 Active polyethylene glycol (MIRALAX) 17 gram packet Take 17 g by mouth. 10/26/19 22 Active simethicone (MYLICON) 80 mg chewable tablet Chew 1 tablet (80 mg total). 10/26/19 Active ursodioL (ACTIGALL) 300 mg capsule Take 2 capsules (600 mg total) by mouth. 10/26/19 Active H2-oeftpqh-zlxg- D5-fsrhqf-QH 405-7-91-5-1.5 mg tablet Take 1 tablet by mouth 1 (one) time each day. 08/23/19 Active medroxyprogester one acetate (PROVERA ORAL) Take by mouth. Active multivitamin (MULTIPLE VITAMINS ORAL) Take 1 tablet by mouth 1 (one) time each day. 08/23/19 Active VITAMIN A ORAL Take 1 capsule by mouth. 08/29/19 Active wheat dextrin 3 gram/3.8 gram powder Take 4 g by mouth. 10/26/19 Active FeroSuL 325 mg (65 mg iron) [...] MOUTH AT BEDTIME. 30 tablet 09/23/19 25 Active ondansetron (ZOFRAN) 4 mg tabletIndication s:Nausea Take 1 tablet (4 mg total) by mouth every 8 (eight) hours if needed for nausea for up to 24 doses. 12 tablet 1 04/27/20 25 Active ONDANSETRON HCL ORAL Take 4 mg by mouth. 10/26/19 22 025 Discontinu ed(Reorder ) nystatin, bulk, 10 billion unit powder 1 each by Not Applicable route 2 (two) times a day. 1 each 02/04/20 25 025 tirzepatide, weight loss, (Zepbound) 12.5 mg/0.5 mL injection Inject 0.5 mL (12.5 mg total) under the skin every 7 (seven) days for 28 days. 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/23/2022 Overview (04/20/2025): - Pt followed by rheumatology Lilo Aguirre [...] insurance/pharmacy about why patient not getting medication Eating disorder, unspecified 09/22/2021 Overview (04/20/2025): Nu Newton PhD RA (rheumatoid arthritis) ([facility] V24, [facility] V28) 03/19/2018 Asthma 11/17/2014 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 Per [facility], last pap was normal 11/2021. PCOS (polycystic ovarian syndrome) 03/20/2012 Mild intermittent asthma without complication Overview (04/20/2025): Well controlled. It is possible she does not have asthma or only with URIs. PFTs revealed very mild degree of restrictive pulmonary disorder, which may be consistent with obesity. A very mild degree of small airway obstructive disorder, which may not be significant. Encounters Date Type Department Care Team Description 04/23/2025 Telephone Bariatric Surgery [facility] [address] [id number] Cristhian Vaz MD 04/20/2025 Telephone Bariatric Surgery [facility] [address] [phone] Cristhian Vaz MD 04/03/2025 Telephone Bariatric Surgery [facility] [address] [phone] Cristhian Vaz MD 03/27/2025 Telephone Bariatric Surgery [facility] [address] [address] Cristhian Vaz MD 03/26/2025 Telephone [facility]astic & Re[facility] - [place] [address] [place] [address] Ruthann Donaldson MA 03/16/2025 Telephone Bariatric Surgery - [place] 175 [facility] [address] [place] [address] Cristhian Vaz MD 02/20/2025 Telephone Bariatric Surgery - [place] 175 [facility] [address] [place] [address] Cristhian Vaz MD from Last 3 Months Surgical History Surgery Date Site/Laterality Comments GASTRIC BYPASS 08/2008 PROCEDURE: GASTRIC BYPASS FOR OBESIT; COMMENT: Liz-en-Y and small bowel resection TUBAL LIGATION 01/27/15 PROCEDURE: HISTORICAL TUBAL LIGATION; COMMENT: [facility] GASTRIC BYPASS 11/11/2021 PROCEDURE: ND GASTRIC RSTCV W/BYP W/SM INT RCNSTJ LIMIT ABSRPJ Medical History Medical History Date Comments H/O bariatric surgery 2016 DX:H/O bar iatric surgery; COMMENT: 08/2011 Liz-en-Y and small bowel resection RA (rheumatoid arthritis) ([facility] V24, [facility] V28) 03/19/2018 DX:RA (rheumatoid arthritis) ([facility]) Asthma 11/17/2014 DX:Asthma Anxiety DX:Anxiety Depression 03/19/2018 DX:Depression PCOS (polycystic ovarian syndrome) DX:PCOS (polycystic ovarian syndrome) Vitamin D deficiency 09/22/2021 DX:Vitamin D deficiency Class 3 severe obesity due t o excess calories with serious comorbidity and body mass index (BMI) of 45.0 to 49.9 in adult ([facility] V24, [facility] V28) 03/06/2019 DX:Class 3 severe obesity due to excess calories with serious comorbidity and body mass index (BMI) of 45.0 to 49.9 in adult ([facility]) Iron deficiency anemia 09/22/2021 DX:Iron d eficiency [...] pont Epidur al N Livin g Delivery Location:[facility] 013 Term 39w 0d 3544 g (125 oz) M Vag-S pont None N Livin g Complications:Gestational di abetes mellitus (GDM) Delivery Location:[facility] 015 Term 40w 0d 3430 g (121 oz) F Vag-S pont None N Livin g Complications:Gestational di abetes mellitus (GDM) Delivery Location:[facility] Last Filed Vital Signs Vital Sign Reading [...] Care Team (Late st Contact Info) Description 07/30/2025 9:45 AM EST Office Visit Bariatric Surgery - [address] [address] Cristhian Vaz MD [facility] [place] [address] Scheduled Procedures Name Priority Associated Diagnoses Date/Ti me BRACHIOPLASTY Skin laxity Health Maintenance Due Date Last Done Comments HPV Vaccines (1 - 3-dose SCDM series) 11/05/2010 Social Influencers of Health Screening 05/27/2022 Depression Screening 06/18/2024 Cervical Cancer Screening: Pap Smear 12/12/2024 12/12/2021 COVID-19 Vaccine ( season) 2025 04/19/2021, 08/21/2020, 07/31/2020 Influenza Vaccine (#1) 2025 , 03/16/2023, 04/06/2022, Additional history exists Breast Cancer Screening 11/14/2026 11/15/19, 11/08/2023, 11/07/2023 Cholesterol Screening (Lipid Panel) 10/28/2027 10/27/2022 DTaP,Tdap,and Td Vaccines (5 - Td or Tdap) 12/24/2034 12/24/2024, 08/14/2014, 02/11/2013, Additional history exists RSV Immunization Adult Patients (1 - 1-dose 75+ series) 11/05/2058 Hepatitis [...] Diagnosis Comments MG MAMMO DIGITAL SCREENING W LEE BILAT Routine 11/14/2024 10:12 AM EDT Encounter for screening mammogram for breast cancer PAP SMEAR Routine 12/12/2021 from Last 3 Months or Most Recently Relevant to Health Maintenance Results * MG Mammo Digital Screening w Lee bilat (11/14/2024 10:12 AM EDT) Anatomical Region [...] year. [facility] [address], [address] -------- FINAL REPORT -------- Dictated By: Jordan Caballero Dictated Date: 11/15/2024 12:36 ET Assigned Physician: Jordan Caballero Reviewed and Electronically Signed By: Jordan Caballero Signed Date: 11/15/2024 12:41 ET Workstation ID: [id number] Transcribed By: Self Edit Transcribed Date: 11/15/2024 12:36 ET Narrative 11/15/2024 12:41 PM EDT EXAM: SCREENING MAMMOGRAPHY, BILATERAL HISTORY: SCREENING. Maternal aunt with history of breast cancer. COMPARISON: 11/07/23, 05/04/22 TECHNIQUE: Synthesized CC and MLO projections of each breast. Tomosynthesis of each breast in the CC and MLO projections. ADDITIONAL IMAGING: None Computer-aided detection was employed with the iCAD ProFound AI 3-D. TISSUE DENSITY: There are scattered [...] None Computer-aided detection was employed with the [employer] AI 3-D. TISSUE DENSITY: There are scattered [...] year. [facility]amm[facility] [address], [address] -------- FINAL REPORT -------- Dictated By: Jordan Caballero Dictated Date: 11/15/2024 12:36 ET Assigned Physician: Jordan Caballero Reviewed and Electronically Signed By: Jordan Caballero Signed Date: 11/15/2024 12:41 ET Workstation ID: [id number] Transcribed By: Self Edit Transcribed Date: 11/15/2024 12:36 ET us Self Referral Sppl IMG BI PROCEDURES Final Resul t * Pap smear (12/12/2021) 12/12/2021 Narrative HISTORICAL TESTING LAB RESULTING AGENCY - 12/20/2021 9:30 AM EDT [id number] THINPREP PAP, IMAGED: NEGATIVE FOR SQUAMOUS INTRAEPITHELIAL LESION AND MALIGNANCY . HANNAH BENAVIDES(ASCP) (CASE ELECTRONICALLY SIGNED 12 18 2021) RESULT OF APTIMA HIGH RISK HPV ASSAY: HIGH RISK HPV: NEGATIVE (SEROTYPES 16,18,31,33,35,39,45,51,52,56,58,59,66,68) COMPLETED ON 2021-12-14 ADEQUACY: SATISFACTORY ENDOCERVICAL/TRANSFORMATION ZONE COMPONENT PRESENT. SOURCE: THINPREP PAP HPV ANY DX: REFLEX 16 AND 18, CERVICAL, IMAGED CLINICAL INFORMATION: HPV ANY DIAGNOSIS. HORMONES, [Z01.419] Chalrene Bette [facility] CYTOLOGY ORDERABLES Final R esult HISTORICAL TESTING LAB RESULTING AGENCY from Last 3 Months or Most Recently Relevant to Health Maintenance Insurance MEDICAID - [place] Care Teams Diver Helper Relationship Specialty Start Date End Date Eastern, MD Ginger [address] [address] PCP - General Internal Medicine 10/22/14
--- OUTSIDE RECORDS SUMMARY | 2025-05-08 11:15 | XMS_ITS | Encounter Summary ---
Author Organization [facility] Address [address] [place] [address] Phone Care Team Providers Care Psychological Examiner Name Role Phone Ginger Medel MD Primary Care [facility] Encounter Details Date Type Department Care Team (Late st Contact Info) Description 11/08/2023 Procedure Pass OR Admitting Dept - Virtual Department [address] [place] [address] Social History Tobacco Use Types Packs/Day Years [...] on filedocumented in this encounter Care Teams Psychological Examiner Relationship Specialty Start Date End Date Melber, Ginger Torres MD [address] [place] [phone] PCP - General Family Medicine 08/24/23 documented as of this encounter Additional Source Comments The information contained in this document represents components of the legal health record. It is not the complete legal health record.[facility]
--- OUTSIDE RECORDS SUMMARY | 2025-05-08 11:15 | XMS_ITS | Encounter Summary ---
Author Organization [employer] Address [address] [address] [place] [address] Care Team Providers Care Embedded Linux Developer Name Role Phone Ginger Medel MD Primary Care Provider [phone]- [phone] David Miller Unavailable Unavailable Cristhian Vaz MD Unavailable [phone] Reason for Visit * Reason Comments Med Refill Encounter Details Date Type Department Care Team (Late st Contact Info) Description 07/11/2023 Refill [facility] [address] [place] [address] David Miller FNP Anxious depression Social History [...] 07/12/2023 9:28 AM Sunita Bro MA * How difficult have these problems made it for you to do your work, take care of things at home, or get along with other people? Answer Date of Assessment Author Very difficult 07/12/2023 9:28 AM Norma Bro MA * Over the past 2 [...] documented as of this encounter Care Teams Embedded Linux Developer Relationship Specialty Start Date End Date Ginger Medel MD [address] [place] [address] PCP - General Family Medicine 06/18/18 David Miller FNP [address] [place] [address] Nurse Practitioner Family Medicine 05/01/23 Cristhian Vaz MD [address] [place] [address] [place] [id number] Bariatrics 12/24/24 Eli Holcomb MD Rheumatology 09/01/24 documented as of this encounter
== END 2025-05-08 11:31 | disposition home or self-care (01) ==
LOC: HO.RHES 10:33
PROVIDERS: PCP Family Medicine; Visit Provider Student in an Organized Health Care Education/Training Program
DX: L40.50 Arthropathic psoriasis, unspecified (principal); M54.50 Low back pain, unspecified; G89.29 Other chronic pain; Z79.620 Long term (current) use of immunosuppressive biologic
CPT/HCPCS: 99214

== ENCOUNTER → 2025-05-08 10:32 | Outpatient (BNVA) | payer MEDICAID, SELFPAY | PROVIDERS: PCP Family Medicine; Visit Provider Student in an Organized Health Care Education/Training Program | DX: L40.50 Arthropathic psoriasis, unspecified (principal); Z79.620 Long term (current) use of immunosuppressive biologic; M54.50 Low back pain, unspecified; G89.29 Other chronic pain | CPT/HCPCS: 99212 ==